=== PATIENT | male | born 1965 | race Caucasian/White ===

== ENCOUNTER 2019-01-05 03:06 | Inpatient (IN) | payer MEDICAID ==
[~2019-01-05] VITALS: Ht 180.3 cm; Wt 104.6 kg
[2019-01-05] MEDS ORDERED: PROPRANOLOL HCL20 MG PO (03:10)
[2019-01-05] MEDS ORDERED: CARAFATE1 G PO (03:10)
[2019-01-05] MEDS ORDERED: CLARITIN 10 MG10 MG PO (03:10)
[2019-01-05] MEDS ORDERED: PROTONIX40 MG PO (03:10)
[2019-01-05 03:44] LABS: BASOPHILS 0.5 % (0-2); EOSINOPHILS 2.1 % (0-7); HEMATOCRIT 45.1 % (42.0-54.0); IMMATURE GRANULOCYTES 0.6 % (0-5); LYMPHOCYTES 20.5 % (15-50); MCH 33.4 pg (26.0-34.0); MCHC 35.5 g/dL (31.0-37.0); MCV 94.2 fL (80.0-100.0); MEAN PLATELET VOLUME 11.6 fL (7.4-10.4); MONOCYTES 10.9 % (2-11); NEUTROPHILS 65.4 % (40-80); PLATELET COUNT 102 10x3/uL (130-400); RBC 4.79 10x6/uL (4.20-6.10); RDW 13.8 % (11.5-14.5); WBC 9.5 10x3/uL (4.8-10.8)
[2019-01-05 03:54] LABS: APTT 27.7 SECONDS (22.8-39.4); INR 1.24 (0.85-1.17); PROTIME 15.1 SECONDS (11.6-15.0)
[2019-01-05 03:56] LABS: ALBUMIN 2.6 g/dL (3.4-5.0); ALKALINE PHOSPHATASE 119 U/L (46-116); ALT (SGPT) 165 U/L (10-68); BILIRUBIN - TOTAL 1.63 mg/dL (0.2-1.3); CALC OSMOLALITY 281 mosm/kg (275-300); CARBON DIOXIDE 23.1 mmol/L (21.0-32.0); CHLORIDE - SERUM 108 mmol/L (98-107); CREATININE - SERUM 0.8 mg/dL (0.6-1.3); GLUCOSE 108 mg/dL (74-106); LIPASE 225 U/L (73-393); POTASSIUM - SERUM 4.3 mmol/L (3.5-5.1); PROTEIN - SERUM 7.2 g/dL (6.4-8.2); SODIUM 140 mmol/L (136-145); UREA NITROGEN 19 mg/dL (7-18); eGFR NON AFRICAN AMERICAN > 90 mL/min (90-120)
[2019-01-05 05:05] VITALS: BP 135/88
--- NOTE | 2019-01-05 05:33 | NUR ---
850 ML EMTPIED FROM URINAL
[2019-01-05 06:03] VITALS: BP 144/83
[2019-01-05 06:49] LABS: BASOPHILS 0.6 % (0-2); EOSINOPHILS 1.4 % (0-7); HEMOGLOBIN 14.9 g/dL (13.5-17.5); IMMATURE GRANULOCYTES 0.5 % (0-5); LYMPHOCYTES 26.3 % (15-50); MCH 33.3 pg (26.0-34.0); MCHC 35.5 g/dL (31.0-37.0); MCV 93.8 fL (80.0-100.0); MEAN PLATELET VOLUME 11.8 fL (7.4-10.4); MONOCYTES 11.1 % (2-11); NEUTROPHILS 60.1 % (40-80); PLATELET COUNT 100 10x3/uL (130-400); RBC 4.48 10x6/uL (4.20-6.10); RDW 13.9 % (11.5-14.5); WBC 8.4 10x3/uL (4.8-10.8)
--- NOTE | 2019-01-05 09:25 | NUR ---
VITAMIN K INFUSION COMPLETE AT 0859.
--- NOTE | 2019-01-05 09:56 | NUR ---
RECEIVED PT FROM ER ACCOMPANIED BY HOSPITAL STAFF AND PROJECT SYSTEMS ENGINEER. NS INFUSING @125ML/HR VIA L.AC PIV. PT IS AAO AND UP AD FRANCE PER PROJECT SYSTEMS ENGINEER ALLOWANCE. RR EVEN AND UNLABORED ON RA. PT DENIES ANY NEEDS AT THIS TIME. WILL CTM.
[2019-01-05 12:25] VITALS: BP 129/73; BMI 30.3
[2019-01-05 12:31] VITALS: BP 118/62
[2019-01-05 15:28] VITALS: BP 120/62
--- NOTE | 2019-01-05 18:02 | NUR ---
CONSENTS SIGNED FOR EGD TOMORROW. NS INFUSING @125ML/HR AND PROTONIX INFUSING @10ML/HR VIA R.AC PIV. RR EVEN AND UNLABORED ON RA. GUARD AT BEDSIDE. PT DENIES ANY NEEDS. WILL PASS REPORT AND CONTINUE WITH POC.
--- NOTE | 2019-01-05 19:42 | NUR ---
INITIAL ASSESSMENT COMPLETED - PT A/0 X4, REPORTS FEELING SLIGHTLY LIGHTHEADED. BP 98/65 WITH NS GOING AT 125 ML/HR. BP CHECKED 3 TIMES, STILL 98/65. WILL REASSESS IN 30-45 MINUTES AND DETERMINE IF FURTHER ACTION SHOULD BE TAKEN. MAP 76 MMHG. CL IN REACH, SR UP X2, BED IN LOWEST POSITION. RR EVEN AND UL NO S/S OF DISTRESS.
[2019-01-05 20:00] VITALS: BP 98/65
--- NOTE | 2019-01-05 23:06 | NUR ---
TO PT ROOM VIA CALL LIGHT. PT STATES "I FEEL LIKE I'M ABOUT TO PASS OUT." PT COLD AND CLAMMY TO THE TOUCH. STATES HE JUST HAD A BLACK TARRY BOWEL MOVEMENT AND IS NOT BACK IN BED. BP 118/65, HR STABLE PER SOCIAL SERVICES DESIGNEE AT 90. BLOOD SUGAR 131. SPO2 97%. LABS STABLE, CL IN REACH. WCTM. SR UP X2, BED IN LOWEST POSITION.
[2019-01-06] VITALS (28 sets, daily range): BP systolic 82–146; BP diastolic 52–80; BMI 29.9
--- NOTE | 2019-01-06 01:03 | NUR ---
TO PT ROOM VIA EMESIS SOUND. PT THROWING UP BRIGHT RED BLOOD PROFUSELY. PALE AND COLD. VSS. BP 107/62, HR 88. ADMINISTERED ANTIEMETIC AND CONTINUE PROTONIX DRIP AT 10 ML/HR AND NS AT 125 ML/HR. PT VOMITED 500 ML OF FLUID. NOTIFIED GI DOC TEST RACK OPERATOR, DR SEGAL. ORDERED STAT H&H LABS PER MD ORDER. WCTM. CL IN REACH, SR UPX2, BED IN LOWEST POSITION.
[2019-01-06 01:12] LABS: HEMATOCRIT 33.1 % (42.0-54.0); HEMOGLOBIN 11.7 g/dL (13.5-17.5)
--- NOTE | 2019-01-06 01:25 | NUR ---
RECEIVED STAT H&H LABS. HGB 11.7 AND HCT 33.1. WAS TOLD BY DR SEGAL TO NOTIFY HIM IF HGB WAS BELOW 10. WILL CONTINUE TO MONITOR CLOSELY. VSS. CL IN REACH, BED IN LOWEST POSITION.
[2019-01-06 03:19] LABS: HEMATOCRIT 31.6 % (42.0-54.0); HEMOGLOBIN 11.2 g/dL (13.5-17.5)
--- NOTE | 2019-01-06 03:42 | NUR ---
ARRIVED TO UNIT AFTER RAPID RESPONSE VIA STRETCHER ACCOMPANIED BY RN AND LICENSED GUIDE. PRESENTS PALE AND DIAPHORETIC. AAOX4. PERRLA. RT HAND 20G PIV INITIATED. + BLOOD DRAW AND RETURN. ORIENTED TO ROOM, NIGHT NURSE, AND CALL LANG SYSTEM. VERBALIZES UNDERSTANDING. SAFETY MEASURES IN PLACE. CBIR. WILL TRANFUSE PRBC PER MD ORDER.
--- NOTE | 2019-01-06 03:57 | NUR ---
TO PT ROOM AT 0300 VIA MONTRELL BUENROSTRO. PT VOMITTING BLOOD PROFUSELY. PT FILLED EMESIS BAG X3. PT DIAPHORETIC AND CLAMMY, COOL TO TOUCH. CALLED RAPID RESPONSE AT 0302. RAPID RESPONSE TEAM ARRIVED AT 0305. PT SUCTIONED WITH YONKER AND SAT UP IN BED 90 DEGREES. PT LETHERGIC, DISORIENTED. RESPONDS SLOWLY. PT LOOKS EXTREMELY PALE. 02 GOING AT 2L VIA NC. SPO2 95%. MARITIME OFFICER IN ROOM ALONG WITH ICU, RESPIRATORY, AND CHARGE NURSE. ELEVATED PTS ARMS AND LEGS. COMPLETE LINEN CHANGE DONE. NOTIFIED DR SEGAL. ORDERED STAT LABS PER MD ORDERS. MO, MARITIME OFFICER PUT IN ORDERS FOR BLOOD, ETC. PER MD. PT MAINTAINED NPO STATUS THROUGHOUT THE NIGHT. EGD WITH TIVA TO BE DONE AT 0700. TRANSFERED TO ICU AT 0345 PER MD ORDERS. NOTIFIED PRIMARY CARE PHYSICIAN AND GAVE REPORT TO MONTRELL DEVRIES AT 0350.
[2019-01-06 04:30] LABS: CKMB 0.5 U/L (0.0-3.6); CREATINE KINASE 31 UL (21-232)
[2019-01-06 04:35] LABS: TROPONIN-I 0.133 ng/mL (0.000-0.060)
--- NOTE | 2019-01-06 05:04 | NUR ---
EPISODE OF BRIGHT RED BLOODY EMESIS. APROX 100CC BLOOD LOSS.
[2019-01-06 05:53] LABS: ALBUMIN 2.2 g/dL (3.4-5.0); BILIRUBIN - TOTAL 1.49 mg/dL (0.2-1.3); CALCIUM 7.6 mg/dL (8.5-10.1); CARBON DIOXIDE 18.2 mmol/L (21.0-32.0); MAGNESIUM - SERUM 1.8 mg/dL (1.8-2.4); PROTEIN - SERUM 5.7 g/dL (6.4-8.2)
[2019-01-06 05:55] LABS: BASOPHILS 0.2 % (0-2); EOSINOPHILS 0.2 % (0-7); HEMATOCRIT 34.5 % (42.0-54.0); IMMATURE GRANULOCYTES 0.8 % (0-5); LYMPHOCYTES 21.2 % (15-50); MCH 32.3 pg (26.0-34.0); MCHC 34.8 g/dL (31.0-37.0); MEAN PLATELET VOLUME 11.7 fL (7.4-10.4); MONOCYTES 9.8 % (2-11); NEUTROPHILS 67.8 % (40-80); RBC 3.71 10x6/uL (4.20-6.10); RDW 14.2 % (11.5-14.5)
[2019-01-06 05:57] LABS: ANION GAP 16.6 mmol/L (8-16); CREATININE - SERUM 1.3 mg/dL (0.6-1.3); POTASSIUM - SERUM 5.8 mmol/L (3.5-5.1)
[2019-01-06 06:05] LABS: PLATELET COUNT 140 10x3/uL (130-400); WBC 16.6 10x3/uL (4.8-10.8)
--- NOTE | 2019-01-06 06:19 | NUR ---
DR. SEGAL NOTIFIED OVER CRITICAL LAB VALUES. UPDATE GIVEN. ALL QUESTIONS ANSWERED.
[2019-01-06 09:19] LABS: HEPATITIS C ANTIBODY >11.0 S/CO RAT (0.0-0.9)
--- NOTE | 2019-01-06 11:33 | NUR ---
0700 AM ASSESMENT DONE SEE FLOW SHEET FOR FINDINGS.. PT IS AWAKE WITH RN EMPLOYEE HEALTH AT THE BEDSIDE.. PT IS DENING C/ AT THIS TIME.. NO BOUTS OF NAUSEA AND OR VOMITING AT PRESENT.. 0800 ORAL SWABS GIVEN TO PT FOR C/O DRY MOUTH 0900 CONTINUES WIHTOUT CHANGES IN STATUS.. PT IS DOZING 1000 UNIT PRBC HUNG PER ORDER.. 1030 DR PATEL CALLED AND STATED SHE HAD ORDERED FFP... 1100 PRBC CONTINUES TO INFUSE, FFP HUNG AND STARTED INFUSION.. 1130 GI LAB AT BEDSIDE WITH DR PATEL.. DR PATEL VO SANDOSTATIN GTT..
--- NOTE | 2019-01-06 11:53 | NUR ---
4850 DR SANDY CONSULTED PER DR PATEL.. ORAL ETT IN PLACE.. DIPRIVAN INFUASING...PER ANESTHESIA AT BEDSIDE FOR GI..
--- NOTE | 2019-01-06 13:04 | NUR ---
1235 DR PATEL AND GI LAB GONE FROM BEDSIDE... PT REMAINS ORALLY INTUBATED DR SANDY IN SEEING PT SOFT RESTRAINSTS ON AT THIS TIME.. DIPRIVAN INFUSING.. GUARD AT BEDSIDE.. 3RD AND 4TH UNIT FFP STARTED PRBC CONTINUE TO INFUSE.. DR PATEL TALING TO IR RE PT... 1300 PRBC THRU INFUSING.. 1305 LAB IN TO DRAW BLOOD PER ORDER..
[2019-01-06 13:40] LABS: HEMATOCRIT 29.1 % (42.0-54.0); HEMOGLOBIN 10.1 g/dL (13.5-17.5)
--- NOTE | 2019-01-06 14:28 | NUR ---
1400 FFP AND PRBC THRU INFUSING , SANDOSTATIN DRIP INFUSING, NS HUNG AND REGLAN GIVEN. DIPRIVAN CONITNUES TO INFUSE. DR PATEL WANTS PT TO BE TOTALLY CALM AND RIDING VENT.. STATED THAT SHE WANTS DIPRIVAN TO CONTINUE TO INFUSE, SHE IS AWARE OF LIVER FUNCTION ...BUT STATES SHE CANNOT RISK ATIENT WAKING AND BREAKING CLOT IN GI TRACT LOOSE..
--- NOTE | 2019-01-06 16:00 | MORECARE ---
CASE MANAGEMENT DISCHARGE SUMMARY PATIENT: BRIAN GIRON UNIT: [id number] ADM DATE: 01/05/19 AGE: 53 : 65 SEX: M ROOM/BED: D.2306 AUTHOR: REESE HAYWARD PHYSICIAN: REFERRING PHYSICIAN: JAE FLORES DO DATE OF SERVICE: 01/06/19 Discharge Plan Patient Name: BRIAN GIRON [facility] [facility] 1965 Planned Disposition: Court\Law Enforcement Anticipated Discharge Date: Discharge Date: Expected LOS: Initial Reviewer: [email or web address] Initial Review Date: 01/05/2019 Generated: 01/06/19 5:00 pm Patient Name: BRIAN GIRON Page [phone] at 1600 All edits/amendments must be made on the electronic document DICTATION DATE: 01/06/199 CORPORATE OPERATIONS COMPLIANCE MANAGER: PERLA 01/06/19 155 RPT#: [id number] DC DATE: STATUS: ADM IN [facility] [address] [place] [address] END OF REPORT
--- NOTE | 2019-01-06 16:10 | MORECARE ---
CASE MANAGEMENT DISCHARGE SUMMARY PATIENT: BRIAN GIRON UNIT: [id number] ADM DATE: 01/05/19 AGE: 53 : 65 SEX: M ROOM/BED: D.2306 AUTHOR: REESE HAYWARD PHYSICIAN: REFERRING PHYSICIAN: JAE FLORES DO DATE OF SERVICE: 01/06/19 Discharge Plan Patient Name: BRIAN GIRON [facility] [facility] 1965 Planned Disposition: Court\Law Enforcement Anticipated Discharge Date: Discharge Date: Expected LOS: Initial Reviewer: [email or web address] Initial Review Date: 01/05/2019 Generated: 01/06/19 5:10 pm Comments DCP- Discharge Planning Updated by [email or web address]: Deana Barfield on 01/06/19 3:[address] Patient Name: BRIAN GIRON Admission Status: ER Accout number: [id number] Admission Date: 01-05-2019 : 1965 Admission Diagnosis: Attending: JAE FLORES Current LOS: 1 Anticipated DC Date: Planned Disposition: Court\Law Enforcement Primary Insurance: MEDICAID GROUP HOME PENDING Discharge Planning Comments: PATIENT IS CURRENTLY ON VENT / SEDATED. HE IS PRISONER AT [facility] AND WILL RETURN UPON DISCHARGE. GUARD IN ROOM WITH PATIENT. CM WILL CONTINUE TO FOLLOW AND ASSIST NEEDED. Atomic Process Engineer: Deana Barfield Last DP export: 01/06/19 3:00 pm Patient Name: BRIAN GIRON Page [phone] at 1610 All edits/amendments must be made on the electronic document DICTATION DATE: 01/06/19 1610 [employer] ARCHITECT: PERLA 01/06/19 1610 RPT#: [id number] DC DATE: STATUS: ADM IN [facility] [address] [place] [address] END OF REPORT
--- NOTE | 2019-01-06 17:22 | NUR ---
1500 PT REDIED AND PORTABLE VENT SET UP FOR TRANSPORT TO CT SCAN PER ORDER.. [address] SCAN RT AND RN WITH PT..25 MCG FENTANYLL GIVEN PRIOR TO TRANSPORT.. DIPRIVAN CONTINUES TO IINFUSE [address] BATH WITH COMPLETE LINEN CHANGE DONE.. INCONTINENT OF BLACK TARRY STOOL.. PT REMAINS SEDATED ON VENT ... 1615 UNIT PRBC HUNG PER ORDER.. INTO THE PICC LINE
--- NOTE | 2019-01-06 17:32 | NUR ---
6940 DR SOARES IN TO SEE PT.. SPOKE WITH DR PATEL AT BEDSIDE.. DR SANDY IN UPDATE GIVEN..
--- NOTE | 2019-01-06 18:32 | NUR ---
1800 LAB DRAWN AND AMMOMNIA LEVEL [address] PATEL.. HOLD EMEMAS FOR NOW REDRAW IN AM 1830 DR SOARES CALLED WITH AMMONIA LEVEL RESULTS..
--- NOTE | 2019-01-06 19:32 | NUR ---
BEDSIDE SHIFT REPORT GIVEN BY DEPARTING RN. PT SEDATED ON VENT. SEE VENT FLOWSHEET FOR FULL DETAILS. PERRLA. OPENS EYES TO TACTILE STIMULATION. PULSES PALPATED T/O. HYPERACTIVE BS HEARD IN ALL FOUR QUADS. ASSESSMENT COMPLETE. SEE FLOWSHEET FOR DETAILS. REPOSITIONED AND ORAL CARE PROVIDED. SAFETY MEASURES IN PLACE. CBIR.
[2019-01-06 20:38] LABS: HEMATOCRIT 27.7 % (42.0-54.0); HEMOGLOBIN 9.6 g/dL (13.5-17.5)
--- NOTE | 2019-01-06 21:48 | NUR ---
HS MEDS GIVEN. TOLERATED WELL.
--- NOTE | 2019-01-06 23:51 | NUR ---
REASSESSMENT COMPLETE. NO CHANGES IN PT CONDITION. REPOSITIONED. ORAL CARE PROVIDED.
[2019-01-07] VITALS (26 sets, daily range): BP systolic 117–191; BP diastolic 69–100
[2019-01-07 00:56] LABS: HEMOGLOBIN 10.9 g/dL (13.5-17.5)
--- NOTE | 2019-01-07 01:06 | NUR ---
REPOSITIONED. ORAL CARE PROVIDED. NO SS OF DISTRESS NOTED.
--- NOTE | 2019-01-07 03:07 | NUR ---
REPOSITIONED. ORAL CARE PROVIDED. NO CHANGE IN PT CONDITION.
[2019-01-07 04:35] LABS: HEMATOCRIT 30.9 % (42.0-54.0); HEMOGLOBIN 10.7 g/dL (13.5-17.5); MCH 30.9 pg (26.0-34.0); MCHC 34.6 g/dL (31.0-37.0); MCV 89.3 fL (80.0-100.0); PLATELET COUNT 78 10x3/uL (130-400); RBC 3.46 10x6/uL (4.20-6.10); RDW 16.3 % (11.5-14.5); WBC 21.2 10x3/uL (4.8-10.8)
[2019-01-07 04:50] LABS: ALBUMIN 2.3 g/dL (3.4-5.0); BILIRUBIN - TOTAL 1.16 mg/dL (0.2-1.3); CALCIUM 7.5 mg/dL (8.5-10.1); CARBON DIOXIDE 20.6 mmol/L (21.0-32.0); CREATININE - SERUM 1.2 mg/dL (0.6-1.3); MAGNESIUM - SERUM 1.7 mg/dL (1.8-2.4); PROTEIN - SERUM 5.3 g/dL (6.4-8.2)
[2019-01-07 04:52] LABS: POTASSIUM - SERUM 4.6 mmol/L (3.5-5.1)
[2019-01-07 04:56] LABS: LYMPHOCYTES 15 % (15-50); MONOCYTES 15 % (2-11); NEUTROPHILS 70 % (40-80)
[2019-01-07 04:57] LABS: PLATELET ESTIMATE DECREASED
[2019-01-07 06:22] LABS: INR 1.27 (0.85-1.17); PROTIME 15.3 SECONDS (11.6-15.0)
--- NOTE | 2019-01-07 06:32 | NUR ---
SEIZURE LIKE ACTIVITY. VIKA PHONED. ORDER TO INCREASE SEDATION AND GIVE PRN VERSED.
--- NOTE | 2019-01-07 06:48 | NUR ---
DYLAN INFORMED OF PT STATUS AND LAB LEVELS. ORDERS TO GIVE LACTULOSE ENEMA.
--- NOTE | 2019-01-07 09:17 | NUR ---
0700 PT RECIEVED SEDATED ON VENT, VSS, NO SIGNS OF PAIN, PICC LINE TO LUE, R HAND AND R AC PIV, SANDOSTATIN 10ML/HR, NS 100ML/HR, PROTONIX 10ML/HR, MORALES DRAINING CONCENTRATED URINE, NO SIGNS OF BLEEDING [address] PATEL AND DR SANDY, NO SINGS OF BLEEDING AFTER ENEMA, NO SIGNS OF PAIN, WILL WEAN OFF DIPROVAN AND BEGIN VENT WEANING 0915 DARK JELLO LIKE BOWEL MOVEMENT, TOTAL LINEN CHANGE AND BED BATH, DR SANDY AND AMANDA NOTIFIED PER DR PATEL LACTULOSE ENEMAS BID
--- NOTE | 2019-01-07 10:26 | NUR ---
PT REMAINS UNABLE TO FOLLOW COMMANDS OR OPEN EYES TO VERBAL STIMULI, DR SANDY AWARE
--- NOTE | 2019-01-07 10:50 | NUR ---
PT NOTED TO HAVE ANOTHER DARK LIQUID STOOL, LINENS CHANGED AND PERICARE PROVIDED, NOTED TO HAVE SHIVERING.SHAKING MOTION IN UPPER EXTRMETIES AND NO LONGER WITHDRAWING TO PAIN, DR SANDY IN UNIT AND CALLED TO ROOM TO ASSESS PT, SEDATION TO REMAIN OFF AND CT ORDERED
--- NOTE | 2019-01-07 12:17 | NUR ---
1130PT TO CT WITHRT AND MYSELF AND RETURNED TO ROOM, CONTINUES WITH INTERMITTEN SHIVERING/SHAKING MOTION
[2019-01-07 12:26] LABS: HEMATOCRIT 31.5 % (42.0-54.0); HEMOGLOBIN 10.9 g/dL (13.5-17.5)
--- NOTE | 2019-01-07 12:59 | NUR ---
NOTIFIED DR SANDY OF HR AND BP ELEVATION SINCE HEAD CT, ORDERS TO RESTART DIPROVAN, START FENTANYL, GIVE 2MG VERSED NOW.
--- NOTE | 2019-01-07 17:12 | NUR ---
1500 PT REPOSITIONED NO SIGNS OF BLEEDING, WITHDRAWS TO PAIN FROM CHEST AREA BUT NOT EXTREMETIES, PUPILS REACTIVE 1700 PUPILS FIXED AND NO LONGER REACTING TO PAIN OR GAGGING WITH SUCTION, DR RAI NOTIFIED WITH ORDERS TO CONSULT ALLAN AT [facility] AND REPEAT HEAD CT IN AM, NOTIFIED DR SANDY WELL PER DR RAI, SPOKE WITH DR LEMUS WHO SUGGESTED CEREBRAL FLOW SSTUDY IN AM INSTEAD OF CT, SPOKE WITH DR RAI AND AGREED FLOW STUDY INSTEAD OF CT IN AM.
[2019-01-07 18:25] LABS: HEMATOCRIT 29.2 % (42.0-54.0); HEMOGLOBIN 10.1 g/dL (13.5-17.5)
--- NOTE | 2019-01-07 18:41 | NUR ---
SPOKE WITH DR SANDY IN UNIT, STATED TO WEAN PROPOFOL TO SEE IF PT AWAKENS, PROPOFOL DOWN TO 15MCG,
--- NOTE | 2019-01-07 18:54 | NUR ---
SPOKE WITH REINIER FROM [facility] ON PT CONDITION
--- NOTE | 2019-01-07 19:20 | NUR ---
RECEIVED PATIENT CARE - SHIFT ASSESSMENT COMPLETED. PT UNRESPONSIVE TO PAIN, PUPILS 2 AND FIXED. SINUS TACH 120 NOTED AT THIS TIME. BP SLIGHTLY ELEVATED. CPOC
--- NOTE | 2019-01-07 22:15 | NUR ---
DR. FLORES CONTACTED BY JANETT PATIÑO RN REGARDING PATIENT BP - NEW ORDERS RECEIVED
--- NOTE | 2019-01-07 22:40 | NUR ---
REASSESSMENT COMPLETED. PT MOVING HEAD, GAG REFLEX INTACT, PUPILS REACTIVE - SEE FLOWSHEET FOR FURTHER DETAIL
--- NOTE | 2019-01-07 23:08 | NUR ---
ORDERING BOX OPERATOR CONTACTED REGARDING MEDICATIONS NEEDED
[2019-01-08] VITALS (24 sets, daily range): BP systolic 101–155; BP diastolic 59–88
--- NOTE | 2019-01-08 00:55 | NUR ---
[facility]
[2019-01-08 02:16] LABS: BASOPHILS 0.4 % (0-2); EOSINOPHILS 0.2 % (0-7); HEMATOCRIT 31.6 % (42.0-54.0); HEMOGLOBIN 10.5 g/dL (13.5-17.5); IMMATURE GRANULOCYTES 1.2 % (0-5); LYMPHOCYTES 18.6 % (15-50); MCH 30.8 pg (26.0-34.0); MCHC 33.2 g/dL (31.0-37.0); MONOCYTES 5.9 % (2-11); NEUTROPHILS 73.7 % (40-80); PLATELET COUNT 68 10x3/uL (130-400); RBC 3.41 10x6/uL (4.20-6.10); RDW 16.6 % (11.5-14.5)
--- NOTE | 2019-01-08 02:18 | NUR ---
DR. FLORES RETURNED CALLED - NEW ORDERS RECEIVED
[2019-01-08 02:21] LABS: MCV 92.7 fL (80.0-100.0); WBC 10.1 10x3/uL (4.8-10.8)
[2019-01-08 02:30] LABS: ALBUMIN 2.3 g/dL (3.4-5.0); ANION GAP 14.1 mmol/L (8-16); BILIRUBIN - TOTAL 2.18 mg/dL (0.2-1.3); CALCIUM 7.3 mg/dL (8.5-10.1); CARBON DIOXIDE 20.9 mmol/L (21.0-32.0); CREATININE - SERUM 1.3 mg/dL (0.6-1.3); MAGNESIUM - SERUM 1.9 mg/dL (1.8-2.4); PROTEIN - SERUM 5.4 g/dL (6.4-8.2)
--- NOTE | 2019-01-08 02:55 | NUR ---
REASSESSMENT COMPLETED SEE FLOWSHEET
--- NOTE | 2019-01-08 04:03 | NUR ---
TEMP REEVALUATED 99.6 PATIENT STILL SINUS TACH RATE 146
--- NOTE | 2019-01-08 07:30 | NUR ---
REC'ED REPORT FROM OUT GOING RN - R.TTl AT BEDSIDE - INFORMED THIS RN PATIENT WAS PLACED ON RESTRAINTS HE WAS RAISING ARMS TRYING TO PULL OUT INTUBATION TUBE - ORDER ENTERED PER PROTOCOL - CPOC AND MONTIOR CLOSELY
--- NOTE | 2019-01-08 07:50 | NUR ---
ASSESSMENT COMPLETE - OFFICER SCHULTZ AT [facility] FOR MONITORING - [facility]
--- NOTE | 2019-01-08 08:11 | NUR ---
ASKED CREATIVE RESOURCE MANAGER TO BRING LACTULOSE ENEMIA Rx - TECH VERBALIZED UNDERSTANDING
--- NOTE | 2019-01-08 08:36 | NUR ---
DR. SANDY AT BEDSIDE - ORDERED ONE TIME METOPROLOL - MONITOIR AND REPORT FINDINGS
--- NOTE | 2019-01-08 09:39 | NUR ---
SPOKE TO ANETTE DEL VALLE - REVIEWED PT'S CONDITION - WILL CONTINUE TO FOLLOW
--- NOTE | 2019-01-08 09:40 | NUR ---
[facility] JEREMY (JOHN) CALLED TO DISCUSS CERBREAL BLOOD FLOW STUDY - INFORMED PER REPORT DR TELLO WILL COME TO UNIT AROUND 10:00 TO REVIEW PATIENT'S CONDITION - NOTIED PLAN FOR 11:30 - ASKED TO NOTIFY JOHN IF CONTINUE PROCEDURE -
--- NOTE | 2019-01-08 09:45 | NUR ---
ELIGIO CALLED TO REVIEW GLASCOW SCALE (10) THIS A.M. - INFORMED THEY WILL STOP FOLLOWING PATIENT AT THIS TIME. CPOC
--- NOTE | 2019-01-08 10:45 | NUR ---
DR. PATEL AT BEDSIDE FOR ASSESSMENT - AWAITING NEW ORDERS - CPOC
--- NOTE | 2019-01-08 11:00 | NUR ---
CPAP AT 40% PER R.T. - DR. SANDY INFORMED
--- NOTE | 2019-01-08 11:37 | NUR ---
CONFIRMED WITH OFFICER SCHULTZ - SISTER MS. SERRANO AND BROTHER MR. GIRON HAS PERMISSION TO VISIT PATIENT. INFORMED FURRIER DESIGNER. REMINDED VISITING HOURS BEGIN AT NOON TILL 2PM. FURRIER DESIGNER WILL INFORM FAMILY
--- NOTE | 2019-01-08 11:55 | NUR ---
FAMILY CAME TO BEDSIDE - ASKED QUESITON - HOWEVER, R.T. AT BEDSIDE INSTRUCTED FAMILY A ABG TEST NEEDS TO BE DONE AND THEY CAN COME IN AFTER PROCEDURE TO VISIT. FAMILY VERBALIZED UDNERSTTANDING.
--- NOTE | 2019-01-08 12:14 | NUR ---
DR. SANDY AT BEDSIDE - ORDERS RECIEVED - SEE MAR -
--- NOTE | 2019-01-08 13:10 | NUR ---
FAMILY LEFT TO EAT AND ASKED FOR PATIENT'S BATH TO WAIT UNTIL AFTER THE CURRENT VISITATION - CPOC
[2019-01-08 13:23] LABS: HEMATOCRIT 27.3 % (42.0-54.0); HEMOGLOBIN 9.1 g/dL (13.5-17.5)
--- NOTE | 2019-01-08 13:40 | NUR ---
A FEMALE CALLED WITH [employer] - INFORMED THIS RN SHE WAS A NURSE AND WANTED TO DISCUSS MEDICAL DETIALS OF PATIENT - INFORMED HER THIS RN WAS NOT COMFORTABLE WITH THE CONVERSATION AND WOULD DISCUSS WITH FAMILY AND FACILITY STAFF TO CONFIEDENTIALITY OF PATIENT'S CARE. VERBALIZED UNDERSTANDING - CALL WAS DICONNECTED
--- NOTE | 2019-01-08 13:52 | NUR ---
INFORMED SISTER/BROTHER OF ABOVE PHONE CALL - REVIEWED CONCERNS TO PATIENT'S PRIVACY HE IS CONFIDENTAL STATUS - SISTER/BROTHER HAD SPECIAL PERMISSION TO SEE PATIENT PATIENT'S CONDITION WAS DETEROIATING - VERBALIZED UNDERSTANDING. FAMILY GAVE DIRECT PHONE NUMBERS ASKED FOR STAFF TO CALL WHEN PATIENT IS EXTUBATED - ADOLFO GIRON: [phone] - OR - [phone] ZARI SERRANO [phone]
--- NOTE | 2019-01-08 14:30 | NUR ---
TOTAL BED BATH - CHANGED LINENS/BED CLOTHES - REPOSITIONED PT - VSS - CPOC
--- NOTE | 2019-01-08 15:26 | NUR ---
Mar AT BEDSIDE FOR TREATMENT - VSS - CPOC
--- NOTE | 2019-01-08 16:00 | NUR ---
I&O COMPLTETED - LACTOSE ENEMA GIVEN
[2019-01-08 18:42] LABS: HEMOGLOBIN 8.6 g/dL (13.5-17.5)
--- NOTE | 2019-01-08 19:25 | NUR ---
CLEANED PT - CHANGED LINENS/CLOTHES WITH ASSISTX 3 REPORT TAYLOR TO DIANA HILLS
--- NOTE | 2019-01-08 19:40 | NUR ---
RECEIVED PATIENT CARE - SHIFT ASSESSMENT COMPLETED SEE FLOWSHEET
--- NOTE | 2019-01-08 20:48 | NUR ---
PATIENT IN NEED OF 1 UNIT PER GI PARAMETERS AND LAST LAB DRAW AT 1820 - CONTACTED LAB - 1 UNIT IS AVAILABLE FOR THIS PATIENT
--- NOTE | 2019-01-08 21:19 | NUR ---
1 UNIT PRBC INTIATED
--- NOTE | 2019-01-08 22:03 | NUR ---
RT AT BEDSIDE, PATIENT IS ON A RATE - LIGHT SEDATION INITIATED
--- NOTE | 2019-01-08 23:33 | NUR ---
UNIT PRBC COMPLETED AT THIS TIME, SHIFT ASSESSMENT COMPLETED 2308 - CPOC - STARTED LIGHT SEDATION MEDICATION FOR VENTILATOR COMPLIANCE PER ORDER. SEE EMAR FOR ADMINISTRATION
[2019-01-09] VITALS (25 sets, daily range): BP systolic 98–198; BP diastolic 55–107; Ht 180.3 cm; Wt 104.6 kg
[2019-01-09 01:25] LABS: HEMATOCRIT 26.2 % (42.0-54.0); HEMOGLOBIN 8.8 g/dL (13.5-17.5)
--- NOTE | 2019-01-09 05:23 | NUR ---
PT SISTER CALLED FOR UPDATE. GUARD AT BEDSIDE SAID COMMUNICATION BETWEEN NURSE AND FAMILY IS PER FACILITY PROTOCOL. IN PERSON VISITATION MUST BE APPROVED THROUGH [facility]. SISTER GAVE PASSWORD UPDATE GIVEN ALL QUESTIONS ANSWERED WILL CONTINUE TO MONITOR
[2019-01-09 06:12] LABS: INR 1.56 (0.85-1.17); PROTIME 18.1 SECONDS (11.6-15.0)
[2019-01-09 06:13] LABS: BASOPHILS 0.5 % (0-2); EOSINOPHILS 1.8 % (0-7); HEMATOCRIT 25.1 % (42.0-54.0); HEMOGLOBIN 8.4 g/dL (13.5-17.5); IMMATURE GRANULOCYTES 0.5 % (0-5); LYMPHOCYTES 22.5 % (15-50); MCHC 33.5 g/dL (31.0-37.0); MCV 92.6 fL (80.0-100.0); MEAN PLATELET VOLUME 11.7 fL (7.4-10.4); MONOCYTES 12.2 % (2-11); NEUTROPHILS 62.5 % (40-80); RDW 16.2 % (11.5-14.5)
[2019-01-09 06:15] LABS: PLATELET COUNT 29 10x3/uL (130-400); RBC 2.71 10x6/uL (4.20-6.10); WBC 4.4 10x3/uL (4.8-10.8)
[2019-01-09 06:36] LABS: ALKALINE PHOSPHATASE 48 U/L (46-116); BILIRUBIN - TOTAL 2.69 mg/dL (0.2-1.3); CALCIUM 7.1 mg/dL (8.5-10.1); CHLORIDE - SERUM 113 mmol/L (98-107); MAGNESIUM - SERUM 2.2 mg/dL (1.8-2.4); POTASSIUM - SERUM 3.6 mmol/L (3.5-5.1); PROTEIN - SERUM 4.6 g/dL (6.4-8.2); SODIUM 148 mmol/L (136-145); UREA NITROGEN 29 mg/dL (7-18); eGFR NON AFRICAN AMERICAN 83 mL/min (90-120)
[2019-01-09 06:37] LABS: ALBUMIN 1.7 g/dL (3.4-5.0); ALT (SGPT) 48 U/L (10-68); CALC OSMOLALITY 308 mosm/kg (275-300); GLUCOSE 259 mg/dL (74-106)
--- NOTE | 2019-01-09 07:25 | NUR ---
REPORT RECIEVED, SHIFT ASSESSMENT COMPLETE, PT IS RESTRAINED ON VENT, ALL PPP, VSS, WILL CON'T TO MONITOR
--- NOTE | 2019-01-09 07:40 | NUR ---
CRITICAL LAB RESULTS CALLED TO DR PATEL - NEW ORDERS RECEIVED
[2019-01-09 08:08] LABS: PLATELET ESTIMATE DECREASED
--- NOTE | 2019-01-09 11:09 | NUR ---
REASSESSMENT COMPLETE, PT MORE AWAKE AT THIS TIME, NO OTHER CHANGES NOTED, ALL PPP, VSS, WILL CON'T TO MONITOR
--- NOTE | 2019-01-09 12:10 | NUR ---
PT EXTUBATED TO 75% BIPAP
--- NOTE | 2019-01-09 13:08 | NUR ---
PT REMAINS ON BIPAP, DR. PATEL AT BEDSIDE, UPDATE GIVEN
[2019-01-09 15:02] LABS: HEMATOCRIT 29.8 % (42.0-54.0)
[2019-01-09 15:03] LABS: HEMOGLOBIN 10.1 g/dL (13.5-17.5)
--- NOTE | 2019-01-09 15:13 | NUR ---
DR. BECK AT BEDSIDE, UPDATE GIVEN, NEW ORDERS RECIEVED,
[2019-01-09 15:42] LABS: D-DIMER-QUANTITATIVE 1.83 ug/mLFEU (0.20-0.54)
--- NOTE | 2019-01-09 17:30 | NUR ---
LG BM AT THIS TIME, COMPLETE BATH AND LINEN CHANGE
--- NOTE | 2019-01-09 19:00 | NUR ---
RECEIVED PATIENT CARE, SHIFT ASSESSMENT COMPLETED SEE FLOWSHEET.
--- NOTE | 2019-01-09 20:11 | NUR ---
RECEIVED PT CARE - SHIFT ASSESSMENT COMPLETED SEE FLOWSHEET - PATIENT AAOX3 - REQUESTING COKE, NO DIET ORDERED AT THIS TIME. VSS - ELEVATED SYSTOLIC NOTED AT THIS TIME. PT STATES HE TAKES MEDICATION FOR HYPERTENSION. CPOC
--- NOTE | 2019-01-09 21:08 | NUR ---
HS MEDS RECEIVED - PT AAOX3 - VSS CPOC
[2019-01-09 21:38] LABS: HEMATOCRIT 29.5 % (42.0-54.0); HEMOGLOBIN 9.9 g/dL (13.5-17.5)
--- NOTE | 2019-01-09 22:26 | NUR ---
GUARD AT BEDSIDE, GUARD RESTRAINED PATIENT LEGS TO BED ATTEMPTING TO CLIMB OUT OF BED. PT RESTING COMFORTABLY AT THIS TIME. BIPAP @ 75 - VSS. CPOC
--- NOTE | 2019-01-09 23:08 | NUR ---
REASSESSMENT COMPLETED SEE FLOWSHEET PT TAKING OFF BIPAP - PT EDUCATED ABOUT IMPORTANCE OF MASK
[2019-01-10] VITALS (24 sets, daily range): BP systolic 97–128; BP diastolic 59–78
--- NOTE | 2019-01-10 02:08 | NUR ---
PT RECEIVED FULL BATH AND LINEN CHANGE. 600CC LIQUID BLACK STOOL NOTED. NEW STAT LOCK AND SCDS APPLIED TO PATIENT. PATIENT PERFORMED ORAL CARE WITH SET UP. VSS. CPOC
--- NOTE | 2019-01-10 03:30 | NUR ---
REASSESSMENT COMPLETED SEE FLOWSHEET
--- NOTE | 2019-01-10 04:28 | NUR ---
RT AT BEDSIDE, BIPAP REMOVED AT THIS TIME - PATIENT PUT ON NASAL CANNULA
[2019-01-10 05:30] LABS: BASOPHILS 0.2 % (0-2); EOSINOPHILS 1.5 % (0-7); HEMATOCRIT 29.3 % (42.0-54.0); HEMOGLOBIN 9.8 g/dL (13.5-17.5); IMMATURE GRANULOCYTES 1.1 % (0-5); LYMPHOCYTES 14.7 % (15-50); MCH 31.1 pg (26.0-34.0); MCHC 33.4 g/dL (31.0-37.0); MEAN PLATELET VOLUME 11.1 fL (7.4-10.4); MONOCYTES 12.8 % (2-11); NEUTROPHILS 69.7 % (40-80); RBC 3.15 10x6/uL (4.20-6.10); RDW 16.2 % (11.5-14.5); WBC 4.7 10x3/uL (4.8-10.8)
[2019-01-10 05:31] LABS: PLATELET COUNT 39 10x3/uL (130-400)
--- NOTE | 2019-01-10 05:34 | NUR ---
SISTER CALLED FOR UPDATE. ALL QUESTIONS ANSWERED UPDATE GIVEN
[2019-01-10 05:57] LABS: PLATELET ESTIMATE DECREASED; PLATELET MORPHOLOGY NORMAL PLT MORPH
[2019-01-10 06:03] LABS: ALKALINE PHOSPHATASE 61 U/L (46-116); ALT (SGPT) 49 U/L (10-68); BILIRUBIN - TOTAL 4.23 mg/dL (0.2-1.3); CALCIUM 7.7 mg/dL (8.5-10.1); CARBON DIOXIDE 26.9 mmol/L (21.0-32.0); MAGNESIUM - SERUM 2.3 mg/dL (1.8-2.4); POTASSIUM - SERUM 3.7 mmol/L (3.5-5.1); PROTEIN - SERUM 5.4 g/dL (6.4-8.2); SODIUM 154 mmol/L (136-145); UREA NITROGEN 24 mg/dL (7-18); eGFR NON AFRICAN AMERICAN 83 mL/min (90-120)
[2019-01-10 06:19] LABS: CALC OSMOLALITY 310 mosm/kg (275-300); GLUCOSE 131 mg/dL (74-106)
[2019-01-10 06:22] LABS: CHLORIDE - SERUM 119 mmol/L (98-107)
--- NOTE | 2019-01-10 07:00 | NUR ---
REPORT RECEIVED INITIAL ASSESSMENT COMPLETE. PT SITTING UP IN BED AWAKE ALERT AND ORIENTED FOLLOWS COMMANDS. RESP EVEN NONLABORED HAVE INSTRUCTED HIM TO TAKE DEEP BREATHS HIS O2 SATS DROP TO 89. O2 NC 6LPM. CM NSR ALARMS ON AND AUDIBLE. GUARD AT BEDSIDE
[2019-01-10 07:49] LABS: INR 1.3 (0.85-1.17); PROTIME 15.6 SECONDS (11.6-15.0)
--- NOTE | 2019-01-10 09:00 | NUR ---
PT HAD SMALL LIQUID BROWN STOOL, PARTIAL BED BATH
--- NOTE | 2019-01-10 10:22 | NUR ---
Nutrition follow-up: Pt extubated 01/09/19; remains NPO due to GI bleed Labs reviewed +BM; Lactulose BID to elevated NH3 Wt: 218# Will need nutrition support started if diet unable to start within [address] following.
--- NOTE | 2019-01-10 11:00 | NUR ---
REASSESSMENT MADE. VSS NO CHANGES
--- NOTE | 2019-01-10 12:15 | NUR ---
DR SCHERER HERE FOR ROUNDS
--- NOTE | 2019-01-10 14:00 | NUR ---
PT RESTING QUIETLY WITH EYES CLOSED VSS GUARD AT BEDSIDE
[2019-01-10 16:46] LABS: HEMATOCRIT 30.5 % (42.0-54.0)
--- NOTE | 2019-01-10 17:00 | NUR ---
PT HAD LARGE LIQUID DARK BROWN STOOL. COMPLETE LINEN CHANGE PARTIAL BED BATH.
--- NOTE | 2019-01-10 18:00 | NUR ---
DR PATEL ROUNDS SHE DID OK HIM TO HAVE ICE CHIPS.
[2019-01-10 21:48] LABS: HEMATOCRIT 32.5 % (42.0-54.0); HEMOGLOBIN 10.8 g/dL (13.5-17.5)
--- NOTE | 2019-01-10 22:53 | NUR ---
LACTULOSE ENEMA GIVEN AND PATIENT TOLERATED WELL. PT IS SITTING WITH HOB, COOPERATIVE, ELEVATED, AND EATING ICE CHIPS.
[2019-01-11] VITALS (24 sets, daily range): BP systolic 103–157; BP diastolic 54–94
--- NOTE | 2019-01-11 07:00 | NUR ---
SHIFT ASSESSMENT COMPLETED, PT CARE ASSUMED, MONITORS ON AND WORKING, VITALS STABLE, PT AWAKE AND ALERT, NO SIGNS/SYMPTOMS OF PAIN OR DISCOMFORT, WILL CONTINUE TO OBSERVE.
[2019-01-11 07:26] LABS: BASOPHILS 0.3 % (0-2); EOSINOPHILS 0 % (0-7); HEMATOCRIT 32.9 % (42.0-54.0); HEMOGLOBIN 10.7 g/dL (13.5-17.5); IMMATURE GRANULOCYTES 1.3 % (0-5); LYMPHOCYTES 15.6 % (15-50); MCH 30.8 pg (26.0-34.0); MCHC 32.5 g/dL (31.0-37.0); MCV 94.8 fL (80.0-100.0); MEAN PLATELET VOLUME 11.2 fL (7.4-10.4); MONOCYTES 5.3 % (2-11); NEUTROPHILS 77.5 % (40-80); RBC 3.47 10x6/uL (4.20-6.10); RDW 16.2 % (11.5-14.5); WBC 3.8 10x3/uL (4.8-10.8)
[2019-01-11 07:27] LABS: ALKALINE PHOSPHATASE 68 U/L (46-116); ALT (SGPT) 57 U/L (10-68); BILIRUBIN - TOTAL 3.62 mg/dL (0.2-1.3); CALC OSMOLALITY 312 mosm/kg (275-300); CALCIUM 7.7 mg/dL (8.5-10.1); CARBON DIOXIDE 24.8 mmol/L (21.0-32.0); CREATININE - SERUM 0.9 mg/dL (0.6-1.3); GLUCOSE 149 mg/dL (74-106); POTASSIUM - SERUM 3.7 mmol/L (3.5-5.1); PRO BNP 2220 pg/mL (0-125); PROTEIN - SERUM 5.4 g/dL (6.4-8.2); SODIUM 153 mmol/L (136-145); UREA NITROGEN 28 mg/dL (7-18); eGFR NON AFRICAN AMERICAN > 90 mL/min (90-120)
[2019-01-11 07:32] LABS: CHLORIDE - SERUM 117 mmol/L (98-107)
[2019-01-11 07:44] LABS: PLATELET COUNT 41 10x3/uL (130-400)
--- NOTE | 2019-01-11 09:00 | NUR ---
NO CHANGES, MONITORS ON AND WORKING. VITALS STABLE, PT AWAKE AND ALERT, CALL LIGHT WITHIN REACH, WILL CONTINUE TO OBSERVE.
--- NOTE | 2019-01-11 10:45 | EC ---
PATIENT:BRIAN GIRON DATE OF SERVICE: 01/05/19 SEX: M MEDICAL RECORD: [id number] DATE OF : 65 LOCATION:D[facility] D.230 AGE OF PATIENT: 53 ADMISSION DATE: 01/05/19 REFERRING PHYSICIAN: INTERPRETING PHYSICIAN: MADELINE WALDRON MD ECHOCARDIOGRAM REPORT ECHO CHARGES 4 ECHO COMPLETE Date: 01/10/19 CLINICAL DIAGNOSIS: LVF ECHOCARDIOGRAPHIC MEASUREMENTS (adult normal given) AC root (d.<3.7cm) 2.3 cm LV Septum d (<1.2 cm> 0.7 cm Valve Excursion 2.1 cm LV Septum (systole) 1.8 cm Left Atria (s.<4.0cm> 4.0 cm LVPW d(<1.2cm) 1.3 cm RV (d.<2.3cm) 3.2 cm LVPW (sytole) 1.7 cm LV diastole(<5.6CM) 5.7 cm MV E-F(>70mm/sec) cm LV systole 2.8 cm LVOT Diameter 1.5 cm MV exc.(>10mm) cm Est.ejection fraction (50-75%) % DOPPLER: LVIT cm/sec A 99 cm/sec E 94 cm/sec LA cm/sec RVSP 37.0 mmHg LVOT 148 cm/sec AOP1/2T m/s Asc. Ao 181 cm/sec RVOT 64 cm/sec RA cm/sec PA 127 cm/sec AV Gradient Peak 13.1 mmHg AV Mean 7.2 mmHg AV Area 1.6 cm MV Gradient Peak 5.8 mmHg MV Mean 3.2 mmHg MV Area cm COMMENTS: Evaluation Assistant: Hasmukh GUERRAHAL JULIANNA Executive Coordinator: Lucero Crook TAPE# PACS Pericardial Effusion N DATE OF SERVICE: FINDINGS: 1. Left ventricular chamber size is within normal limits. Left ventricular systolic function is normal. Overall ejection fraction is estimated at 55%. 2. Left atrium is within normal limits at 4.0 cm. Right atrium and right ventricular chamber sizes are mild to moderately dilated. 3. Valvular structures have normal structure and motion. 4. Doppler interrogation reveals moderate tricuspid regurgitation. No other valvular insufficiency or stenosis. Pulmonary systolic pressure is estimated at ECHOCARDIOGRAM REPORT [id number] BRIAN GIRON 37 mmHg. 5. No evidence of pericardial effusion or left ventricular thrombus. TRANSINT:[id number] Voice Confirmation ID: [id number] DOCUMENT ID: [id number] MADELINE WALDRON MD at 1045 CC: [id number] DICTATION DATE: 01/10/19 1514 AUTO WASHER: 01/10/19 1751 ADM IN [place] [id number] [place] [address]
--- NOTE | 2019-01-11 11:00 | NUR ---
NO CHANGES, SEE FLOW SHEET FOR FURTHER DETAILS, WILL CONTINUE TO OBSERVE. MONITORS ON AND WORKING. VITALS STABLE.
--- NOTE | 2019-01-11 13:00 | NUR ---
PT SITTING UP IN BED, CLEANED OF LIQUID BM, NO BLOOD NOTED. NO SIGNS/SYMPTOMS OF PAIN OR DISCOMFORT NOTED. CALL LIGHT WITHIN REACH, WILL CONTINUE TO OBSERVE.
[2019-01-11 13:49] LABS: HEMATOCRIT 32.2 % (42.0-54.0); HEMOGLOBIN 10.5 g/dL (13.5-17.5)
--- NOTE | 2019-01-11 15:00 | NUR ---
NO CHANGES, SEE FLOW SHEET FOR FURTHER DETAILS. VITALS STABLE, WILL CONTINUE TO OBSERVE.
--- NOTE | 2019-01-11 19:00 | NUR ---
PT AOX4, NO C/O PAIN, VSS. RESPIRATIONS SHALLOW, LUNG SOUNDS DIMINISHED. SPO2 92 ON 6L O2 VIA NC. S1S2 HEARD, PERIPHERAL PULSES PRESENT. BOWEL SOUNDS ACTIVE IN ALL QUADRANTS, ABD SOFT, NON TENDER. MORALES CATH INTACT, MORALES CARE COMPLETE. PT REPOSITIONS SELF INDEPENDENTLY, PARTIAL LINEN CHANGE PROVIDED. PT DENIES NEEDS AT THIS TIME. GUARD AT BEDSIDE, ROOM VISIBLE FROM NURSES STATION. CPOC.
[2019-01-11 20:31] LABS: HEMATOCRIT 34.2 % (42.0-54.0); HEMOGLOBIN 11.2 g/dL (13.5-17.5)
--- NOTE | 2019-01-11 21:00 | NUR ---
HS MEDS GIVEN, FRESH WATER TO BEDSIDE. PT REPOSITIONED FOR COMFORT. DENIES PAIN, VSS. GUARD AT BEDSIDE, ROOM VISIBLE FROM NURSES STATION. CPOC.
--- NOTE | 2019-01-11 23:00 | NUR ---
REASSESSMENT COMPLETE, NO NEW CHANGES AT THIS TIME. PT REPOSITIONED WITH MINIMAL ASSISTANCE FOR COMFORT. COUGH/DB WITH GOOD EFFORT. VSS, NO S/S OF PAIN OR ACUTE DISTRESS. GUARD AT BEDSIDE, ROOM VISIBLE FROM NURSES STATION. CPOC.
[2019-01-12] VITALS (12 sets, daily range): BP systolic 104–152; BP diastolic 47–89
--- NOTE | 2019-01-12 01:00 | NUR ---
NO CHANGES AT THIS TIME. PT RESTING QUIETLY WITH NO S/S OF PAIN OR ACUTE DISTRESS. VSS. PT REPOSITIONED SELF INDEPENDENTLY. GUARD AT BEDSIDE, ROOM VISIBLE FROM NURSES STATION. CPOC.
--- NOTE | 2019-01-12 03:00 | NUR ---
REASSESSMENT COMPLETE, NO NEW CHANGES AT THIS TIME. VSS, NO COMPLAINTS OF PAIN, DENIES NEEDS. ROOM VISIBLE FROM NURSES STATION. CPOC.
--- NOTE | 2019-01-12 05:16 | NUR ---
BLOOD DRAWN FROM PICC LINE AND SENT TO LAB AT 0500. PICC LINE FLUSHED WITH PER PROTOCOL. PATIENT DENIES ANY NEEDS AT THIS TIME.
[2019-01-12 05:23] LABS: BASOPHILS 0.1 % (0-2); EOSINOPHILS 0 % (0-7); HEMATOCRIT 32.7 % (42.0-54.0); HEMOGLOBIN 10.9 g/dL (13.5-17.5); IMMATURE GRANULOCYTES 1.9 % (0-5); LYMPHOCYTES 10.4 % (15-50); MCH 31.5 pg (26.0-34.0); MCHC 33.3 g/dL (31.0-37.0); MCV 94.5 fL (80.0-100.0); MEAN PLATELET VOLUME 10.6 fL (7.4-10.4); MONOCYTES 8.2 % (2-11); NEUTROPHILS 79.4 % (40-80); RBC 3.46 10x6/uL (4.20-6.10); RDW 15.6 % (11.5-14.5); WBC 6.8 10x3/uL (4.8-10.8)
[2019-01-12 05:24] LABS: PLATELET COUNT 41 10x3/uL (130-400)
[2019-01-12 05:43] LABS: INR 1.38 (0.85-1.17); PROTIME 16.4 SECONDS (11.6-15.0)
[2019-01-12 05:53] LABS: ALKALINE PHOSPHATASE 68 U/L (46-116); ALT (SGPT) 59 U/L (10-68); BILIRUBIN - TOTAL 2.92 mg/dL (0.2-1.3); CALC OSMOLALITY 294 mosm/kg (275-300); CALCIUM 7.5 mg/dL (8.5-10.1); CARBON DIOXIDE 25.8 mmol/L (21.0-32.0); CHLORIDE - SERUM 112 mmol/L (98-107); GLUCOSE 108 mg/dL (74-106); MAGNESIUM - SERUM 2.2 mg/dL (1.8-2.4); PHOSPHOROUS 2.5 mg/dL (2.5-4.9); POTASSIUM - SERUM 3.7 mmol/L (3.5-5.1); PROTEIN - SERUM 5.3 g/dL (6.4-8.2); SODIUM 145 mmol/L (136-145); UREA NITROGEN 27 mg/dL (7-18); eGFR NON AFRICAN AMERICAN 83 mL/min (90-120)
[2019-01-12 09:02] LABS: HEMATOCRIT 32.6 % (42.0-54.0); HEMOGLOBIN 10.7 g/dL (13.5-17.5)
--- NOTE | 2019-01-12 09:43 | NUR ---
Nutrition follow-up: Pt extubated; diet now clear liquids and will advance today to full liquids if okay with GI Labs reviewed; NH3 elevated Loose stools 2/2 lactulose WT: 215# RDN following.
--- NOTE | 2019-01-12 13:51 | NUR ---
0700 AWAKE IN BED ASSESSMENT COMPLETE TRANSITIONS MANAGER RN REMAINS AT BEDSIDE NO DISTRESS NOTED
--- NOTE | 2019-01-12 13:52 | NUR ---
0900 DECREASED SANDOSTATIN GTTs BY HALF DOWN TO 5MCG/MIN INFUSION
--- NOTE | 2019-01-12 13:57 | NUR ---
1100 STOPPED SANDOSTATIN GTT LIQUID LIGHT BROWN BM VIA BEDPAN NOTED
--- NOTE | 2019-01-12 13:59 | NUR ---
1200 LARGE LIQUID BM NO SIGNS OF BLEED CLEAR LIQUID DIET SERVED
--- NOTE | 2019-01-12 14:01 | NUR ---
1300 PICC LINE DRESSING CHANGED USING STERILE TECHNIQUE
--- NOTE | 2019-01-12 14:03 | NUR ---
1315 PATIENT RIPPED OFF PICC LINE DRESSING SAYING IT BURNED CHANGED PICC LINE DRESSING AGAIN WRAPPED ARM WITH KERLEX TO DETER PATIENT STUART AT PICC
--- NOTE | 2019-01-12 14:10 | NUR ---
1400 DR JOY UPDATING PATIENTS SISTER AND ANSWERING HER QUESTIONS AT BEDSIDE
--- NOTE | 2019-01-12 16:30 | NUR ---
ARRIVED TO ROOM 1204 AT THIS TIME ACCOMPANIED VIA ICU STAFF AND MID TEACHER. NO C/O NOTED OR VOICED. CHECKED ON OFTEN. C/L IN REACH AT BEDSIDE.
--- NOTE | 2019-01-12 19:23 | NUR ---
BEDSIDE REPORT RECEIVED. PT IS ASLEEP, GUARD AT BEDSIDE. PT ON 8L O2 NC. LEFT UPPER ARM PICC LINE WITH PROTONIX AND NS AT 10. PT HAS NO S/S OF DISTRESS. NAME AND DATE PLACED ON BOARD. BEDLOW AND CALL LIGHT IN REACH. WILL CPOC
[2019-01-12 19:56] LABS: HEMATOCRIT 34.4 % (42.0-54.0); HEMOGLOBIN 11.5 g/dL (13.5-17.5)
--- NOTE | 2019-01-12 20:00 | NUR ---
LAB DRAWN FROM PICC LINE.
--- NOTE | 2019-01-12 20:39 | NUR ---
SPOKE WITH RESP REGARDING 8L O2 NC. RESP TURNED IT DOWN TO 6L
[2019-01-13] VITALS (15 sets, daily range): BP systolic 118–144; BP diastolic 59–90
--- NOTE | 2019-01-13 02:23 | NUR ---
PT HAD O2 OFF. VERBALIZED PT TO PLACE IT BACK ON. PT FOLLOWED COMMAND. PT IS AAO. NO S/S OF DISTRESS. 6L O2 NC. PT WILL CALL FOR ASSIST WHEN NEEDED. GUARD AT BEDSIDE. WILL CPOC
--- NOTE | 2019-01-13 03:21 | NUR ---
PT IS AAO, GUARD AT BEDSIDE. PROTONIX INFUSING AT 10, PT HAS NO S/S OF DISTRESS. BEDLOW AND CALL LIGHT IN REACH. ASSESSED LEFT ANKLE THAT HAS A CUFF. SKIN INTACT. WILL CPOC
--- NOTE | 2019-01-13 04:52 | NUR ---
PT HAD A VERY SMALL BM, DIARRHEA. CLEANED PT. PT DENIES ANY OTHER NEEDS. WILL CPOC
--- NOTE | 2019-01-13 06:27 | NUR ---
PT NEEDING TO HAVE BM. ASSISTED PT TO RESTROOM X1 ASSIST. THAN BACK TO BED. PT BECAME SOB, RESP GOT 82% ON 6L O2. PT NOW ON 10L OXYMIZER. CALLING DR LANDEROS TO UPDATE ON PT STATUS. SCD'S ON BILATERAL LOWER EXTREM. WILL CPOC
--- NOTE | 2019-01-13 06:32 | NUR ---
SPOKE WITH DR LANDEROS REGARDING SOB AND LOW O2. HE ORDERED. 2MG BUMEX IV ONE TIME. CHEST XRAY 1 VIEW. PROBNP ABG'S AND AN UPDRAFT. WILL PLACE ORDERS.
--- NOTE | 2019-01-13 06:38 | NUR ---
[facility] ORDER FOR [facility]R,OR UPDRAFT BOTH ARE BEING DONE THIS MORNING.
[2019-01-13 07:15] LABS: BASOPHILS 0.3 % (0-2); EOSINOPHILS 0.4 % (0-7); HEMOGLOBIN 11.8 g/dL (13.5-17.5); IMMATURE GRANULOCYTES 4.2 % (0-5); LYMPHOCYTES 9.9 % (15-50); MCH 31.8 pg (26.0-34.0); MCHC 33.7 g/dL (31.0-37.0); MCV 94.3 fL (80.0-100.0); MEAN PLATELET VOLUME 12.1 fL (7.4-10.4); MONOCYTES 5.8 % (2-11); NEUTROPHILS 79.4 % (40-80); PLATELET COUNT 53 10x3/uL (130-400); RBC 3.71 10x6/uL (4.20-6.10); RDW 16.1 % (11.5-14.5); WBC 11.1 10x3/uL (4.8-10.8)
[2019-01-13 07:25] LABS: INR 1.39 (0.85-1.17); PROTIME 16.5 SECONDS (11.6-15.0)
[2019-01-13 07:26] LABS: ALBUMIN 1.9 g/dL (3.4-5.0); ALKALINE PHOSPHATASE 75 U/L (46-116); ALT (SGPT) 47 U/L (10-68); BILIRUBIN - TOTAL 4.92 mg/dL (0.2-1.3); CALC OSMOLALITY 284 mosm/kg (275-300); CALCIUM 7.4 mg/dL (8.5-10.1); CARBON DIOXIDE 22.7 mmol/L (21.0-32.0); CHLORIDE - SERUM 108 mmol/L (98-107); GLUCOSE 87 mg/dL (74-106); MAGNESIUM - SERUM 2.1 mg/dL (1.8-2.4); PRO BNP 604 pg/mL (0-125); PROTEIN - SERUM 5.5 g/dL (6.4-8.2); SODIUM 142 mmol/L (136-145); UREA NITROGEN 21 mg/dL (7-18); eGFR NON AFRICAN AMERICAN 83 mL/min (90-120)
[2019-01-13 07:45] LABS: POTASSIUM - SERUM 3.1 mmol/L (3.5-5.1)
[2019-01-13 07:47] LABS: PHOSPHOROUS 1.5 mg/dL (2.5-4.9)
[2019-01-13 07:58] LABS: PLATELET ESTIMATE DECREASED
--- NOTE | 2019-01-13 09:30 | NUR ---
PT LYING IN BED C/O BEING HUNGRY ADVISED PT IS NPO DUE TO POSSIBLE TIPS PROCEDURE, PT REFUSED CHRONULAC LAST NIGHT, GAVE PT CHRONULAC WITH AM MEDS, ORDERS FOR PT TO BE TRANSFERRED TO ICU DUE TO HYPOXIC, CONTINUE WITH PLAN OF CARE
--- NOTE | 2019-01-13 10:00 | NUR ---
RT CAME OUT STATED PT IS STATING AT 69% AND NOT WEARING O2, WAS NOT TOLD IN REPORT PT IS ON O2, PER IMAGING TECHNOLOGIST PT VSS AND PT WAS AT 94% PT PLACED ON 15 LITERS AND TRANSFERRED TO ICU
--- NOTE | 2019-01-13 10:25 | NUR ---
PATIENT RECEIVED PER BED FROM [facility] 3 AWAKE AND ALERT SKIN WARM AND DRY. WITH SHORTNESS OF BREATH. OXYGEN AT 15 LITERS PER HIGH JACKI PULSE OX 95%. TRANSFERED SELF TO BED. MORALES CATH PATENT AND DRAINING CLEAR SHERON URINE. MONITOR SR. LEFT UPPER ARM PICC DRESSING DRY AND INTACT INFUSING WITH PROTONIX AT 8 MG HOUR AND NS AT 10 ML HOUR. HEAD OF BED ELEVATED [address] SCHERER HERE, DR. LANDEROS HERE. NOTIFIED OF PATIENT ARRIVAL. ORDERS FOR LASIX [address] SCHERER RECEIVED
--- NOTE | 2019-01-13 12:00 | NUR ---
CLEAR LIQUID DIET SERVED. TAKING PO FLUIDS WELL. NAPPING AT INTERVALS. SHORTNESS OF BREATH IMPROVED.
--- NOTE | 2019-01-13 14:00 | NUR ---
NAPPING AT INTERVALS NO DISTRESS. DRINKING CLEAR LIQUIDS.PICC LINE INTACT. MORALES PATENT. SCD ON LOWER LEGS.
--- NOTE | 2019-01-13 16:00 | NUR ---
LIQUID STOOL URBAN YELLOW TURNING SELF FROM SIDE TO SIDE WITH ENCOURAGEMENT
--- NOTE | 2019-01-13 17:06 | NUR ---
NUMBEROUS LIQUID URBAN BROWN STOOL. STATES EVERYTIME I COUGH OR MOVE IT COMES OUT. REMINDED TO LEAVE OXYGEN ON. PATIENT WILL TAKE IT OFF AND DESAT INTO LOW 80'S. CLEAR LIQUID TRAY SERVED
--- NOTE | 2019-01-13 18:01 | NUR ---
NAPPING AT INTERVALS OXYGEN AT 10 LITERS HIGH FLOW NC. GOOD RESPONSE TO LASIX. CLEAR LIQUIDS SERVED.
--- NOTE | 2019-01-13 22:00 | NUR ---
DR. SCHERER NOTIFIED OF PT REQUIRING BIPAP AND DESAT WHEN REMOVED FOR MEDS. NEW ORDER REC'D.
[2019-01-14] VITALS (23 sets, daily range): BP systolic 111–144; BP diastolic 50–94
[2019-01-14 05:24] LABS: BASOPHILS 0.2 % (0-2); EOSINOPHILS 0.4 % (0-7); HEMATOCRIT 35.1 % (42.0-54.0); HEMOGLOBIN 11.7 g/dL (13.5-17.5); IMMATURE GRANULOCYTES 1.4 % (0-5); MCH 31.2 pg (26.0-34.0); MCHC 33.3 g/dL (31.0-37.0); MCV 93.6 fL (80.0-100.0); MEAN PLATELET VOLUME 12.8 fL (7.4-10.4); MONOCYTES 3.6 % (2-11); NEUTROPHILS 88.4 % (40-80); RBC 3.75 10x6/uL (4.20-6.10); RDW 16.7 % (11.5-14.5); WBC 11.1 10x3/uL (4.8-10.8)
[2019-01-14 05:25] LABS: PLATELET COUNT 36 10x3/uL (130-400)
[2019-01-14 05:45] LABS: ALBUMIN 1.9 g/dL (3.4-5.0); ALKALINE PHOSPHATASE 90 U/L (46-116); ALT (SGPT) 47 U/L (10-68); BILIRUBIN - TOTAL 6.18 mg/dL (0.2-1.3); CALC OSMOLALITY 286 mosm/kg (275-300); CALCIUM 7.2 mg/dL (8.5-10.1); CARBON DIOXIDE 22.8 mmol/L (21.0-32.0); CHLORIDE - SERUM 108 mmol/L (98-107); CREATININE - SERUM 0.8 mg/dL (0.6-1.3); GLUCOSE 99 mg/dL (74-106); PHOSPHOROUS 1.7 mg/dL (2.5-4.9); PRO BNP 584 pg/mL (0-125); PROTEIN - SERUM 5.6 g/dL (6.4-8.2); SODIUM 143 mmol/L (136-145); UREA NITROGEN 18 mg/dL (7-18); eGFR NON AFRICAN AMERICAN > 90 mL/min (90-120)
[2019-01-14 06:18] LABS: APTT 28.8 SECONDS (22.8-39.4); INR 1.47 (0.85-1.17); PROTIME 17.2 SECONDS (11.6-15.0)
--- NOTE | 2019-01-14 09:49 | NUR ---
Nutrition follow-up: Pt tx to ICU from M3 On BIPAP due to worsening respiratory status Labs reviewed Diet: gastric soft with poor po intake at this time WT: 238# Will need nutrition support started if po intake remains poor due to breathing. RDN following.
--- NOTE | 2019-01-14 11:29 | NUR ---
0700 AM ASSESMENT IS COMPLSTS SEE FLOW SHEET FOR FINDINGS.. PT IS AWAKE FOLLOWS COMMANDS.. ON BIPAP O2 .. RT AT BEDSIDE WITH TX... ALF GAGINGERD AT BEDSIDE PT IS WITH LEFT ANKLE SHACKLE TO BED FRAME 0800 BEDPAN USED LARGE AMOUNT OF LIQUID URBAN STOOL.. 0830 COMPLETE BATH AND LINEN CHANGE DONE WITH MORALES CARE PER PROTOCOL 0900 FLORES HARKINS IN TO ASSES PICC LINE FOR PATENCY BNLUE LINE IS NOT PATENT .. FLUID INFUSING INTO THE RED PORT.. 1000 DRESSING CHANGE TO PICC LINE, PROTOCOL FOLLOWED.. PRN HUB PORTS CHANGED...PER PROTOCOL MEDS GIEVEN 1030 BEDPAN USED WITH RESULTS OF LIQUID URBAN STOOL 1100 BLOOD CULTURES DRAWN BY GWEN X1 FROM RED PORT OF PICC LINE.. 2ND CULTURE FROM PERIFERAL DRAW BY STUDENT SERVICES COORDINATOR.. 1130 DR SCHERER IN TO SEE PT.. BIPAP REMOVED BY HIM AT THIS TIME.. 15 LITER HI FLOW O2 ON SAT 90%
--- NOTE | 2019-01-14 16:34 | NUR ---
1230 WITHOUT CHANGES 1430 PT IS RESTING QUIETLY WITHOUT CHANGES.. 1500 TEMP IS NORMAL AT THIS TIME.. 1600 URINE CULTURE OBTAINED.. 1630 RT ATTEMPTING TO OBTAIN RESP CULTURE
--- NOTE | 2019-01-14 17:12 | NUR ---
1700 USED BEDPAN LIQUID STOOL CLEAR LIQUID DIET SERVED TO PT.. FEEDING SELF
--- NOTE | 2019-01-14 17:46 | NUR ---
1730 PT O2 SAT TO 88% ON HI FLOW CANNULA.. PT IS PLACED BACK ON BIPAP BY RT
[2019-01-15] VITALS (17 sets, daily range): BP systolic 104–136; BP diastolic 59–89
--- NOTE | 2019-01-15 07:57 | NUR ---
ASSESSMENT COMPLETE - UA OBTAINED - VSS - ON BIBAP - CPOC
--- NOTE | 2019-01-15 08:28 | NUR ---
GAVE BREAKFAST TRAY TO CINTHIA - ANNIEOC
[2019-01-15 08:30] LABS: APPEARANCE CLEAR (CLEAR); BILIRUBIN 2+ (NEGATIVE); COLOR DK YELLOW (YELLOW); GLUCOSE NEGATIVE (NEGATIVE); KETONE NEGATIVE (NEGATIVE); NITRITE NEGATIVE (NEGATIVE); PROTEIN TRACE mg/dL (NEGATIVE); SPECIFIC GRAVITY 1.015 (1.005-1.020); UROBILINOGEN NORMAL (NORMAL)
[2019-01-15 08:33] LABS: BACTERIA NONE SEEN /hpf (NONE SEEN); EPITHELIAL CELLS 0-5 /hpf (0-5); RED CELLS - URINE 0-5 /hpf (0-5); WHITE CELLS - URINE 0-5 /hpf (0-5)
[2019-01-15 09:07] LABS: BASOPHILS 0 % (0-2); EOSINOPHILS 0.9 % (0-7); HEMOGLOBIN 10.1 g/dL (13.5-17.5); IMMATURE GRANULOCYTES 0.7 % (0-5); LYMPHOCYTES 5.8 % (15-50); MCH 31.3 pg (26.0-34.0); MCHC 32.6 g/dL (31.0-37.0); MEAN PLATELET VOLUME 12.3 fL (7.4-10.4); MONOCYTES 3.6 % (2-11); RBC 3.23 10x6/uL (4.20-6.10); RDW 17.7 % (11.5-14.5); WBC 10.7 10x3/uL (4.8-10.8)
[2019-01-15 09:11] LABS: PLATELET COUNT 35 10x3/uL (130-400)
[2019-01-15 09:15] LABS: INR 1.56 (0.85-1.17)
[2019-01-15 09:20] LABS: ALBUMIN 1.5 g/dL (3.4-5.0); ALKALINE PHOSPHATASE 70 U/L (46-116); BILIRUBIN - TOTAL 5.91 mg/dL (0.2-1.3); CARBON DIOXIDE 23.6 mmol/L (21.0-32.0); CHLORIDE - SERUM 109 mmol/L (98-107); MAGNESIUM - SERUM 1.8 mg/dL (1.8-2.4); PROTEIN - SERUM 5.3 g/dL (6.4-8.2); SODIUM 143 mmol/L (136-145); UREA NITROGEN 19 mg/dL (7-18); eGFR NON AFRICAN AMERICAN 83 mL/min (90-120)
[2019-01-15 09:21] LABS: CALC OSMOLALITY 289 mosm/kg (275-300); GLUCOSE 159 mg/dL (74-106); POTASSIUM - SERUM 3.1 mmol/L (3.5-5.1)
[2019-01-15 09:22] LABS: ALT (SGPT) 26 U/L (10-68); CALCIUM 6.8 mg/dL (8.5-10.1)
--- NOTE | 2019-01-15 09:30 | NUR ---
RADIOLOGY TECHS AT BEDSIDE TO TRANSFER TO CT - R.T. AT BEDSIDE ASSESMENT TO CHANGE O2 DELIVERY FROM BIPAP TO N/C - O2 SAT DOWN TO 70'S PER POX - PLACED ON NON-REBREATHER AT 15 LITERS - O2 CONTINES TO DROP 70 TO 80'S - PATIENT PLACED BACK ON BIPAP - O2 SAT UP TO 95% PER POX - R.T. TO OBTAIN PORTABLE BIPAP FOR TRANSPORT TO CT. CPOC AND REPORT FINDINGS
[2019-01-15 09:43] LABS: PLATELET ESTIMATE DECREASED
--- NOTE | 2019-01-15 09:50 | NUR ---
CALLED DR. LANDEROS - INFORMED OF PLAETET COUNT 35; CALCIUM 6.8 AND CORRECTED CALCIUM - 8.8; ALUBIN 1.5 - VERBALIZED UNDERSTANDING - NO NEW ORDERS
--- NOTE | 2019-01-15 10:22 | NUR ---
DR. RICHARDSON AT BEDSIDE FOR ASSESMENT - ORDERED KUB
--- NOTE | 2019-01-15 11:17 | NUR ---
DR. SCHERER AT BEDSIDE - REVIEWED PLAN OF CARE - AWATITING ORDERS DR. LAMAS (IR) AT BEDSIDE - SPEAKING TO DR. RICHARDSON NOW - AWAITING ORDERS
--- NOTE | 2019-01-15 11:45 | NUR ---
DR. LANDEROS AT BEDSIDE FOR ASSESSMENT - CPOC
--- NOTE | 2019-01-15 12:30 | NUR ---
BILE COLORED STOOL SHOWED DR. RICHARDSON - NO NEW ORDERS
--- NOTE | 2019-01-15 14:04 | NUR ---
MEDICATIONS GIVEN - SEE MAR - VSS - CONTINOUS BIPAPA AT 70% CPOC
--- NOTE | 2019-01-15 14:30 | NUR ---
PLACED PT ON BEDPAN = LIQUID STOOLS - BATHED PT - CHANGED LINENS -AND BED CLOTHES - GAVE PT WATER WHILE STANDING READY TO REPLACE BIPAP AND MONITORING POX - O2 DROPPED DOWN TO 93% FORM 100% - REPLACED MASK - CPOC
--- NOTE | 2019-01-15 15:00 | NUR ---
ASSESSMENT COMPLETE - PT RESTING WITH EYES CLOSED - EASILY AWAKENED BY VERBAL STIMULI - VSS CPOC
--- NOTE | 2019-01-15 16:15 | NUR ---
PT REQUESTED WATER - STOOD BY BEDSIDE WITH MASK OVER PATIETN'S FACE - MONITORING POX - DROPPED DOWN TO 90% - REPLACED BIPAP MASK - O2 UP TO 98% AFTER ON BIPAP WITHIN ONE MINUTE - CPOC
--- NOTE | 2019-01-15 17:06 | NUR ---
ATTEMPTED TO PLACE PT ON 15 L/OXYMIZER - FOR PATIENT TO EAT DINNER - LESS THANK A MINUTE POX DOWN TO 88% - PLACE PATIENT BACK ON BIPAP 70% - POX UP TO 100% - R.T. TO NOTIFY DR. SCHERER AWAITING ORDERS
--- NOTE | 2019-01-15 17:09 | NUR ---
VAPOTHERM ORDERED THREE TIMES A DAY TO FOR 10 MINUTES 40L AT 100% - R.T. AWARE
--- NOTE | 2019-01-15 17:30 | NUR ---
R.T. PLACED PT ON VAPOTHERM 40L AT 80% POX >90% - PATIET AT 75% OF DINNER TRAY - ASKED FOR BOOST OR CHOCOLTE ENSURE - NOTIFIED DIETARY OF REQUEST - CPOC
--- NOTE | 2019-01-15 17:47 | NUR ---
PT ASKED TO BE PLACED BACK ON BIPAP - POX AT 96% - PLACED PT BACK ON BIPAP PER PT.'S REQEUST
--- NOTE | 2019-01-15 17:49 | NUR ---
PT O2 AT 98% ON VAPOTHERM - PT DECCLINIED TO BE PLACED ON BIPAP - PT RESTING WATCHING T.V. - PT HAS 15 MINUTES ON VAPOTHERM AND AGREED TO CONTINUE TRIAL -
--- NOTE | 2019-01-15 18:08 | NUR ---
PLACED PT ON BED CHEN - SMALLLIQUID STOOL - PLACED PT BACK ON BIPAP POX DOWN TO 88% - POX BACK UP TO 100%
--- NOTE | 2019-01-15 18:56 | NUR ---
INFORMED R.T. OF PREVIOUS VAPOTHERM TRIAL - CPOC
[2019-01-16] VITALS (22 sets, daily range): BP systolic 103–154; BP diastolic 39–87
[2019-01-16 04:00] LABS: BASOPHILS 0.1 % (0-2); EOSINOPHILS 0 % (0-7); HEMATOCRIT 31.5 % (42.0-54.0); HEMOGLOBIN 10.1 g/dL (13.5-17.5); IMMATURE GRANULOCYTES 0.6 % (0-5); LYMPHOCYTES 5.1 % (15-50); MCH 31.2 pg (26.0-34.0); MCHC 32.1 g/dL (31.0-37.0); MCV 97.2 fL (80.0-100.0); MEAN PLATELET VOLUME 12.8 fL (7.4-10.4); NEUTROPHILS 92.2 % (40-80); PLATELET COUNT 39 10x3/uL (130-400); RBC 3.24 10x6/uL (4.20-6.10); RDW 17.9 % (11.5-14.5); WBC 8.2 10x3/uL (4.8-10.8)
[2019-01-16 04:12] LABS: INR 1.5 (0.85-1.17); PROTIME 17.5 SECONDS (11.6-15.0)
[2019-01-16 04:25] LABS: % SATURATION 26 % (15-55); IRON 31 ug/dl (35-150); TOTAL IRON BIND CAPACITY 115 ug/dl (260-445); UNSAT IRON BIND CAPACITY 84 ug/dl (150-375)
[2019-01-16 04:29] LABS: ALBUMIN 1.5 g/dL (3.4-5.0); ALKALINE PHOSPHATASE 80 U/L (46-116); ALT (SGPT) 28 U/L (10-68); BILIRUBIN - TOTAL 6.15 mg/dL (0.2-1.3); CALC OSMOLALITY 288 mosm/kg (275-300); CALCIUM 7.6 mg/dL (8.5-10.1); CARBON DIOXIDE 23.5 mmol/L (21.0-32.0); CHLORIDE - SERUM 108 mmol/L (98-107); GLUCOSE 174 mg/dL (74-106); MAGNESIUM - SERUM 2.2 mg/dL (1.8-2.4); PRO BNP 180 pg/mL (0-125); PROTEIN - SERUM 5.6 g/dL (6.4-8.2); SODIUM 141 mmol/L (136-145); UREA NITROGEN 23 mg/dL (7-18); eGFR NON AFRICAN AMERICAN 83 mL/min (90-120)
[2019-01-16 04:31] LABS: PHOSPHOROUS 2.6 mg/dL (2.5-4.9); POTASSIUM - SERUM 4.1 mmol/L (3.5-5.1)
[2019-01-16 04:43] LABS: ERYTHROCYTE SEDIMENTATION RATE 21 mm/hr (0-20)
--- NOTE | 2019-01-16 07:10 | NUR ---
REPORT RECEIVED FROM WEED CONTROLLER AND CARE ASSUMED. PATIENT LAYING IN BED ON BACK HOB ELEVATED 35 DEGREES. EYES ARE CLOSED AND BREATHING EVENLY WITH BIPAP IN PLACE. VS ARE GOOD. O2 SST GUARD ATR BEDISE.
--- NOTE | 2019-01-16 08:00 | NUR ---
PATIENT SWITCHED TO VAPORIZER FOR EATING. O2 SATS REMAIN IN 90'S. PATIENT EATS QUICKLY AND REQUEST TO BE PUT BACK ON BIPAP. ENCOURAGED PATIENT TO GIVE VAPORIZER MORE TIME AND INFORMED OF HIGH O2 SATS BUT PATIENT REFUSES AND PLACED BACK ON BIPAP. WILL CONTINUE TO MONITOR.
--- NOTE | 2019-01-16 09:00 | NUR ---
PATIENT ASSESSMENT COMPLETED. PATIENT ON BEDPAN. HAD MODERATE AMOUNT OF LIQUID RUST/BROWN STOOL. WILL CONTINUE WITH PLAN OF CARE.
--- NOTE | 2019-01-16 11:45 | NUR ---
PATIENT SITTING UP IN BED WATCHING TV. VS ARE GOOD. ATTEMPTED TO PLACE PATIENT THERMOVENT TO EAT PATIENT DECLINED STATING THAT HE WAS NOT HUNGRY.
--- NOTE | 2019-01-16 15:36 | NUR ---
PATIENT LAYING ON BACK WITH HOB ELEVATED AT 15 DEGREES. EYES ARE CLOSED AND BREATHING EVENLY VIA BIPAP.REASSESMENT COMPLETED. WILL CONTINUE TO MONITOR.
--- NOTE | 2019-01-16 19:14 | NUR ---
REPORT RECEIVED, CARE ASSUMED. INITIAL ASSESSMENT COMPLETED, SEE FLOWSHEET. PT IS SITTING UP IN BED WATCHING TV, WEARING BIPAP. NO SIGNS OF ACUTE DISTRESS. WILL CONTINUE TO MONITOR.
--- NOTE | 2019-01-16 21:14 | NUR ---
PT IS RESTING IN BED WATCHING TV AT THIS TIME. NO SIGNS OF ACUTE DISTRESS. WILL CONTINUE TO MONITOR.
--- NOTE | 2019-01-16 23:11 | NUR ---
REASSESSMENT COMPLETED, SEE FLOWSHEET. PT IS RESTING IN BED WATCHING TV AT THIS TIME. NO SIGNS OF ACUTE DISTRESS. WILL CONTINUE TO MONITOR.
[2019-01-17] VITALS (25 sets, daily range): BP systolic 101–131; BP diastolic 57–82
--- NOTE | 2019-01-17 01:11 | NUR ---
PT IS RESTING IN BED WATCHING TV AT THIS TIME. NO ACUTE CHANGES NOTED. NO SIGNS OF ACUTE DISTRESS. WILL CONTINUE TO MONITOR.
--- NOTE | 2019-01-17 03:12 | NUR ---
REASSESSMENT COMPLETED, SEE FLOWSHEET. NO ACUTE CHANGES NOTED. PT IS RESTING IN BED WATCHING TV WITH HIS EYES CLOSED OCCASIONALLY. NO SIGNS OF ACUTE DISTRESS. WILL CONTINUE TO MONITOR.
[2019-01-17 04:29] LABS: BASOPHILS 0.1 % (0-2); EOSINOPHILS 0 % (0-7); IMMATURE GRANULOCYTES 0.5 % (0-5); MCH 31.4 pg (26.0-34.0); MCHC 32.3 g/dL (31.0-37.0); MCV 97.1 fL (80.0-100.0); MEAN PLATELET VOLUME 12.9 fL (7.4-10.4); NEUTROPHILS 92.4 % (40-80); RBC 2.04 10x6/uL (4.20-6.10); RDW 17.7 % (11.5-14.5)
[2019-01-17 04:37] LABS: WBC 13.9 10x3/uL (4.8-10.8)
[2019-01-17 04:38] LABS: HEMATOCRIT 19.8 % (42.0-54.0); HEMOGLOBIN 6.4 g/dL (13.5-17.5); PLATELET COUNT 61 10x3/uL (130-400)
[2019-01-17 04:41] LABS: ALBUMIN 1.5 g/dL (3.4-5.0); ALKALINE PHOSPHATASE 86 U/L (46-116); ALT (SGPT) 32 U/L (10-68); BILIRUBIN - TOTAL 3.63 mg/dL (0.2-1.3); CALC OSMOLALITY 287 mosm/kg (275-300); CALCIUM 7.7 mg/dL (8.5-10.1); CARBON DIOXIDE 24.6 mmol/L (21.0-32.0); CHLORIDE - SERUM 107 mmol/L (98-107); GLUCOSE 162 mg/dL (74-106); MAGNESIUM - SERUM 2.2 mg/dL (1.8-2.4); PHOSPHOROUS 2.1 mg/dL (2.5-4.9); POTASSIUM - SERUM 3.8 mmol/L (3.5-5.1); PROTEIN - SERUM 5.9 g/dL (6.4-8.2); SODIUM 139 mmol/L (136-145); UREA NITROGEN 30 mg/dL (7-18); eGFR NON AFRICAN AMERICAN 83 mL/min (90-120)
[2019-01-17 05:02] LABS: INR 1.45 (0.85-1.17)
--- NOTE | 2019-01-17 05:12 | NUR ---
PT IS RESTING IN BED AT THIS TIME WITH EYES CLOSED. NO SIGNS OF ACUTE DISTRESS. WILL CONTINUE TO MONITOR.
[2019-01-17 05:34] LABS: BASOPHILS 0 % (0-2); EOSINOPHILS 0 % (0-7); IMMATURE GRANULOCYTES 0.5 % (0-5); LYMPHOCYTES 3.7 % (15-50); MCH 31.3 pg (26.0-34.0); MCHC 32.4 g/dL (31.0-37.0); MCV 96.9 fL (80.0-100.0); MEAN PLATELET VOLUME 12.5 fL (7.4-10.4); MONOCYTES 2.4 % (2-11); NEUTROPHILS 93.4 % (40-80); PLATELET COUNT 70 10x3/uL (130-400); WBC 11.3 10x3/uL (4.8-10.8)
[2019-01-17 05:40] LABS: RBC 3.51 10x6/uL (4.20-6.10)
--- NOTE | 2019-01-17 09:08 | NUR ---
NUTRITION F/U PT TOLERATING REG GASTRIC SOFT DIET. WILL ADD STRAWBERRY ENSURE TO MEALS. RD FOLLOWING
--- NOTE | 2019-01-17 10:45 | NUR ---
0700 AM ASSESMENT COMPLETE SEE FLOW SHEET FOR FINDINGS.. PT IS AWAKE ON BIPAP O2 GAURD AT BEDSIDE .. 0800 REQUEST BEDPAN.. 0815 YELLOW LIQUID STOOL IN CHEN 0830 BREAKFAT SERVED.. VAPO THERM ON AT 40 LITERS.. FEEDING SELF.. 0930 COMPLETE BATH AND LINEN CHANGE DONE AT THIS TIME.. 1000 BACK ON BIPAP O2.. DR SANDY IN TO SEE PT..
--- NOTE | 2019-01-17 13:44 | NUR ---
1130 MEDS GIVEN AND DIET SERVED TO PT.. FEEDING SELF.. 1300 1005 DIET EATEN 1330 MEDS GIVEN AND PT USIED BEDPAN LIQUID STOOL URBAN YELLOW
--- NOTE | 2019-01-17 16:42 | NUR ---
1400 PLACED ON BIPAP O2 AFTER LUNCH.. 1500 NO CHANGES.. 1600 BM IN BEDPAN .. STOOL SAMPLE SENT TO LAB FOR WBC AND CDT PER ORDER.. 1640 O2 CHANGED TO [id number] FOR DINNER
--- NOTE | 2019-01-17 18:04 | NUR ---
1800 DIET EATEN REMAINS ON VAPOTHERM.. REQUEST BEDPAN , LIQUID STOOL IN CHEN...
--- NOTE | 2019-01-17 19:14 | NUR ---
REPORT RECEIVED, CARE ASSUMED. PT IS RESTING IN BED ON THE BIPAP AT THIS TIME. NO NEEDS VOICED. NO SIGNS OF ACUTE DISTRESS. WILL CONTINUE TO MONITOR.
--- NOTE | 2019-01-17 21:14 | NUR ---
PT IS RESTING IN BED AT THIS TIME. EVENING MEDS GIVEN, SEE MAR. NO SIGNS OF ACUTE DISTRESS. PT HAD A MODERATE AMOUNT OF LIQUID BM. WILL CONTINUE TO MONITOR.
--- NOTE | 2019-01-17 23:12 | NUR ---
REASSESSMENT COMPLETED, SEE FLOWSHEET. NO ACUTE CHANGES NOTED. NO NEEDS VOICED. NO SIGNS OF ACUTE DISTRESS. WILL CONITNUE TO MONITOR.
[2019-01-18] VITALS (24 sets, daily range): BP systolic 100–140; BP diastolic 59–688
--- NOTE | 2019-01-18 01:12 | NUR ---
PT IS RESTING IN BED WATCHING TV AT THIS TIME. PT WILL SLEEP OFF AND ON. NO NEEDS VOICED AT THIS TIME. NO SIGNS OF ACUTE DISTRESS. WILL CONTINUE TO MONITOR.
--- NOTE | 2019-01-18 03:11 | NUR ---
REASSESSMENT COMPLETED, SEE FLOWSHEET. PT IS RESTING IN BED WATCHING TV AT THIS TIME. NO NEEDS VOICED AT THIS TIME. NO SIGNS OF ACUTE DISTRESS. WILL CONTINUE TO MONITOR.
[2019-01-18 05:04] LABS: BASOPHILS 0 % (0-2); EOSINOPHILS 0 % (0-7); HEMATOCRIT 33.5 % (42.0-54.0); HEMOGLOBIN 10.8 g/dL (13.5-17.5); IMMATURE GRANULOCYTES 0.3 % (0-5); LYMPHOCYTES 3.1 % (15-50); MCH 31.3 pg (26.0-34.0); MCHC 32.2 g/dL (31.0-37.0); MCV 97.1 fL (80.0-100.0); MONOCYTES 3.3 % (2-11); NEUTROPHILS 93.3 % (40-80); PLATELET COUNT 61 10x3/uL (130-400); RBC 3.45 10x6/uL (4.20-6.10); RDW 18.3 % (11.5-14.5); WBC 9.6 10x3/uL (4.8-10.8)
[2019-01-18 05:10] LABS: INR 1.6 (0.85-1.17); PROTIME 18.5 SECONDS (11.6-15.0)
--- NOTE | 2019-01-18 05:11 | NUR ---
PT IS RESTING IN BED WITH EYES CLOSED AT THIS TIME. NO NEEDS VOICED. NO SIGNS OF ACUTE DISTRESS. WILL CONTINUE TO MONITOR.
[2019-01-18 05:23] LABS: ALBUMIN 1.7 g/dL (3.4-5.0); ALKALINE PHOSPHATASE 85 U/L (46-116); BILIRUBIN - TOTAL 3.33 mg/dL (0.2-1.3); CALC OSMOLALITY 288 mosm/kg (275-300); CALCIUM 7.9 mg/dL (8.5-10.1); CARBON DIOXIDE 27.2 mmol/L (21.0-32.0); CHLORIDE - SERUM 107 mmol/L (98-107); GLUCOSE 171 mg/dL (74-106); PHOSPHOROUS 2.2 mg/dL (2.5-4.9); POTASSIUM - SERUM 4.1 mmol/L (3.5-5.1); PROTEIN - SERUM 5.9 g/dL (6.4-8.2); SODIUM 140 mmol/L (136-145); UREA NITROGEN 30 mg/dL (7-18); eGFR NON AFRICAN AMERICAN 83 mL/min (90-120)
[2019-01-18 05:37] LABS: ALT (SGPT) 46 U/L (10-68)
[2019-01-18 13:16] LABS: ANA REFLEX - DIRECT Negative (Negative)
--- NOTE | 2019-01-18 19:04 | NUR ---
REPORT RECEIVED, CARE ASSUMED. PT ATE ONLY A FEW BITES OF HIS DINNER. INITIAL ASSESSMENT COMPLETED, SEE FLOWSHEET. NO CHANGES NOTED. NO SIGNS OF ACUTE DISTRESS. WILL CONTINUE TO MONITOR.
--- NOTE | 2019-01-18 19:49 | NUR ---
0700 AWAKE IN BED WEARING BPAP AT 70% O2 ENCOURAGED TO SLOW BREATHING DOWN
--- NOTE | 2019-01-18 19:50 | NUR ---
1100 WEARING VAPOR THERM TOLERATING WELL
--- NOTE | 2019-01-18 19:50 | NUR ---
0900 LIQUID BM ON BED CHEN
--- NOTE | 2019-01-18 19:51 | NUR ---
1300 ATE 90 % OF LUNCH TRAY VOICES NO C/O PAIN
--- NOTE | 2019-01-18 19:52 | NUR ---
1700 EATING DINNER INSTRUCTED NPO AFTER MIDNIGHT VERBALIZED UNDERSTANDING
--- NOTE | 2019-01-18 19:52 | NUR ---
1500 LIQUID BM ON BED CHEN GUARD REMAINS AT BEDSIDE
--- NOTE | 2019-01-18 21:04 | NUR ---
PT REQUESTED TO USE BEDPAN. SMALL AMOUNT OF SEMI LIQUID STOOL NOTED. NO OTHER NEEDS VOICED. NO SIGNS OF ACUTE DISTRESS. WILL CONTINUE TO MONITOR.
--- NOTE | 2019-01-18 23:01 | NUR ---
REASSESSMENT COMPLETED, SEE FLOWSHEET. NO ACUTE CHANGES NOTED. NO SIGNS OF ACUTE DISTRESS. PT HAS AN ANTIBIOTIC DUE AT 2300, CAN NOT LOCATE ON FLOOR. MANAGEMENT SUPERVISOR NOTIFIED. WILL ADMINISTER UPON RECEIPT. WILL CONTINUE TO MONITOR.
[2019-01-19] VITALS (21 sets, daily range): BP systolic 99–133; BP diastolic 43–79
--- NOTE | 2019-01-19 01:01 | NUR ---
PT IS RESTING IN BED WITH EYES CLOSED AT THIS TIME. NO ACUTE CHANGES NOTED. NO SIGNS OF ACUTE DISTRESS. WILL CONTINUE TO MONITOR.
--- NOTE | 2019-01-19 03:01 | NUR ---
REASSESSMENT COMPLETED, SEE FLOWSHEET. NO ACUTE CHANGES NOTED. NO SIGNS OF ACUTE DISTRESS. PT IS RESTING IN BED WITH EYES CLOSED AT THIS TIME.
--- NOTE | 2019-01-19 05:01 | NUR ---
PT IS RESTING IN BED AT THIS TIME. SURGICIAL BATH COMPLETED. NO SIGNS OF ACUTE DISTRESS. WILL CONTINUE TO MONITOR.
[2019-01-19 05:41] LABS: INR 1.73 (0.85-1.17); PROTIME 19.6 SECONDS (11.6-15.0)
[2019-01-19 07:42] LABS: CALC OSMOLALITY 286 mosm/kg (275-300); CALCIUM 7.5 mg/dL (8.5-10.1); CARBON DIOXIDE 25.4 mmol/L (21.0-32.0); CHLORIDE - SERUM 106 mmol/L (98-107); GLUCOSE 141 mg/dL (74-106); PHOSPHOROUS 2.4 mg/dL (2.5-4.9); POTASSIUM - SERUM 4.6 mmol/L (3.5-5.1); SODIUM 139 mmol/L (136-145); UREA NITROGEN 31 mg/dL (7-18); eGFR NON AFRICAN AMERICAN 83 mL/min (90-120)
[2019-01-19 09:01] LABS: BASOPHILS 0 % (0-2); EOSINOPHILS 0 % (0-7); HEMATOCRIT 33.3 % (42.0-54.0); HEMOGLOBIN 10.9 g/dL (13.5-17.5); IMMATURE GRANULOCYTES 0.3 % (0-5); MCH 31.6 pg (26.0-34.0); MCHC 32.7 g/dL (31.0-37.0); MCV 96.5 fL (80.0-100.0); MEAN PLATELET VOLUME 13.4 fL (7.4-10.4); NEUTROPHILS 90.7 % (40-80); PLATELET COUNT 69 10x3/uL (130-400); RBC 3.45 10x6/uL (4.20-6.10); RDW 18.7 % (11.5-14.5); WBC 8.8 10x3/uL (4.8-10.8)
--- NOTE | 2019-01-19 09:02 | NUR ---
NUTRITION F/U PT CURRENTLY NPO FOR PROCEDURE TODAY. WILL PROVIDE DIET WHEN RESUMED, MONITOR PO INTAKE. RD FOLLOWING
[2019-01-19 09:13] LABS: ALBUMIN 1.9 g/dL (3.4-5.0); BILIRUBIN - DIRECT 2.56 mg/dL (0.00-0.30); BILIRUBIN - INDIRECT 1.39 mg/dL (0.00-1.00); BILIRUBIN - TOTAL 3.95 mg/dL (0.2-1.3); PROTEIN - SERUM 5.9 g/dL (6.4-8.2)
--- NOTE | 2019-01-19 09:46 | NUR ---
0700 AWAKE ALERT WEARING BPAP REMINDED OF NPO STATUS VERBALIZED UNDERSTANDING
--- NOTE | 2019-01-19 09:47 | NUR ---
09 NOTIFIED BY SCHEDULING IN OR OF ANTICIPATED SURGERY TIME OF 2PM TODAY
--- NOTE | 2019-01-19 09:49 | NUR ---
1868 DR SANDY UPDATED FAMILY AT BEDSIDE
[2019-01-19 10:20] LABS: PLATELET ESTIMATE DECREASED
--- NOTE | 2019-01-19 12:37 | NUR ---
1100 DR WELCH ORDERED LUNCH TRAY NPO STATUS IS CANCELLED
--- NOTE | 2019-01-19 19:34 | NUR ---
INTRODUCED SELF TO PATIENT, PATIENT EATING DINNER TRAY WITH GUARD AT BEDSIDE. PATIENT AO X 4, RESP EVEN AND UNLABORED. NO S/SX OF DISTRESS AT THIS TIME.
--- NOTE | 2019-01-19 20:40 | NUR ---
PUT PATIENT ON BEDPAN AND BROUGHT ENSURE, GUARD AT BEDSIDE. PATIENT DIDN'T USE BEDPAN AND PLACED PATIENT BACK ON BIPAP. NO S/SX OF DISCOMFORT OR PAIN AT THIS TIME.
--- NOTE | 2019-01-19 21:50 | NUR ---
PATIENT RESTING QUIETLY WATCHING TV, BIPAP ON 40 W/O COMPLAINT AT THIS TIME. RESP EVEN AND UNLABORED ON BIPAP, PATIENT ROOM VISIBLE FROM NURSES STATION. WILL CONTINUE PLAN OF CARE.
--- NOTE | 2019-01-19 22:42 | NUR ---
PATIENT ON BIPAP, RT CHANGED TO MEDIUM MASK, PATIENT STATES IT FITS BETTER AND HAD NO OTHER NEEDS AT THIS TIME.
--- NOTE | 2019-01-19 23:23 | NUR ---
PATIENT RESTING QUIETLY WITH EYES CLOSED, GUARD STILL AT BEDSIDE. NO S/SX OF DISCOMFORT OR PAIN AT THIS TIME.
[2019-01-20] VITALS (24 sets, daily range): BP systolic 85–122; BP diastolic 53–81
--- NOTE | 2019-01-20 | NUR ---
PATIENT CALLED FOR BEDPAN, PATIENT HAD MODERATE BM DARK BROWN, LOOSE. NO S/SX OF DISTRESS OR PAIN NOTED. PATIENT RESTING QUIETLY, WATCHING TV WITH BIPAP ON. WILL CONTINUE PLAN OF CARE.
--- NOTE | 2019-01-20 00:05 | NUR ---
PATIENT MOVES INDEPEDENTLY, CHECKED BUTTOCKS HAD SOME REDNESS APPLIED CALM. LOTION.
--- NOTE | 2019-01-20 01:03 | NUR ---
PATIENT RESTING QUIETLY WITH EYES CLOSED, RESPIRATIONS EVEN AND UNLABORED. CONTINUES ON BIPAP W/O COMPLAINT. NO S/SX OF DISTRESS OR DISCOMFORT AT THIS TIME.
--- NOTE | 2019-01-20 03:36 | NUR ---
MOVED PATIENT FROM VAPORTHERM BACK TO BIPAP @ 40. WILL CONTINUE WITH PLAN OF CARE. NO S/SX OF DISTRESS OR DISCOMFORT AT THIS TIME.
--- NOTE | 2019-01-20 04:26 | NUR ---
PATIENT REQUESTED MEDICATION FOR GAS. PATIENT CONTINUES TO WANT TO SWITCH FROM BIPAP TO VAPOTHERM BACK AND FORTH. C/O THAT VAPORTHERM IS "TOO HOT" EDUCATED IT IS BODY TEMPERATURE. WILL CONTINUE PLAN OF CARE.
--- NOTE | 2019-01-20 04:41 | NUR ---
ASSISTED PATIENT TO TURN ONTO LEFT SIDE TO INCREASE PERFUSION, PATIENT REMAINS ON BIPAP W/O COMPLAINT. RESP EVEN AND UNLABORED, BED IN LOWEST POSITION, CALL LIGHT IN REACH. EMPTIED 1000ML OF CLEAR, DARK ORANGE/LIGHT RED URINE FROM MORALES. WILL CONTINUE PLAN OF CARE.
--- NOTE | 2019-01-20 06:21 | NUR ---
PATIENT WANTED TO SWITCH BACK TO VAPORTHERM AGAIN FROM BIPAP. PATIENT STATES THAT BIPAP HURTS HIS FACE. RESP EVEN AND UNLABORED. NO S/SX OF DISCOMFORT OR PAIN. WILL CONTINUE PLAN OF CARE.
[2019-01-20 06:44] LABS: ALBUMIN 2.1 g/dL (3.4-5.0); ALKALINE PHOSPHATASE 91 U/L (46-116); ALT (SGPT) 61 U/L (10-68); BILIRUBIN - TOTAL 3.17 mg/dL (0.2-1.3); CALC OSMOLALITY 293 mosm/kg (275-300); CALCIUM 7.6 mg/dL (8.5-10.1); CARBON DIOXIDE 23.6 mmol/L (21.0-32.0); CHLORIDE - SERUM 107 mmol/L (98-107); CREATININE - SERUM 0.9 mg/dL (0.6-1.3); POTASSIUM - SERUM 4.9 mmol/L (3.5-5.1); PROTEIN - SERUM 5.8 g/dL (6.4-8.2); SODIUM 141 mmol/L (136-145); UREA NITROGEN 33 mg/dL (7-18); eGFR NON AFRICAN AMERICAN > 90 mL/min (90-120)
[2019-01-20 06:50] LABS: GLUCOSE 214 mg/dL (74-106)
[2019-01-20 08:18] LABS: INR 1.86 (0.85-1.17); PROTIME 20.8 SECONDS (11.6-15.0)
--- NOTE | 2019-01-20 19:58 | NUR ---
0700 AWAKE ALERT ASSESSMENT COMPLETE
--- NOTE | 2019-01-20 19:59 | NUR ---
1100 REMAINS ON VAPORTHERM AT 65% TOLERATING WELL
--- NOTE | 2019-01-20 20:03 | NUR ---
1300 RESTING QUIETLY FAMILY NOT IN ROOM
--- NOTE | 2019-01-20 20:04 | NUR ---
1700 APPETITE GOOD VOICES NO COMPLAINTS
--- NOTE | 2019-01-20 20:04 | NUR ---
1500 AWAKE WATCHING TV NO DISTRESS NOTED
[2019-01-21] VITALS (24 sets, daily range): BP systolic 101–127; BP diastolic 59–84
[2019-01-21 04:56] LABS: ALBUMIN 2.2 g/dL (3.4-5.0); ALKALINE PHOSPHATASE 79 U/L (46-116); ALT (SGPT) 58 U/L (10-68); BILIRUBIN - TOTAL 3.04 mg/dL (0.2-1.3); CALC OSMOLALITY 281 mosm/kg (275-300); CALCIUM 7.7 mg/dL (8.5-10.1); CARBON DIOXIDE 25.4 mmol/L (21.0-32.0); CHLORIDE - SERUM 103 mmol/L (98-107); GLUCOSE 167 mg/dL (74-106); POTASSIUM - SERUM 5.1 mmol/L (3.5-5.1); PROTEIN - SERUM 5.8 g/dL (6.4-8.2); SODIUM 135 mmol/L (136-145); UREA NITROGEN 34 mg/dL (7-18); eGFR NON AFRICAN AMERICAN 83 mL/min (90-120)
[2019-01-21 05:17] LABS: INR 1.81 (0.85-1.17); PROTIME 20.3 SECONDS (11.6-15.0)
--- NOTE | 2019-01-21 07:00 | NUR ---
REC'D REPORT AND RESUMED CARE, AAO, VSS, DENIES PAIN, ASSESSMENT COMPLETE PER FLOWSHEET, VAPOTHERM AT 65% IN USE, SAT 96%, CALL LIGHT IN REACH, GAURD AT BEDSIDE, LEFT ANKLE CUFFED TO BED, DENIES ANY NEEDS AT THIS TIME
--- NOTE | 2019-01-21 07:40 | NUR ---
BREAKFAST TRAY TO BEDSIDE, INDEPENDENT WITH SET UP AND EATING
--- NOTE | 2019-01-21 10:05 | NUR ---
MORNING MEDS GIVEN PER JAN FLOWSHEET
--- NOTE | 2019-01-21 10:21 | NUR ---
NUTRITION F/U PT REPORTS GOOD PO INTAKE, APPETITE. RECENT BM PER PT REPORT. WILL CONTINUE TO PROVIDE DIET, HONOR FOOD PREFERENCES. RD FOLLOWING
--- NOTE | 2019-01-21 11:00 | NUR ---
BATH AND LINEN CHANGE COMPLETED WITHOUT DIFFICUTY, TOLERATE WITH MINIMAL DYSPNEA, O2 SAT 92, IS AT BEDSIDE, INHALED TO 550 MMHG, NO OTHER ACUTE CHANGE FROM PREVIOUS ASSESSMENT
--- NOTE | 2019-01-21 12:15 | NUR ---
LUNCH TRAY TO BEDSIDE, INDEPENDENT WITH SET UP AND EATING
--- NOTE | 2019-01-21 13:35 | NUR ---
CALLED TO ROOM BEDPAN PLACE, LARGE SOFT MUCOUS LIKE BOWEL MOVEMENT TO BEDPAN, SKIN CAR AND PARTIAL LINEN CHANGED
--- NOTE | 2019-01-21 15:00 | NUR ---
SLEEPING WITH NO SIGNS OF DISTRESS, VSS, DENIES PAIN, CALM AND COOPERATIVE, AROUSABLE TO VERBAL STIMULI, O2 CHANGE TO 9L HF NC, SAT 96%, NO OTHER CHANGE FROM PREVIOUS ASSESSMENT
[2019-01-22] VITALS (23 sets, daily range): BP systolic 98–135; BP diastolic 63–88
[2019-01-22 05:37] LABS: BASOPHILS 0.1 % (0-2); EOSINOPHILS 0 % (0-7); HEMATOCRIT 35.2 % (42.0-54.0); HEMOGLOBIN 11.6 g/dL (13.5-17.5); IMMATURE GRANULOCYTES 1.9 % (0-5); LYMPHOCYTES 4.8 % (15-50); MCV 97.2 fL (80.0-100.0); MEAN PLATELET VOLUME 12.6 fL (7.4-10.4); MONOCYTES 4.7 % (2-11); NEUTROPHILS 88.5 % (40-80); PLATELET COUNT 70 10x3/uL (130-400); RBC 3.62 10x6/uL (4.20-6.10); RDW 19.8 % (11.5-14.5)
[2019-01-22 05:48] LABS: INR 1.77 (0.85-1.17)
[2019-01-22 05:59] LABS: APTT 26.1 SECONDS (22.8-39.4)
[2019-01-22 06:41] LABS: ALBUMIN 2.2 g/dL (3.4-5.0); ALKALINE PHOSPHATASE 90 U/L (46-116); BILIRUBIN - TOTAL 3.21 mg/dL (0.2-1.3); CALC OSMOLALITY 279 mosm/kg (275-300); CALCIUM 7.8 mg/dL (8.5-10.1); CHLORIDE - SERUM 103 mmol/L (98-107); CREATININE - SERUM 0.9 mg/dL (0.6-1.3); GLUCOSE 170 mg/dL (74-106); POTASSIUM - SERUM 5.4 mmol/L (3.5-5.1); PROTEIN - SERUM 5.7 g/dL (6.4-8.2); SODIUM 134 mmol/L (136-145); UREA NITROGEN 34 mg/dL (7-18); eGFR NON AFRICAN AMERICAN > 90 mL/min (90-120)
[2019-01-22 06:43] LABS: ALT (SGPT) 79 U/L (10-68)
--- NOTE | 2019-01-22 07:36 | NUR ---
UP IN BED AWAKE AT THIS TIME WATCHING TV. NO ACUTE DISTRESS NOTED. WILL CONTINUE PLAN OF CARE.
--- NOTE | 2019-01-22 09:35 | NUR ---
CONTINENT BOWEL MOVEMENT NOTED AT THIS TIME VIA BEDPAN, LIQUID DARK BROWN. JUAN DANIEL CARE AND MORALES CARE PROVIDED. NO ACUTE DISTRESS NOTED. CALL LIGHT IN REACH. WILL CONTINUE PLAN OF CARE.
--- NOTE | 2019-01-22 11:20 | NUR ---
UP IN BEDSIDE CHAIR AT THIS TIME WITH ASSIST FROM PHYSICAL THERAPY. NO ACUTE DISTRESS NOTED. NO SHORTNESS OF BREATH. OXYGEN SATRUATION 95% ON 9L O2. WILL CONTINUE PLAN OF CARE.
--- NOTE | 2019-01-22 15:03 | NUR ---
BACK TO BED AT THIS TIME WITH ASSIST FROM PHYSICAL THERAPY AFTER TOTAL LINEN CHANGE PROVIDED. NO ACUTE DISTRESS NOTED. WILL CONTINUE PLAN OF CARE.
--- NOTE | 2019-01-22 17:37 | NUR ---
UP IN BED EATING SUPPER AT THIS TIME. NO ACUTE DISTRESS NOTED. WILL CONTINUE PLAN OF CARE.
--- NOTE | 2019-01-22 20:27 | NUR ---
INITIAL ASSESSMENT COMPLETED - PT A/O X4. HR 74 SR, RR 19, SPO2 98%, BP 113/77. PT DENIES ANY PAIN OR DISCMOFRT AT THIS TIME. NS INFUSING INTO L UA PICC THAT IS PATENT AT 10 ML/HR, KVO. MORALES DRAINING CLEAR SHERON URINE, OUTPUT NOTED AT 200 ML. SCDS ON. O2 ON AT 5L VIA NC, PER JULIENNE, RT. NO OTHER NEEDS NOTED AT THIS TIME. CL IN REACH, SR UP X2, BED IN LOWEST POSITION.
--- NOTE | 2019-01-22 22:18 | NUR ---
PT RESTING IN BED QUIETLY WITH EYES CLOSED. AROUSES EASILY TO NOISE. DENIES BATHROOM NEEDS AT THIS TIME. NO PAIN OR DISCOMFORT NOTED. WCTM AND FOLLOW POC.
[2019-01-23] VITALS (19 sets, daily range): BP systolic 102–122; BP diastolic 67–87
--- NOTE | 2019-01-23 00:29 | NUR ---
IN PT ROOM TO GIVE SCHEDULED MEDS. PT RESTING QUIETLY WITH EYES CLOSED, RR EVEN AND UL, NO S/S OF DISTRESS. VSS. AROUSES EASILY TO NOISE. NO C/O PAIN OR DISCOMFORT. DENIES BATHROOM NEEDS AT THIS TIME. WCTM AND FOLLOW POC. CL IN REACH, SR UP X2, BED IN LOWEST POSITION, GUARD AT BEDSIDE.
--- NOTE | 2019-01-23 02:45 | NUR ---
TO PT ROOM VIA BLOOD DRAW. PT RESING IN BED WITH EYES CLOSED. RR EVEN AND UL, NO S/S OF DISTRESS. VSS. AROUSES EASILY TO NOISE. BLOOD DRAWING VERY SLOWLY, FLUSHED L UA PICC PER PROTOCOL. NS INFUSING AT 15 ML/HR, KVO. NO OTHER NEEDS NOTED AT THIS TIME. CL IN REACH, SR UP X2, BED IN LOWEST POSITION.
[2019-01-23 04:33] LABS: ALBUMIN 2.1 g/dL (3.4-5.0); ALKALINE PHOSPHATASE 94 U/L (46-116); ALT (SGPT) 82 U/L (10-68); BILIRUBIN - TOTAL 3.43 mg/dL (0.2-1.3); CALC OSMOLALITY 280 mosm/kg (275-300); CALCIUM 7.7 mg/dL (8.5-10.1); CHLORIDE - SERUM 102 mmol/L (98-107); CREATININE - SERUM 0.8 mg/dL (0.6-1.3); GLUCOSE 207 mg/dL (74-106); PROTEIN - SERUM 5.7 g/dL (6.4-8.2); SODIUM 133 mmol/L (136-145); UREA NITROGEN 38 mg/dL (7-18); eGFR NON AFRICAN AMERICAN > 90 mL/min (90-120)
[2019-01-23 04:39] LABS: POTASSIUM - SERUM 4.3 mmol/L (3.5-5.1)
--- NOTE | 2019-01-23 05:00 | NUR ---
[facility] REVIEWED, PT JUST HAD LARGE BM OF TARRY STOOL. PT STATES HE FEELS MUCH BETTER. CLEANED PT AND LINEN CHANGE DONE. BUTT PASTE APPLIED. NO OTHER NEEDS AT THIS TIME. CL IN REACH, SR UP X2, BED IN LOWEST POSITION, GUARD AT BEDSIDE.
--- NOTE | 2019-01-23 08:30 | NUR ---
UP IN BED WATCHING TV AT THIS TIME. NO ACUTE DISTRESS NOTED. CALL LIGHT IN REACH. WILL CONTINUE PLAN OF CARE.
--- NOTE | 2019-01-23 10:00 | NUR ---
UP IN CHAIR BESIDE BED AT THIS TIME WITH ASSIST FROM PHYSICAL THERAPY. NO ACUTE DISTRESS NOTED. WILL CONTINUE PLAN OF CARE.
--- NOTE | 2019-01-23 10:28 | NUR ---
PER MANUEL DUMONT TO TRANSFER TO FLOOR.
--- NOTE | 2019-01-23 12:07 | NUR ---
UP IN CHAIR EATING LUNCH AND VISITING WITH FAMILY. NO ACUTE DISTRESS NOTED. WILL CONTINUE PLAN OF CARE.
--- NOTE | 2019-01-23 14:58 | NUR ---
UP IN BED AT THIS TIME. LINEN CHANGE PROVIDED. NO ACUTE DISTRESS NOTED. WILL CONTINUE PLAN OF CARE.
--- NOTE | 2019-01-23 15:55 | NUR ---
PER DR LANDEROS, OKAY TO TRANSFER TO FLOOR.
--- NOTE | 2019-01-23 17:38 | NUR ---
UP IN BED WATCHING TV AT THIS TIME. NO ACUTE DISTRESS NOTED. CALL LIGHT IN REACH. WILL CONTINUE PLAN OF CARE.
--- NOTE | 2019-01-23 19:00 | NUR ---
Shift assessment complete. Pt is lying in bed with guard at bedside. He is in good spirits and is A&O x4 with no complaints of pain or discomfort. PERRLA, 3 mm brisk reaction to light. Refreshments brought to bedside. S1S2 audible, HR 77 NSR showing on monitor. RR even and unlabored, NC on @ 3 L/min. Clear lung sounds heard throughout upper and lower lobes, diminished at the bases, O2 sat 95%. L upper arm PICC saline loc'd, flushed with 10 cc NS, swab capped. ABD distended and firm, no tenderness noted, BS active x4. Cerda cath intact draining rica urine. Radial and pedal pulses palp. Handcuff noted on L ankle. SCDs on and functioning. Call light in reach, bed in lowest position. He denies any further needs. Will cont with POC.
--- NOTE | 2019-01-23 21:00 | NUR ---
PO meds taken without difficulty. Fresh water brought to bedside. Call light in reach, no further needs. VSS. Will cont with POC.
--- NOTE | 2019-01-23 23:00 | NUR ---
Pt states that he is having ABD pain. ABD is distended and firm. Admin PRN Mylicon. Will cont to reassess ABD pain.
--- NOTE | 2019-01-24 01:00 | NUR ---
Pt states that his ABD is gone. He is resting peacefully, guard at bedside. VSS. No signs of acute distress noted.
--- NOTE | 2019-01-24 02:30 | NUR ---
Pt complains of gas pain. PRN Mylicon admin. Refreshments brought to bedside. VSS. Will cont with POC.
[2019-01-24 03:00] VITALS: BP 118/74
--- NOTE | 2019-01-24 03:00 | NUR ---
Pt resting peacefully with no signs of acute distress noted. VSS. Call light in reach, guard at bedside.
[2019-01-24 04:43] LABS: ALBUMIN 2.2 g/dL (3.4-5.0); ALKALINE PHOSPHATASE 110 U/L (46-116); BILIRUBIN - TOTAL 3.72 mg/dL (0.2-1.3); CALC OSMOLALITY 284 mosm/kg (275-300); CALCIUM 7.7 mg/dL (8.5-10.1); CARBON DIOXIDE 26.2 mmol/L (21.0-32.0); CHLORIDE - SERUM 100 mmol/L (98-107); GLUCOSE 198 mg/dL (74-106); PROTEIN - SERUM 5.9 g/dL (6.4-8.2); SODIUM 134 mmol/L (136-145); UREA NITROGEN 44 mg/dL (7-18); eGFR NON AFRICAN AMERICAN 83 mL/min (90-120)
[2019-01-24 04:49] LABS: ALT (SGPT) 116 U/L (10-68); POTASSIUM - SERUM 5.5 mmol/L (3.5-5.1)
--- NOTE | 2019-01-24 05:00 | NUR ---
Approx 100 mL black, tarry stool noted. Partial linen change provided. Pt tolerated well. VSS. Call light in reach, bed in lowest position. Will cont with POC.
[2019-01-24 07:00] VITALS: BP 117/68
[2019-01-24 08:00] VITALS: BP 124/70
--- NOTE | 2019-01-24 10:01 | NUR ---
Nutrition follow-up: Diet: Regular PO intake ~50% of meals; pt with distended, firm abdomen at this time +BM Wt: 231# Labs reviewed Out to floor today per physicians order RDN following.
--- NOTE | 2019-01-24 11:38 | NUR ---
PATIENT ARRIVED VIA WHEELCHAIR WITH PORTABLE O2. REQUESTING A GLASS OF ICE WATER. ASSISSTED TO THE CHAIR IN THE ROOM. BED IN LOW POSITION AND CALL LIGHT IS IN REACH. PATIENT DENIES ANY NEEDS AT THIS TIME.
--- NOTE | 2019-01-24 12:14 | NUR ---
0700 REPORT RECIEVED AND CARE ASSUMED OF PT.. SEE ASSESMENT FOR FINDINGS.. PT IS AWQKE AND WITHOUT C/O AT THIS TIME.. DARI IS AT THE BEDSIDE PT WITH ANKLE SHACKLE TO THE BED.. 0800 BREAKFAST IS SERVED AND PT IS FEEDING SELF.. 0900 ECHO AT BEDSIDE.. 1000 SISTER CALLED AND UPDATE GIVEN.. 1100 PHYSICAL THERAPY HERE AND PT ASSISTED TO WHEELCHAIR.. REPORT IS CALLED TO THE FLOOR ROOM 1202 1130 TRANSPORTED VIA WHEELCHAIR... PT TOLERATED WELL..
[2019-01-24 13:00] VITALS: BP 117/70
[2019-01-24 15:57] VITALS: BP 132/73
--- NOTE | 2019-01-24 19:48 | NUR ---
PATIENT RESTING IN BE WITH EYES CLOSED AND GUARD AT BEDSIDE. NO S/S OF DISTRESS. BED IN LOWEST POSITION AND CALL LIGHT WITHIN REACH. WILL CONTINUE TO MONITOR.
[2019-01-24 20:00] VITALS: BP 106/63
[2019-01-25] VITALS: BP 104/58
[2019-01-25 04:30] VITALS: BP 106/62
[2019-01-25 07:29] LABS: BASOPHILS 0.1 % (0-2); EOSINOPHILS 0 % (0-7); HEMATOCRIT 34.8 % (42.0-54.0); HEMOGLOBIN 11.5 g/dL (13.5-17.5); IMMATURE GRANULOCYTES 4.4 % (0-5); LYMPHOCYTES 4.6 % (15-50); MCH 32.2 pg (26.0-34.0); MCV 97.5 fL (80.0-100.0); MEAN PLATELET VOLUME 12.5 fL (7.4-10.4); MONOCYTES 5.6 % (2-11); NEUTROPHILS 85.3 % (40-80); PLATELET COUNT 61 10x3/uL (130-400); RBC 3.57 10x6/uL (4.20-6.10); RDW 21.1 % (11.5-14.5); WBC 15.2 10x3/uL (4.8-10.8)
[2019-01-25 07:32] LABS: INR 1.71 (0.85-1.17); PROTIME 19.5 SECONDS (11.6-15.0)
[2019-01-25 07:48] LABS: ALKALINE PHOSPHATASE 90 U/L (46-116); ALT (SGPT) 122 U/L (10-68); BILIRUBIN - TOTAL 4.62 mg/dL (0.2-1.3); CALC OSMOLALITY 285 mosm/kg (275-300); CALCIUM 7.5 mg/dL (8.5-10.1); CARBON DIOXIDE 23.7 mmol/L (21.0-32.0); CHLORIDE - SERUM 101 mmol/L (98-107); CREATININE - SERUM 0.9 mg/dL (0.6-1.3); GLUCOSE 165 mg/dL (74-106); MAGNESIUM - SERUM 2.3 mg/dL (1.8-2.4); PROTEIN - SERUM 5.6 g/dL (6.4-8.2); SODIUM 135 mmol/L (136-145); UREA NITROGEN 45 mg/dL (7-18); eGFR NON AFRICAN AMERICAN > 90 mL/min (90-120)
[2019-01-25 09:01] VITALS: BP 122/71
[2019-01-25 09:04] LABS: PLATELET ESTIMATE DECREASED
[2019-01-25 09:07] LABS: ANISOCYTOSIS OCC; ROULEAUX OCC
[2019-01-25 12:08] VITALS: BP 117/69
[2019-01-25] MEDS ORDERED: ALDACTONE25 MG PO (14:21)
[2019-01-25] MEDS ORDERED: XIFAXAN550 MG PO (14:21)
[2019-01-25] MEDS ORDERED: IPRAT-ALBUT 0.5-3 ML UPD (14:21)
[2019-01-25] MEDS ORDERED: LASIX40 MG PO (14:22)
[2019-01-25] MEDS ORDERED: CHRONULAC30 ML PO (14:22)
[2019-01-25 15:26] VITALS: BP 127/71
--- NOTE | 2019-01-25 19:40 | NUR ---
PATIENT RESTING IN BED WITH 2 GUARDS AT BEDSIDE. PATIENT DENIES NEEDS AT THIS TIME. BED IN LOWEST POSITION AND CALL LIGHT WITHIN REACH. ENCOURAGED THE PATIENT TO CALL IF HE HAS NEEDS. WILL CONTINUE TO MONITOR.
--- NOTE | 2019-01-25 19:59 | NUR ---
CALLED [facility] FOR SQUILGEER
--- NOTE | 2019-01-25 20:15 | NUR ---
CONFIMED WITH DR. LANDEROS THAT PATIENT IS TO KEEP HIS MORALES AND PICC ON DISCHARGE.
--- NOTE | 2019-01-25 20:53 | NUR ---
PATIENT D/C'D VIA [email or web address].
--- NOTE | 2019-01-26 10:08 | MORECARE ---
CASE MANAGEMENT DISCHARGE SUMMARY PATIENT: BRIAN GIRON UNIT: [id number] ADM DATE: 01/05/19 AGE: 53 : 65 SEX: M ROOM/BED: D.1202 AUTHOR: REESE HAYWARD PHYSICIAN: REFERRING PHYSICIAN: JAE FLORES DO DATE OF SERVICE: 01/26/19 Discharge Plan Patient Name: BRIAN GIRON Facility: [facility]:[place] : 1965 Planned Disposition: Court\Law Enforcement Anticipated Discharge Date: Discharge Date: 01/25/2019 Expected LOS: Initial Reviewer: [email or web address] Initial Review Date: 01/05/2019 Generated: 01/26/19 11:08 am Comments DCP- Discharge Planning Updated by [email or web address]: Deana Barfield on 01/06/19 3:[address] Patient Name: BRIAN GIRON Admission Status: ER Accout number: [id number] Admission Date: 01-05-2019 : 1965 Admission Diagnosis: Attending: JAE FLORES Current LOS: 1 Anticipated DC Date: Planned Disposition: Court\Law Enforcement Primary Insurance: MEDICAID CARE HOME PENDING Discharge Planning Comments: PATIENT IS CURRENTLY ON VENT / SEDATED. HE IS PRISONER AT [facility] AND WILL RETURN UPON DISCHARGE. GUARD IN ROOM WITH PATIENT. CM WILL CONTINUE TO FOLLOW AND ASSIST NEEDED. Management Assistant: Deana Barfield Last DP export: 01/06/19 3:10 pm Patient Name: BRIAN GIRON Page [phone] at 1008 All edits/amendments must be made on the electronic document DICTATION DATE: 01/26/19 1008 ROTARY FURNACE OPERATOR: PERLA 01/26/19 1008 RPT#: [id number] DC DATE:01/25/19 STATUS: DIS IN [facility] [address] [place] [address] END OF REPORT
== END 2019-01-25 21:00 | DRG 368 ==
LOC: EDBD 03:06 → D.ER 03:06 → D.EDHOLD 04:37 → D.ICU 04:37 → D.M2 04:37 → D.ICU 01-06 04:14 → D.M3 01-12 16:43 → D.ICU 01-13 10:39 → D.M3 01-24 11:56
PROVIDERS: Family Medicine; General Practice; Internal Medicine Gastroenterology; Internal Medicine Hematology & Oncology; Internal Medicine Nephrology; Internal Medicine Pulmonary Disease; ADMIT Family Medicine
PROC: 05HY33Z Insertion of Infusion Device into Upper Vein, Percutaneous Approach (ICD-10-PCS; 2019-01-06)
PROC: 5A1945Z Respiratory Ventilation, 24-96 Consecutive Hours (ICD-10-PCS; 2019-01-06)
PROC: 0BH17EZ Insertion of Endotracheal Airway into Trachea, Via Natural or Artificial Opening (ICD-10-PCS; 2019-01-06)
PROC: 06L38CZ Occlusion of Esophageal Vein with Extraluminal Device, Via Natural or Artificial Opening Endoscopic (ICD-10-PCS; principal; 2019-01-06 05:34)
PROC: 5A09357 Assistance with Respiratory Ventilation, Less than 24 Consecutive Hours, Continuous Positive Airway Pressure (ICD-10-PCS; 2019-01-13)
DX: I85.11 Secondary esophageal varices with bleeding (principal); J69.0 Pneumonitis due to inhalation of food and vomit; K72.00 Acute and subacute hepatic failure without coma; G92 Toxic encephalopathy; J96.01 Acute respiratory failure with hypoxia; J15.5 Pneumonia due to Escherichia coli; J15.211 Pneumonia due to Methicillin susceptible Staphylococcus aureus; D62 Acute posthemorrhagic anemia; E87.0 Hyperosmolality and hypernatremia; D69.6 Thrombocytopenia, unspecified; I10 Essential (primary) hypertension; R19.5 Other fecal abnormalities; R79.89 Other specified abnormal findings of blood chemistry; K70.30 Alcoholic cirrhosis of liver without ascites; D50.9 Iron deficiency anemia, unspecified; B19.20 Unspecified viral hepatitis C without hepatic coma

== ENCOUNTER 2019-01-27 15:23 | Inpatient (IN) | payer MEDICAID ==
[~2019-01-27] VITALS: Ht 180.3 cm; Wt 111.2 kg
--- NOTE | ~2019-01-27 | HEMODYNAMI ---
PATIENT:BRIAN GIRON MEDICAL RECORD: [id number] : 65 LOCATION:D.MS [facility].2215 ADMISSION DATE: 01/27/19 Generatedon:02/07/201919:37 Patient name: BRIAN GIRON Patient #: [id number] SSN: : 1965 Date of study: 02/07/2019 Page: Of Hemodynamic Procedure Report Patient Data Patient Demographics Procedure consent was obtained First Name: BRIAN Gender: Male Last Name: MACK : 1965 Patient #: [id number] Age: 53 year(s) Race: Unknown Additional ID: [id number] Contact details [address]: [address] [place] [address] State: [place] City: [place] Zip code: [address] Admission Admission Data Admission Date: 01/27/2019 Admission Time: 19:06 Room #: D.2215 Procedure Procedure Types Cath Procedure Peripheral Cath Diagnostic Procedure Miscellaneous Procedure Description Procedure Date Procedure Date: 02/07/2019 Procedure Start Time: 16:28 Procedure Staff Name Function Patricio Vick MD Performing Physician Nasir Lyle RT Monitor Vashti Cardenas Scrub Awa Godwin RN Nurse Adal Emerson [employer] Additional personnel Procedure Data Cath Procedure Fluoroscopy Diagnostic fluoroscopy Total fluoroscopy Time: time: 30.4 min 30.4 min Diagnostic fluoroscopy Total fluoroscopy dose: dose: 2579 mGy 2579 mGy Procedure Medications Medication Administration Route Dosage Heparin Flush Bag added to field 3 bags (1000units/500ml NS) Lidocaine 1% added to field 20 Hemodynamics Rest Pre Cath Intra NCS Post Cath Medications Time Medication Route Dose Verified Delivered Reason Notes Effe ctiveness by by 16:21:13 Heparin Flush added 3 Patricio Curry used for Bag to bags Nava Vick MD procedure (1000units/500ml field NS) 16:21:24 Lidocaine 1% added 20ml Patricio Curry for local to vial Nava Vick MD anesthetic field Procedure Log Time Note 15:57:53 Awa Godwin RN sent for patient. Start room use. 15:58:21 Time tracking: Regular hours (M-F 7:00 - 5:00) 15:58:31 Plan of Care:Hemodynamics will remain stable., Cardiac rhythm will remain stable., Comfort level will be maintained., Respiratory function will remain adequate., Patient/ family verbilizes understanding of procedure., Procedure tolerated without complication., Recovers from procedure without complications.. 15:58:40 Patient received from Med/Surg to IR Alert and oriented. Tansferred to table in Supine position. 15:58:42 Correct patient and procedure confirmed by team. 15:58:44 Signed procedure consent form obtained from patient. 15:58:46 Full Disclosure recording started 15:58:46 - 15:59:09 SEE ANESTHESIA NOTE FOR PRE PROCEDURE TIVA 15:59:10 - 15:59:14 H&P Date Dictated: 02/07/2019 Within 30 days and on chart.. 15:59:16 Pre-procedure instructions explained to patient. 15:59:16 Pre-op teaching completed and patient verbalized understanding. 15:59:18 Family unavailable. 15:59:20 Patient NPO since Midnight. 15:59:28 Use device set IR Diagnostic 15:59:29 ACIST Syringe (41719) opened to sterile field. 15:59:30 ACIST Hand Control (17449) opened to sterile field. 15:59:30 ACIST Manifold (79654) opened to sterile field. 15:59:30 Bag Decanter () opened to sterile field. 15:59:31 Sterile Angiographic Pack opened to sterile field. 15:59:31 Tegaderm 4 x 4 (1626W) opened to sterile field. 16:21:13 Heparin Flush Bag (1000units/500ml NS) 3 bags added to field was administered by Patricio Vick MD; used for procedure; 16::24 Lidocaine 1% 20ml vial added to field was administered by Patricio Vick MD; for local anesthetic; 16:24:00 see anesthesia record 16:27:17 Right Internal jugular was prepped with chlora-prep and draped in sterile fashion. 16:27:18 Alarms reviewed by R. N. 16::19 Alarms reviewed by R. N. 16:27:20 Physician arrived 16::20 --------ALL STOP TIME OUT------ 16::21 Final Timeout: patient, procedure, and site verified with staff and physician. All members of the team are in agreement. 16::25 Right neck site verified by team. 16:27:30 Fire Safety Assessment: A--An alcohol-based skin anteseptic being used preoperatively., C--Open oxygen or nitrous oxide is being used. 16:27:40 Sedation plan: General Anesthesia Medication:General Anesthesia 16:28:04 Procedure started. 16:28:12 Local anesthetic to right IJ vein with Lidocaine 1% by Patricio Vick MD.INITIAL ACCESS ONLY 16:28:19 STOPCOCK 3-Way Large Bore (B38922) opened to sterile field. 16:28:19 TUBING Contrast Injection High Pressure (RYH458R) opened to sterile field. 16:28:20 Micropuncture VSI 4FR kit opened to sterile field. 16:28:20 DOC .035 wire (F01857) opened to sterile field. 16:28:21 SHEATH 5FR [place] (IBZ063) opened to sterile field. 16:34:01 SHEATH 6FR [place] (KFM443) opened to sterile field. 16:34:59 PACE 260 wire (P39949) opened to sterile field. 16:35:00 GLIDE CATHETER 5FR ANGLED 65cm (CG507) opened to sterile field. 16:35:31 GLIDE WIRE .038 180cm ANGLED (GJ9004) opened to sterile field. 16:35:32 TORQUE DEVICE PLASTIC .038 ( TD01) opened to sterile field. 16:39:39 Timothy 5Fr OTW embolectomy catheter opened to sterile field. 16:39:39 AMPLATZ Super stiff 180cm wire ([id number]) opened to sterile field. 16:47:08 KIT, TRANSJUGULAR LIVER ACCESS R opened to sterile field. 17:27:43 St Danielito 10FR 23CM sheath opened to sterile field. 17:43:49 CHIBA 22 X 15 needle opened to sterile field. 17:50:22 NITINOL .018 80cm wire (K189975) opened to sterile field. 18:04:04 Micropuncture VSI 4FR kit opened to sterile field. 18:06:42 SHEATH 5FR [place] (RBD030) opened to sterile field. 18:15:00 GLIDE CATHETER 5FR COBRA 65cm (CG502) opened to sterile field. 18:18:49 TRANSEND STEERABLE wire ([id number]) opened to sterile field. 18:18:49 RENEGADE STAIGHT 150CM microcatheter ([id number]) opened to sterile field. 18:24:18 IDL Instant Technical Photographer (ID1) opened to sterile field. 18:24:19 COIL Concerto 6mm x 20cm (NB263PSVYL) opened to sterile field. 18:27:39 COIL Concerto 6mm x 20cm (QL491ZTGOH) opened to sterile field. 18:36:06 COIL Concerto 5 x 20 (VY18PGNFF) opened to sterile field. 18:38:36 COIL Interlock 10 X 20 ([id number]) opened to sterile field. 18:45:42 COIL Interlock 10 X 20 ([id number]) opened to sterile field. 18:45:45 COIL Concerto 5 x 20 (GT46BLMDU) opened to sterile field. 18:50:50 COIL Concerto 5 x 20 (ZS28JLYNZ) opened to sterile field. 18:56:33 COIL Interlock 12 X 20 ([id number]) opened to sterile field. 19:00:42 COIL Tornado 4MM (N05047) opened to sterile field. 19:01:58 COIL Tornado 4MM (I03264) opened to sterile field. 19:02:55 COIL Tornado 5mm (O75147) opened to sterile field. 19:04:12 COIL Tornado 5mm (Q01323) opened to sterile field. 19:05:34 COIL Tornado 4MM (V95765) opened to sterile field. 19:21:24 COIL Interlock 12 X 20 ([id number]) opened to sterile field. 19:27:27 Procedure ended.(Physican Out) 19:27:35 Fluoroscopy time 30.40 minutes. 19:27:42 Fluoroscopy dose: 2579 mGy 19:27:42 Flurop Dose total: 2579 19:30:27 Sharps counted by scrub and verified by R.N. 19:30:35 Post-op/insertion site Right Abdominal area dressed using a 4 x 4 and Tegaderm. 19:30:43 Post Abdominal area:stable 19:30:48 Patient needs reinforcement of post procedure teaching. 19:30:50 Procedure and supply charges have been captured, reviewed, submitted an d are correct. 19:36:27 Report given to Recovery Room. 19:36:29 Patient transfered to Recovery Room with Bed. Device Usage Item Name Manufacture Quantity Catalog Number Hospital Part Current [facility] Lot# / Charge Number Stock Stock Serial# Code ACIST Syringe Acist 1 90596 413596 130018 757078 20 (19618) Medical Systems Inc ACIST Hand Acist 1 24969 312346 170082 726521 5 Control Medical (09240) Systems Inc ACIST Acist 1 85200 936342 655387 598745 5 Manifold Medical (45432) Systems Inc Bag Decanter Microtek 1 2001S 446024 26743 169088 5 (2001S) Medical Inc. Sterile Cardinal 1 [id number] 890655 960556 5 Angiographic Health Pack Tegaderm 4 x 3M 1 1626W 566078 192616 793835 5 4 (1626W) STOPCOCK Cook Medical 1 C51752 524015 0365 073315 [address] 3-Way Large Bore (V09094) TUBING Merit 1 FGT223P 143540 698166 443437 5 Contrast Medical Injection High Pressure (WMV151Y) Micropuncture VSI VASCULAR 2 7266V 308992 653547 5 VSI 4FR kit SOLUTIONS DOC .035 wire Cook Medical 1 N42792 808282 528612 5 (H37288) SHEATH 5FR Terumo 2 UKN775 071566 485226 693695 5 [place] (KKK755) SHEATH 6FR Terumo 1 YYW234 094484 894459 785048 40 [place] (ZVO633) PACE 260 Cook Medical 1 B81380 607392 51300 096292 5 wire (C71827) GLIDE Terumo 1 CG507 570181 378048 5 CATHETER 5FR ANGLED 65cm (CG507) GLIDE WIRE Terumo 1 WA9146 308629 043188 5 .038 180cm ANGLED (QP3821) TORQUE DEVICE [place] 1 TD01 054521 764747 143529 5 PLASTIC .038 Scientific ( TD01) Timothy 5Fr Acuña 1 [id number] 694115 845114 209338 5 [facility] EpochciNewsvine embolectomy catheter AMPLATZ Super [place] 1 [id number] 321594 837868 408847 5 [id number] stiff 180cm Scientific wire ([id number]) KIT, Cook [facility] 1 L32909 348527 905998 5 1663900 TRANSJUGULAR LIVER ACCESS R [facility] Danielito 10FR St Danielito 1 501497 915847 886819 5 23CM sheath CHIBA 22 X 15 [facility] 1 E89082 107686 694280 5 4051753 needle NITINOL .018 Medtronic 1 D863917 869302 037096 5 [id number] 80cm wire (Z633030) GLIDE Terumo 1 CG502 011341 634409 5 CATHETER 5FR COBRA 65cm (CG502) TRANSEND [place] 1 [id number] 574271 231566 5 19158538 STEERABLE Scientific wire ([id number]) RENEGADE [place] 1 [id number] 953142 809248 5 [id number] STAIGHT 150CM Scientific microcatheter ([id number]) IDL Instant B. Fregoso 1 ID-1 [id number] 394792 5 [id number] Technical Photographer (ID1) COIL Concerto Medtronic 2 GE-4-60-HELIX 450827 416237 460461 5 G780501 6mm x 20cm U740559 ([id number]) COIL Concerto Medtronic 3 PN-5-6-HELIX 973659 502183 222529 5 E411250 5 x 20 U747735 ([id number]) [id number] COIL [place] 2 [id number] 059042 966904 5 [id number] Interlock 10 Scientific 23137028 X 20 ([id number]) COIL [place] 2 [id number] 576836 449918 225841 5 [id number] Interlock 12 Scientific 61121687 X 20 ([id number]) COIL [facility] 3 W23609 147404 960660 5 3420015 4MM (V26249) 4288907 9456965 COIL [facility] 2 Q18029 434599 279478 5 9083370 5mm (K30595) 3279314 Signature Audit [place] Stage Time Signature Unsigned Intra-Procedure 02/07/2019 Nasir 7:36:53 PM Dariela RT (R) (CV) Signatures Monitor : Nasir Signature : Farhanaield RT Date : Time : [address] [address]
[~2019-01-27 15:23] MED LIST: ALDACTONE25 MG PO; CARAFATE1 G PO; CHRONULAC30 ML PO; CLARITIN 10 MG10 MG PO; IPRAT-ALBUT 0.5-3 ML UPD; LASIX40 MG PO; PROPRANOLOL HCL20 MG PO; PROTONIX40 MG PO; XIFAXAN550 MG PO
--- NOTE | 2019-01-27 16:00 | NUR ---
CORRECTION OFFICERS WITH THE PATIENT. HOLLI #[id number] AND CARYN #[id number].
--- NOTE | 2019-01-27 18:00 | NUR ---
ATTEMPTED TO DRAW BLOOD FROM PICC LINE UNSUCCESSFUL. BOTH LINES WILL FLUSH BUT NOT DRAW BACK.
[2019-01-27 18:15] LABS: HEMATOCRIT 31.2 % (42.0-54.0); HEMOGLOBIN 10.1 g/dL (13.5-17.5); MCHC 32.4 g/dL (31.0-37.0); MCV 98.7 fL (80.0-100.0); MEAN PLATELET VOLUME 11.9 fL (7.4-10.4); PLATELET COUNT 84 10x3/uL (130-400); RBC 3.16 10x6/uL (4.20-6.10); RDW 21.1 % (11.5-14.5)
[2019-01-27 18:25] LABS: INR 1.76 (0.85-1.17); PROTIME 19.9 SECONDS (11.6-15.0)
[2019-01-27 18:29] LABS: ALBUMIN 1.8 g/dL (3.4-5.0); ANION GAP 9.9 mmol/L (8-16); BILIRUBIN - TOTAL 5.98 mg/dL (0.2-1.3); CALCIUM 7.7 mg/dL (8.5-10.1); CARBON DIOXIDE 26.3 mmol/L (21.0-32.0); CREATININE - SERUM 1.2 mg/dL (0.6-1.3); POTASSIUM - SERUM 5.2 mmol/L (3.5-5.1); PROTEIN - SERUM 5.1 g/dL (6.4-8.2)
[2019-01-27 18:39] LABS: EOSINOPHILS 2 % (0-7); LYMPHOCYTES 8 % (15-50); MONOCYTES 14 % (2-11); NEUTROPHILS 71 % (40-80); PLATELET ESTIMATE DECREASED
[2019-01-27 19:00] VITALS: BP 104/67
[2019-01-27 19:30] VITALS: BP 101/57
[2019-01-27 19:59] LABS: APPEARANCE HAZY (CLEAR); BILIRUBIN NEGATIVE (NEGATIVE); COLOR DK YELLOW (YELLOW); GLUCOSE NEGATIVE (NEGATIVE); KETONE NEGATIVE (NEGATIVE); NITRITE NEGATIVE (NEGATIVE); PROTEIN NEGATIVE (NEGATIVE); SPECIFIC GRAVITY 1.015 (1.005-1.020); UROBILINOGEN NORMAL (NORMAL)
[2019-01-27 20:00] VITALS: BP 105/64
[2019-01-27 20:00] LABS: BACTERIA NONE SEEN /hpf (NONE SEEN); EPITHELIAL CELLS OCC /hpf (0-5); RED CELLS - URINE 25-50 /hpf (0-5); WHITE CELLS - URINE 0-5 /hpf (0-5)
[2019-01-27 20:48] VITALS: BP 106/58
[2019-01-28] VITALS (11 sets, daily range): BP systolic 96–110; BP diastolic 51–64; BMI 29.9
[2019-01-28 05:25] LABS: BASOPHILS 0.3 % (0-2); EOSINOPHILS 1.9 % (0-7); HEMATOCRIT 28.5 % (42.0-54.0); HEMOGLOBIN 9.4 g/dL (13.5-17.5); IMMATURE GRANULOCYTES 7.9 % (0-5); LYMPHOCYTES 11.8 % (15-50); MCH 32.8 pg (26.0-34.0); MCV 99.3 fL (80.0-100.0); MEAN PLATELET VOLUME 12.5 fL (7.4-10.4); MONOCYTES 9.8 % (2-11); NEUTROPHILS 68.3 % (40-80); PLATELET COUNT 70 10x3/uL (130-400); RBC 2.87 10x6/uL (4.20-6.10); RDW 21.2 % (11.5-14.5); WBC 23.3 10x3/uL (4.8-10.8)
[2019-01-28 05:36] LABS: ANION GAP 10.9 mmol/L (8-16); CALCIUM 7.2 mg/dL (8.5-10.1); CREATININE - SERUM 1.1 mg/dL (0.6-1.3); POTASSIUM - SERUM 4.9 mmol/L (3.5-5.1)
--- NOTE | 2019-01-28 08:55 | NUR ---
PAGED [phone] TO REPORT CONSULT, AWAITING A RETURN CALL
--- NOTE | 2019-01-28 08:59 | NUR ---
DR PATEL RETURNED THE CALL AND WAS NOTIFIED OF THE CONSULT, SHE STATES SHE WILL SEE THE PATIENT TONIGHT. NEW ORDER FOR ULTRAM FOR PAIN, DC TYLENOL
[2019-01-28 11:06] LABS: HEMATOCRIT 27.7 % (42.0-54.0); HEMOGLOBIN 9.2 g/dL (13.5-17.5)
--- NOTE | 2019-01-28 17:49 | NUR ---
REC'D TO ICU, GUARD AT BS. ALL CARDIO PULMONARY MONITORING EQUIPMENT ATTACHED AND ALARMS SET. VSS. DR ORTEGA HERE AND SHE SPOKE TO PT AT BS.
[2019-01-28 19:06] LABS: HEMATOCRIT 31.1 % (42.0-54.0); HEMOGLOBIN 10.1 g/dL (13.5-17.5)
--- NOTE | 2019-01-28 19:30 | NUR ---
ASSESSMENT COMPLETE, PER NURSING FLOWSHEET, VSS, NO NEEDS VOICED OR NOTED AT THIS TIME
--- NOTE | 2019-01-28 21:00 | NUR ---
PATIENT REPOSITIONED, SNACK PROVIDED PER DIET ORDER, NO OTHER NEEDS VOICED OR NOTED
--- NOTE | 2019-01-28 23:00 | NUR ---
RE-ASSESSMENT COMPLETE, PER NURSING FLOWSHEET, PATIENT REPOSITIONED, VSS, GUARD CONTINUES AT BS, CONTINUE POC
[2019-01-29] VITALS (24 sets, daily range): BP systolic 90–123; BP diastolic 44–76
--- NOTE | 2019-01-29 01:00 | NUR ---
PATIENT MORALES CARE PROVIDED, PATIENT HAD BM OF DIARRHEA, BLACK, COFFEE GROUND EMESIS APPEARING, STOOL SAMPLE TO LAB, PER MD. ORDER. PATIENT REPOSITIONED
--- NOTE | 2019-01-29 03:00 | NUR ---
RE-ASSESSMENT COMPLETE. PATIENT ON BEDPAN, REPEAT BM OF SAME APPEARANCE PREVIOUS BM AT 0100, STOOL SAMPLE SENT TO LAB. PICC LINE NOT DRAWING, THIS NURSE, PLUS OTHER RN'S WELL LAB HAVE BEEN ATTEMPTING PERIPHERAL STICKS TO OBTAIN BLOOD FOR SERIAL LABS WITHOUT SUCCESS.
--- NOTE | 2019-01-29 04:30 | NUR ---
PICC LINE FINALLY FUNCTIONING WELL ENOUGH TO DRAW BLOOD, BLOOD SAMPLES SENT
[2019-01-29 04:40] LABS: BASOPHILS 0.1 % (0-2); EOSINOPHILS 2.3 % (0-7); HEMATOCRIT 26.5 % (42.0-54.0); HEMOGLOBIN 8.8 g/dL (13.5-17.5); IMMATURE GRANULOCYTES 6.2 % (0-5); LYMPHOCYTES 9.9 % (15-50); MCH 33.1 pg (26.0-34.0); MCHC 33.2 g/dL (31.0-37.0); MCV 99.6 fL (80.0-100.0); MEAN PLATELET VOLUME 11.1 fL (7.4-10.4); NEUTROPHILS 71.5 % (40-80); RBC 2.66 10x6/uL (4.20-6.10); RDW 21.8 % (11.5-14.5); WBC 19.6 10x3/uL (4.8-10.8)
[2019-01-29 04:41] LABS: PLATELET COUNT 51 10x3/uL (130-400)
[2019-01-29 04:58] LABS: ALBUMIN 1.5 g/dL (3.4-5.0); ANION GAP 8.2 mmol/L (8-16); BILIRUBIN - DIRECT 3.36 mg/dL (0.00-0.30); BILIRUBIN - INDIRECT 1.34 mg/dL (0.00-1.00); BILIRUBIN - TOTAL 4.7 mg/dL (0.2-1.3); CALCIUM 7.2 mg/dL (8.5-10.1); CARBON DIOXIDE 27.3 mmol/L (21.0-32.0); CREATININE - SERUM 1.3 mg/dL (0.6-1.3); POTASSIUM - SERUM 4.5 mmol/L (3.5-5.1); PROTEIN - SERUM 4.7 g/dL (6.4-8.2)
--- NOTE | 2019-01-29 05:00 | NUR ---
PATIENT REPOSITIONED, NO OTHER NEEDS VOICED OR NOTED AT THIS TIME, C/L IN REACH
[2019-01-29 05:26] LABS: INR 1.56 (0.85-1.17); PROTIME 18.1 SECONDS (11.6-15.0)
[2019-01-29 05:38] LABS: PLATELET ESTIMATE DECREASED
[2019-01-29 06:11] LABS: HEMATOCRIT 26.8 % (42.0-54.0); HEMOGLOBIN 8.7 g/dL (13.5-17.5)
--- NOTE | 2019-01-29 07:00 | NUR ---
REPORT RECEIVED INITIAL ASSESSMENT COMPLETED. PT ALERT AND ORIENTED X4. DENIES DISCOMFORT OR DISTRESS. RESP EVEN AND NONLABORED ROOM AIR WITH SATS 99. CHEST CLEAR TO ASCULTATE. SHOPPING INSPECTOR ALARMS ON AND AUDIBLE READING SR WITHOUT ECTOPY. GENERALIZED EDEMA PPP. BUTTOCKS RED AND EXCORIATED BOUDREOUX BUTT PASTE APPLIED. LEFT UPPER ARM PICC LINE WITH NS INFUSING SEE IV FLOWSHEET. PPP BED IN LOW POSITION SIDE RAILS UP TIMES 3 FOR BED MOBILITY AND SAFETY. GUARD FROM CORRECTIONS AT BEDSIDE. PT HUNGRY AND REQUESTING BREAKFAST. INFORMED I WOULD BRING SOON TRAYS ARRIVED.
--- NOTE | 2019-01-29 07:45 | NUR ---
1 UNIT OF PRBC STARTED AFTER BEING CHECKED AND VERIFIED WITH KYLAH STOCK PER ORDERS.
--- NOTE | 2019-01-29 10:00 | NUR ---
PRBC COMPLETED WILL CHECK H&H HOUR AFTER
--- NOTE | 2019-01-29 11:00 | NUR ---
REASSESSMENT COMPLETE SEE FLOWSHEET. SR PER CM. VSS NO DISTRESS OR C/O AT THIS TIME. GUARD REMAINS AT BEDSIDE
--- NOTE | 2019-01-29 11:30 | NUR ---
PT REQUESTING BED CHEN HAD LARGE LIQUID BROWN STOOL NO RONA BLEEDING NO DARK OLD BLOOD SIGNS EITHER.
--- NOTE | 2019-01-29 13:30 | NUR ---
PT HAD LARGE LIQUID BROWN STOOL BEFORE ABLE TO CALL FOR BEDPAN. COMPLETE BED BATH AND LINEN CHANGE.
--- NOTE | 2019-01-29 13:40 | NUR ---
POST TRANSFUSION LAB DRAWN FROM PICC LINE
[2019-01-29 14:19] LABS: HEMATOCRIT 28.2 % (42.0-54.0); HEMOGLOBIN 9.2 g/dL (13.5-17.5)
--- NOTE | 2019-01-29 15:00 | NUR ---
REASSESSMENT COMPLETED VSS NO DISTRESS NOTED ENCOURAGED PT TO TURN AND REPOSITION OFTEN TO RELIEVE PRESSURE TO EXCORIATED AREAS OF BUTTOCKS. GUARD REMAINS POSTED AT BEDSIDE
--- NOTE | 2019-01-29 16:15 | NUR ---
PT REQUESTING BED CHEN LARGE LIQUID BROWN STOOL. AFTER CLEANING APPLIED BOUDREOUX BUTT PASTE TO IRRITATED EXCORIATED AREAS OF BUTTOCKS
--- NOTE | 2019-01-29 18:30 | NUR ---
ANSWERED CALL LIGHT PT C/O BURNING IN STOMACH AND NAUSEA. MEDICATED WITH PRN TRAMADOL FOR PAIN AND ZOFRAN FOR NAUSEA ALSO GAVE PROTONIX THAT IS SCHEDULED FOR 1914.
--- NOTE | 2019-01-29 18:40 | NUR ---
DR PATEL ROUNDS, INFORMED OF PT C/O SEVERE ABD BURNING/PAIN AND THAT I HAD MEDICATED WITH PRN TRAMADOL, ZOFRAN AND PROTONIX EARLY. PT HAD JUST FINISHED EATING APPROXIMATELY 45MIN-AN HOUR BEFORE PAIN STARTED. THE DINNER MEAL WAS THE MOST PATIENT HAD EATEN TODAY IT WAS FULL LIQUIDS. DR PATEL STATED SHE WOULD PUT ORDERS IN FOR STRONGER PAIN MED THAN THE ULTRAM.
--- NOTE | 2019-01-29 19:15 | NUR ---
DR PATEL PUTTING DIFFERENT STRONGER PAIN MED ORDERS IN
--- NOTE | 2019-01-29 19:20 | NUR ---
ANSWERED CALL LIGHT PT HAD LARGE LIQUID BROWN STOOL UNABLE TO GET BED CHEN. COMPLETE LINEN CHANGE AND PARTIAL BED BATH
--- NOTE | 2019-01-29 19:30 | NUR ---
ASSESSMENT COMPLETE, PER NURSING FLOWSHEET, PATIENT REPOSITIONED, NO OTHER NEEDS VOICED OR NOTED AT THIS TIME.
--- NOTE | 2019-01-29 21:00 | NUR ---
PATIENT REPOSITIONED, WATCHING TV, GUARD CONTINUES AT BEDSIDE, NO OTHER NEEDS VOICED OR NOTED
[2019-01-29 22:09] LABS: HEMATOCRIT 28.8 % (42.0-54.0); HEMOGLOBIN 9.4 g/dL (13.5-17.5)
--- NOTE | 2019-01-29 23:00 | NUR ---
RE-ASSESSMENT COMPLETED PER NURSING FLOWSHEET, PATIENT REPOSITIONED, NO OTHER NEEDS VOICED OR NOTED AT THIS TIME
[2019-01-30] VITALS (24 sets, daily range): BP systolic 90–118; BP diastolic 50–75
[2019-01-30 06:02] LABS: BASOPHILS 0.2 % (0-2); EOSINOPHILS 2.9 % (0-7); HEMATOCRIT 28.7 % (42.0-54.0); HEMOGLOBIN 9.4 g/dL (13.5-17.5); IMMATURE GRANULOCYTES 6.8 % (0-5); LYMPHOCYTES 11.2 % (15-50); MCH 32.8 pg (26.0-34.0); MCHC 32.8 g/dL (31.0-37.0); MEAN PLATELET VOLUME 11.3 fL (7.4-10.4); MONOCYTES 10.1 % (2-11); NEUTROPHILS 68.8 % (40-80); RBC 2.87 10x6/uL (4.20-6.10); RDW 22.3 % (11.5-14.5)
[2019-01-30 06:07] LABS: WBC 12.7 10x3/uL (4.8-10.8)
[2019-01-30 06:08] LABS: PLATELET COUNT 42 10x3/uL (130-400)
[2019-01-30 06:37] LABS: CALC OSMOLALITY 272 mosm/kg (275-300); CALCIUM 7.3 mg/dL (8.5-10.1); CARBON DIOXIDE 25.7 mmol/L (21.0-32.0); CHLORIDE - SERUM 104 mmol/L (98-107); GLUCOSE 105 mg/dL (74-106); POTASSIUM - SERUM 4.2 mmol/L (3.5-5.1); SODIUM 132 mmol/L (136-145); UREA NITROGEN 34 mg/dL (7-18); eGFR NON AFRICAN AMERICAN 83 mL/min (90-120)
--- NOTE | 2019-01-30 07:00 | NUR ---
REPORT RECEIVED ASSESSMENT COMPLETE SEE FLOWSHEET. PT AWAKE ALERT AND ORIENTED STATES HE FEELS BETTER WITH THE IV PAIN MED DR PATEL HAD ORDERED LAST PM. METAL FLOW COORDINATOR ON AND ALARMS ON AND AUDIBLE READING SR NO ECTOPY AT THIS TIME. RESP SHALLOW, SOB WITH EVEN MINIMAL EXERTION ENCOURAGED PT TO TAKE DEEP BREATHS AND TO COUGH, MOVE AROUND EVEN IF UNCOMFORTABLE HE VERBALIZES UNDERSTANDING. LEFT UPPER ARM PICC LINE WITH IV FLUIDS INFUSING WITHOUT DIFFICULTY SEE IV FLOWSHEETS AND EMAR. PICC DRESSING CLEAN DRY AND INTACT WITH BIOPATCH AND SWAB CAPS NOTED. PT BUTTOCKS REDDENED AND EXCORIATED FROM FREQUENT LOOSE STOOLS. MEAGAN BUTT PASTE APPLIED. GUARD AT BEDSIDE 22/06. BED LOW POSITION CALL LIGHT IN REACH AND SIDE RAILS UP TIMES 3 FOR BED MOBILITY AND SAFETY. VSS AT THIS TIME NO DISTRESS NOTED.
--- NOTE | 2019-01-30 08:10 | NUR ---
PT C/O PAIN 7 ON 1-10 SCALE REQUESTING PAIN MED. DILAUDID 1 MG GIVEN SIVP PER PRN ORDERS. VSS
--- NOTE | 2019-01-30 08:45 | NUR ---
PT DID GET RELIEF FROM DILAUDID, PAIN NOW 3 ON 1-10 SCALE
--- NOTE | 2019-01-30 11:00 | NUR ---
REASSESSMENT MADE SEE FLOWSHEETS, VSS NO DISTRESS OR C/O NOTED AT THIS TIME. GUARD REMAINS AT BEDSIDE.
--- NOTE | 2019-01-30 13:30 | NUR ---
DR PATEL HERE ROUNDING, NEW ORDERS NOTED.
--- NOTE | 2019-01-30 16:00 | NUR ---
PT C/O ABD PAIN. MEDICATED WITH DILAUDID [address] GONZALEZ
--- NOTE | 2019-01-30 20:00 | NUR ---
REPOSITIONED TO LEFT SIDE AT THIS TIME. DISCUSSED PLAN OF CARE FOR THIS SHIFT WITH THE PATIENT. DENIES ANY NEEDS AT THIS TIME.
--- NOTE | 2019-01-30 22:00 | NUR ---
PATIENT REPOSITIONED TO RIGHT SIDE AT THIS TIME. VSS. DENIES ANY NEEDS AT THIS TIME.
--- NOTE | 2019-01-30 22:52 | NUR ---
DR LANDEROS NOTIFIED. VANC TROUGH 27.5. DO NOT GIVE. PHARMACY TO RE-DOSE IN AM.
--- NOTE | 2019-01-30 23:00 | NUR ---
RE-ASSESSMENT COMPLETE PER NURSING FLOWSHEET, PATIENT REPOSITIONED, NO OTHER NEEDS VOICED OR NOTED AT THIS TIME
[2019-01-31] VITALS (25 sets, daily range): BP systolic 96–111; BP diastolic 51–83
--- NOTE | 2019-01-31 00:01 | NUR ---
PATIENT REPOSITIONED. VSS. NO NEEDS AT THIS TIME.
--- NOTE | 2019-01-31 01:00 | NUR ---
PATIENT REPOSITIONED, MORALES CARE PROVIDED, NO OTHER NEEDS VOICED OR NOTED
--- NOTE | 2019-01-31 02:00 | NUR ---
VSS. DENIES ANY NEEDS AT THIS TIME
--- NOTE | 2019-01-31 03:00 | NUR ---
RE-ASSESSMENT COMPLETE, PATIENT REPOSITIONED, C/L, IN REACH
--- NOTE | 2019-01-31 04:00 | NUR ---
DENIES ANY NEEDS AT THIS TIME
--- NOTE | 2019-01-31 05:00 | NUR ---
PATIENT REPOSITIONED, ORAL CARE PROVIDED, NO OTHER NEEDS VOICED OR NOTED AT THIS TIME
[2019-01-31 05:18] LABS: INR 1.49 (0.85-1.17); PROTIME 17.4 SECONDS (11.6-15.0)
[2019-01-31 05:22] LABS: ALBUMIN 1.5 g/dL (3.4-5.0); ALKALINE PHOSPHATASE 109 U/L (46-116); ALT (SGPT) 147 U/L (10-68); BILIRUBIN - DIRECT 3.56 mg/dL (0.00-0.30); BILIRUBIN - TOTAL 4.96 mg/dL (0.2-1.3); CALC OSMOLALITY 277 mosm/kg (275-300); CALCIUM 7.2 mg/dL (8.5-10.1); CARBON DIOXIDE 28.8 mmol/L (21.0-32.0); CHLORIDE - SERUM 102 mmol/L (98-107); CREATININE - SERUM 0.9 mg/dL (0.6-1.3); GLUCOSE 154 mg/dL (74-106); POTASSIUM - SERUM 4.3 mmol/L (3.5-5.1); SODIUM 135 mmol/L (136-145); UREA NITROGEN 26 mg/dL (7-18); eGFR NON AFRICAN AMERICAN > 90 mL/min (90-120)
[2019-01-31 05:28] LABS: BASOPHILS 0.1 % (0-2); EOSINOPHILS 1.5 % (0-7); HEMATOCRIT 28.3 % (42.0-54.0); HEMOGLOBIN 9.1 g/dL (13.5-17.5); IMMATURE GRANULOCYTES 1.8 % (0-5); LYMPHOCYTES 5.2 % (15-50); MCH 32.7 pg (26.0-34.0); MCHC 32.2 g/dL (31.0-37.0); MCV 101.8 fL (80.0-100.0); NEUTROPHILS 84.4 % (40-80); RBC 2.78 10x6/uL (4.20-6.10); RDW 22.2 % (11.5-14.5); WBC 14.5 10x3/uL (4.8-10.8)
[2019-01-31 05:30] LABS: PLATELET COUNT 45 10x3/uL (130-400)
--- NOTE | 2019-01-31 06:00 | NUR ---
VSS. DENIES ANY NEEDS AT THIS TIME.
[2019-01-31 07:16] LABS: MAGNESIUM - SERUM 1.9 mg/dL (1.8-2.4); PHOSPHOROUS 2.3 mg/dL (2.5-4.9)
--- NOTE | 2019-01-31 07:20 | NUR ---
REPORT RECIEVED, SHIFT ASSESSMENT COMPLETE, PT IS ALERT AND ORIENTED, ON 2L NC WITH 97% O2 SAT. ALL PPP, VSS, CALL LIGHT IN REACH
--- NOTE | 2019-01-31 09:00 | NUR ---
PT DENIES ANY NEEDS AT THIS TIME, WILL CON'T TO MONITOR
--- NOTE | 2019-01-31 09:55 | NUR ---
Nutrition follow-up: Diet: Regular; NPO at this time for TIPS PO intake ~80% of meals Labs reviewed +BM Wt: 245# RDN following.
--- NOTE | 2019-01-31 11:15 | NUR ---
REASSESSMENT COMPLETE, NO CHANGES NOTED, VSS, CALL LIGHT IN REACH
--- NOTE | 2019-01-31 11:51 | NUR ---
Mr. De Los Santos was admitted on 01/27/19 with a stage 2 pressure injury present. It is located on the right side of coccyx and measures 1cm x 1cm x 0.2cm. The wound bed is red. There is no odor. There is a small amount of sanguinous drainage. Pt is A&Ox3 and follows instructions. He is able to assist with turning/repositioning. After instruction provided about importance of relieving pressure from the wound site, he voiced his understanding about pressure relief and stated he wound reposition himself frequently. Mepilex dressing was applied to cover the wound. Wound care will continue monitoring.
--- NOTE | 2019-01-31 13:15 | NUR ---
NO NEEDS NOTED AT THIS TIME, PT RESTING COMFORTABLY, WILL CON'T TO MONITOR
--- NOTE | 2019-01-31 15:25 | NUR ---
PT TO IR AT THIS TIME
--- NOTE | 2019-01-31 16:00 | NUR ---
PT BACK FROM IR AT THIS TIME, HOOKED TO MONITORS,
[2019-01-31 16:39] LABS: PROTEIN - BODY FLUID 0.2 G/DL
[2019-01-31 20:01] LABS: NEUT - BF 52 %
[2019-01-31 20:02] LABS: EOS BF 4 %; MACROPHAGES BF 13 %; MESOTHELIALS BF 3 %
[2019-02-01] VITALS (21 sets, daily range): BP systolic 98–121; BP diastolic 47–73
[2019-02-01 04:43] LABS: INR 1.6 (0.85-1.17); PROTIME 18.5 SECONDS (11.6-15.0)
[2019-02-01 04:58] LABS: ALBUMIN 1.6 g/dL (3.4-5.0); ALKALINE PHOSPHATASE 102 U/L (46-116); BILIRUBIN - TOTAL 3.75 mg/dL (0.2-1.3); CALC OSMOLALITY 280 mosm/kg (275-300); CALCIUM 7.2 mg/dL (8.5-10.1); CARBON DIOXIDE 28.7 mmol/L (21.0-32.0); CHLORIDE - SERUM 104 mmol/L (98-107); GLUCOSE 124 mg/dL (74-106); POTASSIUM - SERUM 4.3 mmol/L (3.5-5.1); SODIUM 138 mmol/L (136-145); UREA NITROGEN 23 mg/dL (7-18); eGFR NON AFRICAN AMERICAN 83 mL/min (90-120)
[2019-02-01 05:00] LABS: BASOPHILS 0.2 % (0-2); EOSINOPHILS 1.5 % (0-7); HEMATOCRIT 24.8 % (42.0-54.0); IMMATURE GRANULOCYTES 1.5 % (0-5); LYMPHOCYTES 11.3 % (15-50); MCH 33.1 pg (26.0-34.0); MCHC 32.3 g/dL (31.0-37.0); MCV 102.5 fL (80.0-100.0); MONOCYTES 8.3 % (2-11); NEUTROPHILS 77.2 % (40-80); RBC 2.42 10x6/uL (4.20-6.10); RDW 22.6 % (11.5-14.5)
[2019-02-01 05:01] LABS: WBC 5.3 10x3/uL (4.8-10.8)
[2019-02-01 05:03] LABS: PLATELET COUNT 34 10x3/uL (130-400)
[2019-02-01 05:06] LABS: ALT (SGPT) 105 U/L (10-68)
[2019-02-01 05:49] LABS: PLATELET ESTIMATE DECREASED
--- NOTE | 2019-02-01 07:10 | NUR ---
REPORT RECIEVED, SHIFT ASSESSMENT COMPLETE, PT IS ALERT AND ORIENTED, ALL PPP, VSS, WILL CON'T TO MONITOR
--- NOTE | 2019-02-01 08:45 | NUR ---
DR. NOEL AT BEDSIDE, UPDATE GIVEN
--- NOTE | 2019-02-01 11:00 | NUR ---
REASSESSMENT COMPLETE PER FLOW SHEET. VSS. NO NEW CHAGNES WILL CONTINUE TO MONTIIR
--- NOTE | 2019-02-01 11:15 | NUR ---
PT RESTING AT THIS TIME, NO NEEDS NOTED, WILL CON'T TO MONITOR
--- NOTE | 2019-02-01 12:15 | NUR ---
PT AWAKE GIVEN LUNCH TRAY ATE 75%
--- NOTE | 2019-02-01 13:15 | NUR ---
UPDATE GIVEN TO DR. PATEL OVER PHONE, NEW ORDERS RECIEVED,
--- NOTE | 2019-02-01 14:51 | MORECARE ---
CASE MANAGEMENT DISCHARGE SUMMARY PATIENT: BRIAN GIRON UNIT: [id number] ADM DATE: 01/27/19 AGE: 53 : 65 SEX: M ROOM/BED: D.2305 AUTHOR: REESE HAYWARD PHYSICIAN: REFERRING PHYSICIAN: AKBAR LANDEROS MD DATE OF SERVICE: 02/01/19 Discharge Plan Patient Name: BRIAN GIRON [facility] [facility] 1965 Planned Disposition: Court\Law Enforcement Anticipated Discharge Date: Discharge Date: Expected LOS: Initial Reviewer: [email or web address] Initial Review Date: 02/01/2019 Generated: 02/01/19 3:51 pm Comments DCP- Discharge Planning Updated by [id number]: Deana Barfield on 02/01/19 1:[address] PATIENT WILL RETURN [facility]ON DISCHARGE. CM WILL CONTINUE TO FOLLOW AND ASSIST NEEDED WITH DISCHARGE PLANNING / NEEDS. Patient Name: BRIAN GIRON Page [phone] at 1451 All edits/amendments must be made on the electronic document DICTATION DATE: 02/01/19 145 MANAGER SITE: PERLA 02/01/19 145 RPT#: [id number] DC DATE: STATUS: ADM IN [facility] [address] [place] [address] END OF REPORT
--- NOTE | 2019-02-01 15:00 | NUR ---
REASSESSMENT COMPLETE PER FLOW SHEET VSS NO NEW CHANGES PT RESTING COMFORTABLY WILL CONTINUE TO MONITO R
--- NOTE | 2019-02-01 17:00 | NUR ---
DINNER TRAY GIVEN ATE 20% DENIES NEEDS WILL CONTNIUE TO MONITOR
--- NOTE | 2019-02-01 17:32 | NUR ---
DR. PATEL AT BEDSIDE, UPDATE GIVEN
[2019-02-02] VITALS (10 sets, daily range): BP systolic 93–108; BP diastolic 55–68
[2019-02-02 05:04] LABS: BASOPHILS 0 % (0-2); EOSINOPHILS 1.5 % (0-7); HEMATOCRIT 27.1 % (42.0-54.0); HEMOGLOBIN 8.8 g/dL (13.5-17.5); IMMATURE GRANULOCYTES 0.6 % (0-5); LYMPHOCYTES 14.4 % (15-50); MCH 32.4 pg (26.0-34.0); MCHC 32.5 g/dL (31.0-37.0); MEAN PLATELET VOLUME 11.5 fL (7.4-10.4); MONOCYTES 9.9 % (2-11); NEUTROPHILS 73.6 % (40-80); RBC 2.72 10x6/uL (4.20-6.10); RDW 22.4 % (11.5-14.5); WBC 4.7 10x3/uL (4.8-10.8)
[2019-02-02 05:12] LABS: MCV 99.6 fL (80.0-100.0)
[2019-02-02 05:14] LABS: PLATELET COUNT 27 10x3/uL (130-400)
[2019-02-02 05:23] LABS: CALCIUM 7.2 mg/dL (8.5-10.1); CARBON DIOXIDE 28.1 mmol/L (21.0-32.0); CHLORIDE - SERUM 101 mmol/L (98-107); GLUCOSE 103 mg/dL (74-106); POTASSIUM - SERUM 3.9 mmol/L (3.5-5.1); SODIUM 135 mmol/L (136-145); VANCOMYCIN - RANDOM 20.5 ug/mL (10.0-20.0)
[2019-02-02 05:25] LABS: CALC OSMOLALITY 270 mosm/kg (275-300); CREATININE - SERUM 0.7 mg/dL (0.6-1.3); UREA NITROGEN 16 mg/dL (7-18); eGFR NON AFRICAN AMERICAN > 90 mL/min (90-120)
--- NOTE | 2019-02-02 06:20 | NUR ---
PICC LINE DRESSING CHANGE COMPLETE, BED BATH GIVEN, AND COCCYX DRESSING CHANGED WITH 1X1 CM STAGE TWO ULCERATION WITH NO DRAINAGE NOTED.
--- NOTE | 2019-02-02 07:10 | NUR ---
REPORT RECIEVED, SHIFT ASSESSMENT COMPLETE, PT IS ALERT AND ORIENTED, ALL PPP, VSS, CALL LIGHT IN REACH
--- NOTE | 2019-02-02 08:15 | NUR ---
DR. PATEL AT BEDSIDE, UPDATE GIVEN, OK TO TRANSFER TO FLOOR
--- NOTE | 2019-02-02 09:52 | NUR ---
Nutrition follow-up: Diet: Regular PO intake good per nurse Labs reviewed Wt: 245# RDN following.
--- NOTE | 2019-02-02 10:20 | NUR ---
ATE 50% BREAKFAST DENIES NEEDS
--- NOTE | 2019-02-02 11:30 | NUR ---
PT FOOT PRESS OPERATOR LIGHT GIVEN PRN ULTRAM PER REQUEST DENIES FURTHER NEEDS
--- NOTE | 2019-02-02 12:40 | NUR ---
GIVEN LUNCH TRAY. ATE 75%.
--- NOTE | 2019-02-02 15:34 | NUR ---
REPORT CALLED TO EMMY ON MED SURG
--- NOTE | 2019-02-02 17:38 | NUR ---
I have reviewed this patient and I concur with the Shift Assessment completed by the Licensed Practical Nurse today this shift.
--- NOTE | 2019-02-02 20:39 | NUR ---
LYING QUIELTY WITH NO COMPLAITNS VOICED. RESP EVEN AND UNALBORED. NO DISTRESS NOTED.O2 @ 2L PER NC ON. ABD DISTENDED. PICC LINE INTACT TO SAI WITHOUT REDNESS OR EDEMA NOTED. CL IN REACH. DARI AT BEDSIDE
--- NOTE | 2019-02-03 04:02 | NUR ---
I have reviewed this patient and I concur with the Shift Assessment completed by the Licensed Practical Nurse today this shift.
[2019-02-03 05:33] LABS: BASOPHILS 0.2 % (0-2); EOSINOPHILS 2.3 % (0-7); HEMATOCRIT 29.1 % (42.0-54.0); HEMOGLOBIN 9.3 g/dL (13.5-17.5); IMMATURE GRANULOCYTES 1.2 % (0-5); LYMPHOCYTES 14.1 % (15-50); MCH 32.5 pg (26.0-34.0); MEAN PLATELET VOLUME 11.2 fL (7.4-10.4); MONOCYTES 9.8 % (2-11); NEUTROPHILS 72.4 % (40-80); RBC 2.86 10x6/uL (4.20-6.10); RDW 22.2 % (11.5-14.5); WBC 4.3 10x3/uL (4.8-10.8)
[2019-02-03 05:34] LABS: MCV 101.7 fL (80.0-100.0)
[2019-02-03 05:35] LABS: INR 1.52 (0.85-1.17); PROTIME 17.7 SECONDS (11.6-15.0)
[2019-02-03 05:36] LABS: PLATELET COUNT 24 10x3/uL (130-400)
[2019-02-03 05:56] LABS: ALBUMIN 1.7 g/dL (3.4-5.0); ALKALINE PHOSPHATASE 92 U/L (46-116); ALT (SGPT) 81 U/L (10-68); BILIRUBIN - INDIRECT 1.92 mg/dL (0.00-1.00); BILIRUBIN - TOTAL 4.12 mg/dL (0.2-1.3); CALC OSMOLALITY 270 mosm/kg (275-300); CALCIUM 7.3 mg/dL (8.5-10.1); CARBON DIOXIDE 30.8 mmol/L (21.0-32.0); CHLORIDE - SERUM 100 mmol/L (98-107); CREATININE - SERUM 0.8 mg/dL (0.6-1.3); GLUCOSE 111 mg/dL (74-106); POTASSIUM - SERUM 3.7 mmol/L (3.5-5.1); PROTEIN - SERUM 5.7 g/dL (6.4-8.2); SODIUM 135 mmol/L (136-145); UREA NITROGEN 13 mg/dL (7-18); eGFR NON AFRICAN AMERICAN > 90 mL/min (90-120)
--- NOTE | 2019-02-03 09:24 | NUR ---
PATIENT RESTING COMFORTABLY. NO COMPLAINTS. STATED SCD'S ARE NOT ON DUE TO LEG SWELLING. GAURD AT BEDSIDE. ALL NEEDS MET AT THIS TIME.
[2019-02-03 09:36] VITALS: BP 104/52
[2019-02-03 13:01] VITALS: BP 102/59
[2019-02-03 17:31] VITALS: BP 102/59
--- NOTE | 2019-02-03 19:37 | NUR ---
I have reviewed this patient and I concur with the Shift Assessment completed by the Licensed Practical Nurse today this shift.
[2019-02-03 20:00] VITALS: BP 105/60
[2019-02-04] VITALS: BP 99/59
--- NOTE | 2019-02-04 03:31 | NUR ---
RESTING IN BED NO APPARENT DISTRESS CALL LIGHT IN REACH, DENIES ANY NEEDS AT THIS TIME, REMINDED TO BE NPO AFTER MN
[2019-02-04 04:00] VITALS: BP 93/51
[2019-02-04 04:35] LABS: BASOPHILS 0.7 % (0-2); EOSINOPHILS 2.5 % (0-7); HEMATOCRIT 27.7 % (42.0-54.0); IMMATURE GRANULOCYTES 1.1 % (0-5); LYMPHOCYTES 21.6 % (15-50); MCH 32.6 pg (26.0-34.0); MCHC 32.5 g/dL (31.0-37.0); MCV 100.4 fL (80.0-100.0); MEAN PLATELET VOLUME 11.4 fL (7.4-10.4); MONOCYTES 11.3 % (2-11); NEUTROPHILS 62.8 % (40-80); RBC 2.76 10x6/uL (4.20-6.10)
[2019-02-04 04:39] LABS: APTT 36.8 SECONDS (22.8-39.4); INR 1.59 (0.85-1.17); PROTIME 18.4 SECONDS (11.6-15.0)
[2019-02-04 04:51] LABS: ALBUMIN 1.6 g/dL (3.4-5.0); ALKALINE PHOSPHATASE 79 U/L (46-116); ALT (SGPT) 68 U/L (10-68); BILIRUBIN - TOTAL 3.27 mg/dL (0.2-1.3); CALC OSMOLALITY 269 mosm/kg (275-300); CALCIUM 7.1 mg/dL (8.5-10.1); CARBON DIOXIDE 31.7 mmol/L (21.0-32.0); CHLORIDE - SERUM 100 mmol/L (98-107); CREATININE - SERUM 0.7 mg/dL (0.6-1.3); GLUCOSE 94 mg/dL (74-106); POTASSIUM - SERUM 3.7 mmol/L (3.5-5.1); PROTEIN - SERUM 5.3 g/dL (6.4-8.2); SODIUM 135 mmol/L (136-145); UREA NITROGEN 12 mg/dL (7-18); eGFR NON AFRICAN AMERICAN > 90 mL/min (90-120)
[2019-02-04 04:54] LABS: WBC 2.8 10x3/uL (4.8-10.8)
[2019-02-04 04:55] LABS: PLATELET COUNT 19 10x3/uL (130-400)
[2019-02-04 05:48] LABS: EOSINOPHILS 2 % (0-7); LYMPHOCYTES 18 % (15-50); MONOCYTES 13 % (2-11); NEUTROPHILS 67 % (40-80); PLATELET ESTIMATE DECREASED
[2019-02-04 08:47] VITALS: BP 91/45
[2019-02-04 12:59] VITALS: BP 97/50
--- NOTE | 2019-02-04 14:42 | NUR ---
I have reviewed this patient and I concur with the Shift Assessment completed by the Licensed Practical Nurse today this shift.
[2019-02-04 16:00] VITALS: BP 113/65
--- NOTE | 2019-02-04 16:13 | NUR ---
SPOKE TO PATIENT'S SISTER, ZARI SERRANO, ON TELEPHONE. SHE SATED THAT EU[facility]IA WAS APPROVED FOR A MEDICATION TO TREAT LIVER DISEASE, PROBABLY HEP C, BEFORE GOING TO PRISON BUT THE STATE DEPT OF CORRECTIONS WOULD NOT GIVE THAT MED. SISTER DOES NOT KNOW WHAT THE MEDICATION IS CALLED. I EXPLAINED THAT HE IS IN END STAGE LIVER DISEASE AND THERE ARE MORE FACTORS TO HIS ILLNESS THAN HEPC C ALONE. SHE STATED SHE IS TRYING TO GET HIM APPROVED TO TAKE THE MEDICATION IN PRISON. STATED SHE CONTACTED THE STATE SENETOR FOR HELP IN THE MATTER. SHE IS CURRENTLY TRYING TO ARRANGE A VISIT WITH THE PATIENT SO SHE CAN ALSO TALK TO THE DOCTORS ON HIS CASE.
--- NOTE | 2019-02-04 19:00 | NUR ---
REPORT RECEIVED AND CARE OF PT ASSUMED. PT LYING IN LOW DAUGHERTY'S POSITION WITH BLE ELEVATED. LEFT PICC LINE PATENT WITH NS INFUSING AT AT KVO. MORALES CATHETER DRAINING TO GRAVITY WITH DARK YELLOW URINE IN COLLECTION BAG. ETCHER PHOTOENGRAVING AT BEDSIDE. WILL MONITOR FOR NEEDS.
[2019-02-04 19:46] VITALS: BP 100/53
--- NOTE | 2019-02-04 21:23 | NUR ---
HS MEDICATIONS GIVEN TO INCLUDE TRAMADOL FOR PAIN. WILL CONTINUE TO MONITOR FOR NEEDS.
[2019-02-05] VITALS (7 sets, daily range): BP systolic 94–141; BP diastolic 49–66
--- NOTE | 2019-02-05 00:09 | NUR ---
PT HAD LARGE LOOSE STOOL SOILING THE DRESSING ON BUTTOCKS. REMOVED OLD DRESSING AND CLEANED WOUND ON RIGHT INNER BUTTOCK CHEEK WITH WOULD CLEANSER AND PLACED NEW MEPILEX HEART. CHANGED BEDPAD. POSITIONED FOR COMFORT.
--- NOTE | 2019-02-05 02:15 | NUR ---
GAVE SANDWICH TRAY AND LEMON ONEIDA SODA PER REQUEST. WILL CONTINUE TO MONITOR FOR NEEDS.
--- NOTE | 2019-02-05 05:00 | NUR ---
VINCENT SET UP PT TO SHAVE...HE SHAVED HIMSELF.
[2019-02-05 06:29] LABS: BASOPHILS 1.1 % (0-2); EOSINOPHILS 2.7 % (0-7); HEMATOCRIT 27.9 % (42.0-54.0); IMMATURE GRANULOCYTES 0.8 % (0-5); LYMPHOCYTES 28.2 % (15-50); MCH 32.3 pg (26.0-34.0); MCHC 32.3 g/dL (31.0-37.0); MEAN PLATELET VOLUME 12.2 fL (7.4-10.4); MONOCYTES 12.2 % (2-11); RBC 2.79 10x6/uL (4.20-6.10); RDW 20.4 % (11.5-14.5); WBC 2.6 10x3/uL (4.8-10.8)
[2019-02-05 06:32] LABS: PLATELET COUNT 19 10x3/uL (130-400)
[2019-02-05 06:59] LABS: ALBUMIN 1.4 g/dL (3.4-5.0); ALKALINE PHOSPHATASE 82 U/L (46-116); ALT (SGPT) 59 U/L (10-68); BILIRUBIN - TOTAL 2.51 mg/dL (0.2-1.3); CALC OSMOLALITY 269 mosm/kg (275-300); CALCIUM 7.3 mg/dL (8.5-10.1); CARBON DIOXIDE 27.1 mmol/L (21.0-32.0); CHLORIDE - SERUM 101 mmol/L (98-107); CREATININE - SERUM 0.8 mg/dL (0.6-1.3); GLUCOSE 118 mg/dL (74-106); POTASSIUM - SERUM 3.7 mmol/L (3.5-5.1); PROTEIN - SERUM 5.4 g/dL (6.4-8.2); SODIUM 135 mmol/L (136-145); UREA NITROGEN 9 mg/dL (7-18); eGFR NON AFRICAN AMERICAN > 90 mL/min (90-120)
--- NOTE | 2019-02-05 19:00 | NUR ---
REPORT RECEIVED AND CARE OF PT ASSUMED. PT LYING IN SUPINE POSITION WATCHING TV. LEFT PICC PATENT WITH NS INFUSING AT KVO. O2 IN USE VIA NC AT 2L. CLEAN UP HELPER BANQUET AT BEDSIDE. WILL MONITOR FOR NEEDS.
--- NOTE | 2019-02-05 19:48 | NUR ---
GAVE DILAUDID 1 MG IVP FOR C/O PAIN AT 09/08. WILL MONITOR FOR EFFECITVENESS. SIDE RAILS UP X2 FOR SAFETY. CORRRECTIONAL OFFICER IS AT BEDSIDE.
--- NOTE | 2019-02-05 20:35 | NUR ---
HS MEDICATIONS GIVEN. WILL CONTINUE TO MONITOR FOR NEEDS.
[2019-02-06 04:20] VITALS: BP 98/60
[2019-02-06 07:20] LABS: ALBUMIN 1.4 g/dL (3.4-5.0); ALKALINE PHOSPHATASE 86 U/L (46-116); ALT (SGPT) 59 U/L (10-68); BILIRUBIN - TOTAL 2.39 mg/dL (0.2-1.3); CALC OSMOLALITY 273 mosm/kg (275-300); CALCIUM 7.1 mg/dL (8.5-10.1); CARBON DIOXIDE 28.6 mmol/L (21.0-32.0); CHLORIDE - SERUM 101 mmol/L (98-107); CREATININE - SERUM 0.9 mg/dL (0.6-1.3); GLUCOSE 136 mg/dL (74-106); POTASSIUM - SERUM 3.4 mmol/L (3.5-5.1); PROTEIN - SERUM 5.5 g/dL (6.4-8.2); SODIUM 137 mmol/L (136-145); UREA NITROGEN 7 mg/dL (7-18); eGFR NON AFRICAN AMERICAN > 90 mL/min (90-120)
[2019-02-06 08:07] LABS: HEMATOCRIT 26.5 % (42.0-54.0); HEMOGLOBIN 8.5 g/dL (13.5-17.5); MCH 32.4 pg (26.0-34.0); MCHC 32.1 g/dL (31.0-37.0); MCV 101.1 fL (80.0-100.0); RBC 2.62 10x6/uL (4.20-6.10); WBC 2.3 10x3/uL (4.8-10.8)
[2019-02-06 08:16] LABS: PLATELET COUNT 10 10x3/uL (130-400)
[2019-02-06 08:59] VITALS: BP 109/57
[2019-02-06 09:17] LABS: EOSINOPHILS 2 % (0-7); HYPOCHROMASIA 2+; LYMPHOCYTES 27 % (15-50); MONOCYTES 7 % (2-11); NEUTROPHILS 63 % (40-80); PLATELET ESTIMATE DECREASED
[2019-02-06 13:09] VITALS: BP 113/69
--- NOTE | 2019-02-06 15:19 | NUR ---
I have reviewed this patient and I concur with the Shift Assessment completed by the Licensed Practical Nurse today this shift.
[2019-02-06 16:47] VITALS: BP 115/58
--- NOTE | 2019-02-06 19:15 | NUR ---
RECEIVED CARE FROM DAY NURSE. LYING IN BED WITH GAURD AT SIDE. NO NEEDS VOICED. CALL LIGHT AT SIDE. MORALES TO GRAVITY. SCROTUM SLINGED. IV INFUSING PER ORDER TO LEFT PICC.
[2019-02-06 20:00] VITALS: BP 99/55
[2019-02-07] VITALS (22 sets, daily range): BP systolic 91–146; BP diastolic 42–76
[2019-02-07 06:00] LABS: BASOPHILS 0.4 % (0-2); EOSINOPHILS 4.3 % (0-7); HEMATOCRIT 27.6 % (42.0-54.0); HEMOGLOBIN 8.8 g/dL (13.5-17.5); IMMATURE GRANULOCYTES 0.9 % (0-5); LYMPHOCYTES 45.1 % (15-50); MCH 32.2 pg (26.0-34.0); MCHC 31.9 g/dL (31.0-37.0); MCV 101.1 fL (80.0-100.0); MEAN PLATELET VOLUME 11.1 fL (7.4-10.4); MONOCYTES 10.7 % (2-11); NEUTROPHILS 38.6 % (40-80); RBC 2.73 10x6/uL (4.20-6.10); RDW 20.1 % (11.5-14.5); WBC 2.3 10x3/uL (4.8-10.8)
[2019-02-07 06:07] LABS: INR 1.45 (0.85-1.17)
[2019-02-07 06:41] LABS: ALBUMIN 1.3 g/dL (3.4-5.0); ALKALINE PHOSPHATASE 84 U/L (46-116); ALT (SGPT) 55 U/L (10-68); BILIRUBIN - TOTAL 2.31 mg/dL (0.2-1.3); CALC OSMOLALITY 272 mosm/kg (275-300); CALCIUM 7.4 mg/dL (8.5-10.1); CHLORIDE - SERUM 102 mmol/L (98-107); CREATININE - SERUM 0.7 mg/dL (0.6-1.3); POTASSIUM - SERUM 3.5 mmol/L (3.5-5.1); PROTEIN - SERUM 5.5 g/dL (6.4-8.2); SODIUM 138 mmol/L (136-145); UREA NITROGEN 6 mg/dL (7-18); eGFR NON AFRICAN AMERICAN > 90 mL/min (90-120)
[2019-02-07 06:45] LABS: GLUCOSE 82 mg/dL (74-106)
--- NOTE | 2019-02-07 06:55 | NUR ---
I have reviewed this patient and I concur with the Shift Assessment completed by the Licensed Practical Nurse today this shift.
[2019-02-07 06:58] LABS: PLATELET COUNT 18 10x3/uL (130-400)
--- NOTE | 2019-02-07 15:58 | NUR ---
PATIENT GONE TO PROCEDURE
--- NOTE | 2019-02-07 17:17 | NUR ---
OT NOTE: PT OCMPLETED BED MOB WITH CGA. PT COMPLETED SIT TO STAND WITH CGA.PT COMPLETED BUE AROM AXS. THANK YOU, SYLVIA METZGER
--- NOTE | 2019-02-07 20:20 | NUR ---
PT RESTING IN BED. ALERT AND ORIENTED. NO SIGNS OF DISTRESS. BREATHING EVEN AND UNLABORED. PT STATES NO PROBLEMS AT THIS TIME. IV SITE LT UPPER ARM PICC. DRESSING CLEAN DRY AND INTACT. NO SIGNS OF INFECTION. RT SHOULDER/NECK DRESSING CLEAN DRY AND INTACT. 3LO2 NASAL CANNULA. RT SIDE/ABD DRESSING CLEAN DRY AND INTACT. MORALES IN PLACE AND DRAINING. SOME LOWER SCROTUM AND LOWER LEG SWELLING PRESENT. WILL CONTINUE PLAN OF CARE. CALL LIGHT IN REACH. BED LOWERED AND LOCKED. BED RAILS UP X3. GUARD AT BEDSIDE.
[2019-02-07 20:23] LABS: HEMATOCRIT 20.5 % (42.0-54.0); MCH 32.7 pg (26.0-34.0); MCHC 32.2 g/dL (31.0-37.0); MCV 101.5 fL (80.0-100.0); MEAN PLATELET VOLUME 9.5 fL (7.4-10.4); RBC 2.02 10x6/uL (4.20-6.10); RDW 19.8 % (11.5-14.5)
[2019-02-07 20:28] LABS: HEMOGLOBIN 6.6 g/dL (13.5-17.5); PLATELET COUNT 43 10x3/uL (130-400); WBC 1.9 10x3/uL (4.8-10.8)
[2019-02-07 22:57] LABS: LYMPHOCYTES 33 % (15-50); NEUTROPHILS 67 % (40-80); PLATELET ESTIMATE DECREASED
--- NOTE | 2019-02-07 23:41 | NUR ---
CALLED BLOOD BANK TO SEE IF [facility] WAS READY. THEY ARE STILL NOT READY AT THIS TIME. WILL FALLOW UP WHEN BLOOD IS READY.
[2019-02-08] VITALS (9 sets, daily range): BP systolic 94–115; BP diastolic 53–65; Ht 180.3 cm; Wt 111.2 kg
--- NOTE | 2019-02-08 02:00 | NUR ---
STARTED [facility]. VITALS STABLE. WILL FALLOW UP.
--- NOTE | 2019-02-08 04:46 | NUR ---
I have reviewed this patient and I concur with the Shift Assessment completed by the Licensed Practical Nurse today this shift.
--- NOTE | 2019-02-08 07:46 | NUR ---
RECIEVED BEDSIDE REPORT. AM ROUNDS COMPLETED. VSS, AAOX4, NO S/S OF DISTRESS, RR EVEN AND UNLABORED. PT HAVE DRESSING TO THE RIGHT NECK, C/D/I. LEFT LEG CUFFED TO BED. SECURITY AT BEDSIDE. PT RECIEVING UNITS OF [facility] AT THIS TIME. DENIES ANY FURTHER NEEDS AT THIS TIME. WILL CPOC. CL IN REACH, BED IN LOW, SR UP X2. WILL CT,.
--- NOTE | 2019-02-08 11:00 | NUR ---
PT C/O PAIN. IV 1MG DILAUDID GIVEN. WILL CTM. CL IN REACH, BED IN LOW.
--- NOTE | 2019-02-08 11:38 | NUR ---
DR WELCH STATES PT CAN BE PUT ON A REGULAR DIET. PT CURRENTLY ON REGULAR DIET. DIET COKE GIVEN TO PT PER PT REQUEST. WILL CTM. CL IN REACH, SR UP X2.
[2019-02-08 12:51] LABS: BASOPHILS 0.3 % (0-2); HEMATOCRIT 26.7 % (42.0-54.0); HEMOGLOBIN 8.6 g/dL (13.5-17.5); IMMATURE GRANULOCYTES 0.6 % (0-5); LYMPHOCYTES 31.7 % (15-50); MCH 31.5 pg (26.0-34.0); MCHC 32.2 g/dL (31.0-37.0); MCV 97.8 fL (80.0-100.0); MEAN PLATELET VOLUME 9.4 fL (7.4-10.4); MONOCYTES 10.5 % (2-11); NEUTROPHILS 52.9 % (40-80); PLATELET COUNT 69 10x3/uL (130-400); RBC 2.73 10x6/uL (4.20-6.10); RDW 21.4 % (11.5-14.5); WBC 3.5 10x3/uL (4.8-10.8)
--- NOTE | 2019-02-08 13:00 | NUR ---
PT HAD A DIARRHEA BM. CLEANED PT UP, PT STATES HE IS FEELING MUCH BETTER. ASSESED PT R/L LOWER EXTREMITIES PT LEGS SWOLLEN WITH +2 EDEMA. REINFORCED PT DRESSING ON RIGHT NECK. WILL CPOC. CL IN REACH, BED IN LOW, SR UP X2.
[2019-02-08 13:16] LABS: ALKALINE PHOSPHATASE 93 U/L (46-116); ALT (SGPT) 59 U/L (10-68); BILIRUBIN - TOTAL 3.38 mg/dL (0.2-1.3); CALCIUM 7.5 mg/dL (8.5-10.1); CARBON DIOXIDE 32.1 mmol/L (21.0-32.0); CHLORIDE - SERUM 101 mmol/L (98-107); CREATININE - SERUM 0.8 mg/dL (0.6-1.3); POTASSIUM - SERUM 3.5 mmol/L (3.5-5.1); PROTEIN - SERUM 5.7 g/dL (6.4-8.2); SODIUM 135 mmol/L (136-145); eGFR NON AFRICAN AMERICAN > 90 mL/min (90-120)
[2019-02-08 13:18] LABS: CALC OSMOLALITY 268 mosm/kg (275-300); GLUCOSE 140 mg/dL (74-106); UREA NITROGEN 4 mg/dL (7-18)
[2019-02-08 13:27] LABS: INR 1.38 (0.85-1.17); PROTIME 16.4 SECONDS (11.6-15.0)
--- NOTE | 2019-02-08 16:36 | NUR ---
OT NOTE: PT COMPLETED BED MOB TASKS WITH MIN A. THANK YOU, SYLVIA METZGER
[2019-02-08 19:23] LABS: HEMATOCRIT 26.8 % (42.0-54.0); HEMOGLOBIN 8.6 g/dL (13.5-17.5)
--- NOTE | 2019-02-08 20:10 | NUR ---
PT RESTING IN BED. ALERT AND ORIENTED. NO SIGNS OF DISTRESS. BREATHING EVEN AND UNLBAORED. PT STATES NO PROBLEMS AT THIS TIME. DRESSING ON RT NECK COMING OFF. REINFORCED DRESSING. IV SITE LT UPPER ARM PICC. DRESSING CLEAN DRY AND INTACT. NO SIGNS OF INFECTION. SIDE ABD DRESSING CLEAN DRY AND INTACT. MORALES IN PLACE. LOWER LEG SWELLING. WILL CONTINUE PLAN OF CARE. CALL LIGHT IN REACH. BED LOWERED AND LOCKED. BED RAILS UP X3. GUARD AT BEDSIDE.
--- NOTE | 2019-02-08 20:29 | NUR ---
DR BECK ORDERED NEUPOGEN 300MCG. NEUPOGEN ADMINISTRED PER PROVIDER'S ORDERS.
[2019-02-09 01:33] VITALS: BP 105/55
[2019-02-09 04:48] VITALS: BP 124/64
[2019-02-09 05:17] LABS: BASOPHILS 0.3 % (0-2); EOSINOPHILS 2.9 % (0-7); HEMATOCRIT 28.5 % (42.0-54.0); HEMOGLOBIN 9.1 g/dL (13.5-17.5); IMMATURE GRANULOCYTES 0.3 % (0-5); LYMPHOCYTES 19.8 % (15-50); MCH 31.3 pg (26.0-34.0); MCHC 31.9 g/dL (31.0-37.0); MCV 97.9 fL (80.0-100.0); MEAN PLATELET VOLUME 10.5 fL (7.4-10.4); MONOCYTES 6.6 % (2-11); NEUTROPHILS 70.1 % (40-80); PLATELET COUNT 58 10x3/uL (130-400); RBC 2.91 10x6/uL (4.20-6.10)
[2019-02-09 05:37] LABS: ALBUMIN 1.9 g/dL (3.4-5.0); ALKALINE PHOSPHATASE 99 U/L (46-116); ALT (SGPT) 52 U/L (10-68); BILIRUBIN - TOTAL 3.87 mg/dL (0.2-1.3); CALC OSMOLALITY 270 mosm/kg (275-300); CALCIUM 7.5 mg/dL (8.5-10.1); CARBON DIOXIDE 34.1 mmol/L (21.0-32.0); CHLORIDE - SERUM 99 mmol/L (98-107); CREATININE - SERUM 0.6 mg/dL (0.6-1.3); GLUCOSE 128 mg/dL (74-106); POTASSIUM - SERUM 3.4 mmol/L (3.5-5.1); PROTEIN - SERUM 6.2 g/dL (6.4-8.2); SODIUM 136 mmol/L (136-145); UREA NITROGEN 4 mg/dL (7-18); eGFR NON AFRICAN AMERICAN > 90 mL/min (90-120)
[2019-02-09 05:40] LABS: WBC 6.5 10x3/uL (4.8-10.8)
[2019-02-09 06:06] LABS: PLATELET ESTIMATE DECREASED
--- NOTE | 2019-02-09 07:30 | NUR ---
PATIENT ADMITTED FOR ESOPHAGEAL VARICES WITH BANDING, HCAP, CHIRRHOSIS WITH ELEVATED AMONIA LEVELS. SUTURES AND DRESSING CHANGE TO RIGHT UPPER ABD QUADRANT AND RIGHT SIDE OF NECK BY PORTFOLIO LEAD THIS AM. DRESSINGS REMAIN C/D/I. GUARD AT BEDSIDE UNIVERSAL PRECAUTIONS USED. CL IN REACH
[2019-02-09 09:07] VITALS: BP 117/69
[2019-02-09 13:29] VITALS: BP 129/73
--- NOTE | 2019-02-09 15:30 | NUR ---
BLE EXTREMITIES WITH ULCERS SLIGHT DRAINAGE FOLLOWING SHOWER. ADAPTIC APPLIED TO OPEN AREAS, LEFT ANTERIOR AND MEDIAL, RIGHT LATERAL COVERED WITH ADAPTIC, 4X4, AND WRAPPED WITH KERLIX AND SECURED WITH TAPE
--- NOTE | 2019-02-09 15:30 | NUR ---
PIC DRESSING CHANGED USING STERILE TECHNIQUE
[2019-02-09 17:07] VITALS: BP 116/68
--- NOTE | 2019-02-09 20:30 | NUR ---
PT RESTING IN BED. ALERT AND ORIENTED. NO SIGNS OF DISTRESS. BREATHING EVEN AND UNLABORED. IV SITE LT FA DRESSING CLEAN DRY AND ITNACT. NO SIGNS OF INFECTION. BOWEL SOUNDS ACTIVE. DRESSING RT NECK CLEAN DRY AND ITNACT. 3LO2 NASAL CANNULA. RT ABD DRESSING CLEAN DRY AND INTACT. MORALES IN PLACE AND DRAINING. SWELLING PRESENT SCROTUM AND LOWER LEGS. GUARD AT BEDSIDE. BED LOWERED AND LOCKED. BED RAILS UP X3. WILL CONTINUE PLAN OF CARE. CALL LIGHT IN REACH.
[2019-02-09 21:47] VITALS: BP 110/66
--- NOTE | 2019-02-10 03:35 | NUR ---
I have reviewed this patient and I concur with the Shift Assessment completed by the Licensed Practical Nurse today this shift.
[2019-02-10 04:37] VITALS: BP 131/80
[2019-02-10 05:26] LABS: BASOPHILS 0.3 % (0-2); EOSINOPHILS 3.5 % (0-7); HEMATOCRIT 30.2 % (42.0-54.0); HEMOGLOBIN 9.5 g/dL (13.5-17.5); IMMATURE GRANULOCYTES 0.5 % (0-5); LYMPHOCYTES 26.7 % (15-50); MCHC 31.5 g/dL (31.0-37.0); MCV 98.7 fL (80.0-100.0); MEAN PLATELET VOLUME 10.5 fL (7.4-10.4); MONOCYTES 9.6 % (2-11); NEUTROPHILS 59.4 % (40-80); PLATELET COUNT 59 10x3/uL (130-400); RBC 3.06 10x6/uL (4.20-6.10); RDW 20.4 % (11.5-14.5)
[2019-02-10 05:47] LABS: ALBUMIN 1.9 g/dL (3.4-5.0); ALKALINE PHOSPHATASE 105 U/L (46-116); ALT (SGPT) 51 U/L (10-68); BILIRUBIN - TOTAL 2.95 mg/dL (0.2-1.3); CALC OSMOLALITY 269 mosm/kg (275-300); CALCIUM 7.5 mg/dL (8.5-10.1); CARBON DIOXIDE 32.8 mmol/L (21.0-32.0); CHLORIDE - SERUM 101 mmol/L (98-107); GLUCOSE 111 mg/dL (74-106); POTASSIUM - SERUM 3.4 mmol/L (3.5-5.1); PROTEIN - SERUM 6.4 g/dL (6.4-8.2); SODIUM 136 mmol/L (136-145); UREA NITROGEN 3 mg/dL (7-18)
[2019-02-10 05:48] LABS: CREATININE - SERUM 0.8 mg/dL (0.6-1.3); eGFR NON AFRICAN AMERICAN > 90 mL/min (90-120)
--- NOTE | 2019-02-10 07:35 | NUR ---
PATIENT ADMITTED FOR LIVER STENT AND BANDING OF ESOPHAGEAL VARICES. DRESSING C/D/I TO RIGHT SIDE OF NECK AND UPPER RIGHT ABDOMEN. RESPIRATIONS NONLABORED. MORALES PATENT WITH DARK YELLOW URINE TO BEDSIDE DRAINAGE. GUARD AT BEDSIDE, CL IN REACH
[2019-02-10 10:39] VITALS: BP 117/66
--- NOTE | 2019-02-10 12:23 | NUR ---
OT NOTE: PT DOING MUCH BETTER TODAY. EAGER TO GET UP OUT OF BED. PERFORMED BED MOB WITH MIN ASSIST; ABLE TO DOLORES GOWN WITH SET UP; SET UP FOR SIMPLE GROOMING. ABLE TO AMB INTO HALLWAY APPROX 30-40 FT WITH INCREASED SOB, WALKER, GAIT BELT AND MIN ASSIST. PT VERY FATIGED AND SOB FOLLOWING AMBULAITON. ROSI VO, OTR/L
--- NOTE | 2019-02-10 12:41 | NUR ---
NUTRITION F/U CHART REVIEWED, PT VISIT. PT TOLERATING REG DIET. REFUSED BREAKFAST BUT WAS READY FOR LUNCH. WILL CONTINUE TO HONOR FOOD PREFERENCES, MONITOR PT PROGRESS. RD FOLLOWING
[2019-02-10 17:59] VITALS: BP 110/66
--- NOTE | 2019-02-10 19:00 | NUR ---
REPORT RECEIVED AND CARE OF PT ASSUMED. PT LYING IN MID DAUGHERTY'S POSITION WATCHING TV. LEFT PICC LINE SALINE LOCKED. O2 IN USE VIA NC AT 3L. MORALES CATHETER DRAINING TO GRAVITY WITH SHERON URINE IN COLLECTION BAG. WILL MONITOR FOR NEEDS. TREE CARE FOREMAN AT BEDSIDE.
--- NOTE | 2019-02-10 19:17 | NUR ---
GAVE DILAUDID 1 MG IVP PER REQUEST FOR PAIN AT LEVEL 10/10. WILL MONITOR FOR EFFECTIVENESS. SIDE RAILS UP X2 FOR SAFETY.
--- NOTE | 2019-02-10 20:07 | NUR ---
HS MEDICATIONS GIVEN. WILL CONTINUE TO MONITOR FOR NEEDS. CALL LIGHT WITHIN REACH.
[2019-02-10 20:20] VITALS: BP 114/69
--- NOTE | 2019-02-10 20:54 | NUR ---
OT NOTE: PT COMPLETED BED MOB WITH CGA. PT COMPLETED EOB SITTING BALANCE WITH SBA. PT COMPLETED BUE AROM AXS. THANK YOU,SYLVIA METZGER
--- NOTE | 2019-02-11 04:50 | NUR ---
DISCUSSED REMOVING MORALES CATHETER WITH PT, PER DISCUSSION DAY SHIFT NURSE HAD WITH MD...BLADDER TRAINING DONE LAST EVENING. PT WANTS TO KEEP MORALES UNTIL HE HAS BEEN UP AMBULATING WITH PT MORE...HE WILL DISCUSS WITH .
[2019-02-11 04:59] LABS: BASOPHILS 0.7 % (0-2); EOSINOPHILS 3.9 % (0-7); HEMATOCRIT 29.2 % (42.0-54.0); HEMOGLOBIN 9.2 g/dL (13.5-17.5); IMMATURE GRANULOCYTES 0.7 % (0-5); LYMPHOCYTES 39.1 % (15-50); MCH 31.2 pg (26.0-34.0); MCHC 31.5 g/dL (31.0-37.0); MEAN PLATELET VOLUME 10.2 fL (7.4-10.4); MONOCYTES 15.3 % (2-11); NEUTROPHILS 40.3 % (40-80); PLATELET COUNT 56 10x3/uL (130-400); RBC 2.95 10x6/uL (4.20-6.10)
[2019-02-11 05:03] LABS: WBC 3.2 10x3/uL (4.8-10.8)
[2019-02-11 05:19] LABS: INR 1.43 (0.85-1.17); PROTIME 16.9 SECONDS (11.6-15.0)
[2019-02-11 05:20] VITALS: BP 115/64
[2019-02-11 05:34] LABS: ALBUMIN 1.8 g/dL (3.4-5.0); ALKALINE PHOSPHATASE 111 U/L (46-116); ALT (SGPT) 43 U/L (10-68); BILIRUBIN - TOTAL 2.77 mg/dL (0.2-1.3); CALC OSMOLALITY 264 mosm/kg (275-300); CALCIUM 7.6 mg/dL (8.5-10.1); CARBON DIOXIDE 30.7 mmol/L (21.0-32.0); CHLORIDE - SERUM 100 mmol/L (98-107); CREATININE - SERUM 0.6 mg/dL (0.6-1.3); GLUCOSE 146 mg/dL (74-106); MAGNESIUM - SERUM 1.6 mg/dL (1.8-2.4); POTASSIUM - SERUM 3.6 mmol/L (3.5-5.1); PROTEIN - SERUM 6.5 g/dL (6.4-8.2); SODIUM 133 mmol/L (136-145); eGFR NON AFRICAN AMERICAN > 90 mL/min (90-120)
[2019-02-11 05:39] LABS: UREA NITROGEN 2 mg/dL (7-18)
--- NOTE | 2019-02-11 08:30 | NUR ---
PATIENT IN BED WITH IV INTACT. NO COMPLAINTS OR SIGNS OF DISTRESS. GAURD AT BEDSIDE. CALL LIGHT WITHIN REACH.
[2019-02-11 08:42] LABS: PLATELET ESTIMATE DECREASED
[2019-02-11 08:43] LABS: ANISOCYTOSIS 1+; POLYCHROMASIA OCC
[2019-02-11 09:38] VITALS: BP 114/69
--- NOTE | 2019-02-11 12:08 | NUR ---
OT NOTE: MOD ASSIST TO AMB WITH WALKER TO SHOWER; TRANSFER WITH USE OF GRAB BARS AND WALKER WITH MOD ASSIST; BATHING WITH MIN ASSIST. FATIGUED FOLLOWING SHOWER. ROSI VO, OTR/L
[2019-02-11 13:55] VITALS: BP 109/67
[2019-02-11 18:07] VITALS: BP 117/72
--- NOTE | 2019-02-11 18:18 | NUR ---
PATIENT IN BED WITH ICC LINE INTACT. NO COMPLAINTS OR SIGNS OF DISTRESS. ARABELLA AT BEDSIDE. CALL LIGHT WITHIN REACH.
--- NOTE | 2019-02-11 19:00 | NUR ---
REPORT RECEIVED AND CARE OF PT ASSUMED. PT LYING IN SUPINE POSITION WATCHING TV. LEFT PICC LINE SALINE LOCKED. MORALES CATHETER DRAINING TO GRAVITY WITH SHERON URINE IN COLLECTION BAG. WILL MONITOR FOR NEEDS. GLASS CHECKER AT BEDSIDE.
--- NOTE | 2019-02-11 20:43 | NUR ---
HS MEDICATIONS GIVEN TO INCLUDE DILAUDID 1 MG IVP PER REQUEST FOR PAIN. WILL CONTINUE TO MONITOR FOR NEEDS. PT DECLINES HS SNACK AT THIS TIME.
[2019-02-11 20:53] VITALS: BP 115/68
[2019-02-12 01:19] VITALS: BP 123/67
--- NOTE | 2019-02-12 02:10 | NUR ---
ASSISTED PT IN USING BEDPAN TO HAVE LARGE LOOSE BM. BEDPADS CHANGED AND JUAN DANIEL CARE PERFORMED. GAVE DILAUDID 1 MG IVP PER REQUEST FOR PAIN. WILL CONTINUE TO MONITOR FOR NEEDS.
[2019-02-12 05:27] VITALS: BP 109/63
[2019-02-12 07:12] LABS: HEMATOCRIT 28.8 % (42.0-54.0); HEMOGLOBIN 9.2 g/dL (13.5-17.5); MCH 31.2 pg (26.0-34.0); MCHC 31.9 g/dL (31.0-37.0); MCV 97.6 fL (80.0-100.0); MEAN PLATELET VOLUME 10.8 fL (7.4-10.4); PLATELET COUNT 59 10x3/uL (130-400); RBC 2.95 10x6/uL (4.20-6.10); RDW 19.8 % (11.5-14.5); WBC 2.4 10x3/uL (4.8-10.8)
[2019-02-12 07:36] LABS: ALBUMIN 1.8 g/dL (3.4-5.0); ALKALINE PHOSPHATASE 113 U/L (46-116); ALT (SGPT) 43 U/L (10-68); BILIRUBIN - TOTAL 2.29 mg/dL (0.2-1.3); CALC OSMOLALITY 265 mosm/kg (275-300); CALCIUM 7.4 mg/dL (8.5-10.1); CARBON DIOXIDE 29.1 mmol/L (21.0-32.0); CHLORIDE - SERUM 99 mmol/L (98-107); CREATININE - SERUM 0.7 mg/dL (0.6-1.3); GLUCOSE 123 mg/dL (74-106); POTASSIUM - SERUM 3.2 mmol/L (3.5-5.1); PROTEIN - SERUM 6.7 g/dL (6.4-8.2); SODIUM 134 mmol/L (136-145); UREA NITROGEN 3 mg/dL (7-18); eGFR NON AFRICAN AMERICAN > 90 mL/min (90-120)
[2019-02-12 08:00] LABS: EOSINOPHILS 6 % (0-7); LYMPHOCYTES 45 % (15-50); MONOCYTES 22 % (2-11); NEUTROPHILS 25 % (40-80); PLATELET ESTIMATE DECREASED
--- NOTE | 2019-02-12 08:00 | NUR ---
PATIENT IN BED WITH NO COMPLAINTS OR SIGNS OF DISTRESS AT THIS TIME. IV INTACT. GAURD AT BEDSIDE. SCDS ON AND WORKING. CALL LIGHT WITHIN REACH.
[2019-02-12 09:19] VITALS: BP 117/73
[2019-02-12 14:25] VITALS: BP 104/64
[2019-02-12] MEDS ORDERED: PROPRANOLOL HCL20 MG PO (15:42)
[2019-02-12] MEDS ORDERED: ALDACTONE100 MG PO (15:42)
[2019-02-12] MEDS ORDERED: CHRONULAC30 ML PO (16:06)
--- NOTE | 2019-02-12 17:00 | NUR ---
PATIENT MORALES REMOVED AT THIS TIME. PATIENT TOLERATED WITH SMALL AMOUNT OF PAIN. BOUDREUXS PLACED ON BUTTOCKS DUE TO EXCORIATION FROM FREQUENT STOOLS. WAS TOLD BY DC NURSE THAT PATIENT IS NOT BEING DISCHARGED TODAY BC THE LONG-TERM DOES NOT TAKE BACK PATIENTS ON THE WEEKENDS. EXPLAINED TO PATIENT. LEAVING PICC LINE IN UNTIL DC. DARI AT BEDSIDE. CALL LIGHT WITHIN REACH.
[2019-02-12 18:05] VITALS: BP 108/66
--- NOTE | 2019-02-12 18:17 | MORECARE ---
CASE MANAGEMENT DISCHARGE SUMMARY PATIENT: BRIAN GIRON UNIT: [id number] ADM DATE: 01/27/19 AGE: 53 : 65 SEX: M ROOM/BED: D.2215 AUTHOR: REESE HAYWARD PHYSICIAN: REFERRING PHYSICIAN: AKBAR LANDEROS MD DATE OF SERVICE: 02/12/19 Discharge Plan Patient Name: BRIAN GIRON [facility] [facility] 1965 Planned Disposition: Court\Law Enforcement Anticipated Discharge Date: Discharge Date: Expected LOS: Initial Reviewer: [email or web address] Initial Review Date: 02/01/2019 Generated: 02/12/19 7:16 pm Comments DCP- Discharge Planning Updated by [email or web address]: Madison Eaton on 02/12/19 5:[address] PATIENT FOR DISCHARGE TODAY TO [facility]. DR ISABEL AT FACILITY STATED PATIENT COULD NOT RETURN UNTIL THURSDAY DUE TO STAFFING AND LACK OF AVAILABLE SERVICES. DCP- Discharge Planning Updated by [email or web address]: Deana Barfield on 02/01/19 12:[address] PATIENT WILL RETURN [facility] UPON DISCHARGE. CM WILL CONTINUE TO FOLLOW AND ASSIST NEEDED WITH DISCHARGE PLANNING / NEEDS. Last DP export: 02/01/19 12:51 pm Patient Name: BRIAN GIRON Page [phone] at 1817 All edits/amendments must be made on the electronic document DICTATION DATE: 02/12/191815 CERTIFICATION OFFICER: PERLA 02/12/191815 RPT#: [id number] DC DATE: STATUS: ADM IN [facility] [address] [place] [address] END OF REPORT
--- NOTE | 2019-02-12 19:00 | NUR ---
REPORT RECEIVED AND CARE OF PT ASSUMED. PT LYING IN LOW DAUGHERTY'S POSITION WATCHING TV. LEFT PICC LINE SALINE LOCKED. O2 IN USE VIA NC AT 3L. WILL MONITOR FOR NEEDS. ROUGHING MILL OPERATOR AT BEDSIDE.
--- NOTE | 2019-02-12 23:30 | NUR ---
PT C/O SHORTNESS OF BREATH...RESPIRATIONS 20 AND O2 SAT 95%
[2019-02-13 00:19] VITALS: BP 107/62
[2019-02-13 04:32] VITALS: BP 116/63
[2019-02-13 05:57] LABS: BASOPHILS 0.6 % (0-2); EOSINOPHILS 2.3 % (0-7); HEMATOCRIT 31.7 % (42.0-54.0); HEMOGLOBIN 9.9 g/dL (13.5-17.5); IMMATURE GRANULOCYTES 1.7 % (0-5); LYMPHOCYTES 27.7 % (15-50); MCH 30.6 pg (26.0-34.0); MCHC 31.2 g/dL (31.0-37.0); MCV 97.8 fL (80.0-100.0); MEAN PLATELET VOLUME 11.1 fL (7.4-10.4); MONOCYTES 16.7 % (2-11); RBC 3.24 10x6/uL (4.20-6.10); RDW 19.8 % (11.5-14.5)
[2019-02-13 06:05] LABS: WBC 6.6 10x3/uL (4.8-10.8)
[2019-02-13 06:06] LABS: PLATELET COUNT 71 10x3/uL (130-400)
[2019-02-13 06:29] LABS: ALBUMIN 1.8 g/dL (3.4-5.0); ALKALINE PHOSPHATASE 120 U/L (46-116); ALT (SGPT) 38 U/L (10-68); BILIRUBIN - TOTAL 2.64 mg/dL (0.2-1.3); CALC OSMOLALITY 263 mosm/kg (275-300); CALCIUM 7.7 mg/dL (8.5-10.1); CHLORIDE - SERUM 99 mmol/L (98-107); CREATININE - SERUM 0.8 mg/dL (0.6-1.3); GLUCOSE 117 mg/dL (74-106); POTASSIUM - SERUM 3.4 mmol/L (3.5-5.1); PROTEIN - SERUM 6.9 g/dL (6.4-8.2); SODIUM 133 mmol/L (136-145); UREA NITROGEN 3 mg/dL (7-18); eGFR NON AFRICAN AMERICAN > 90 mL/min (90-120)
--- NOTE | 2019-02-13 09:41 | NUR ---
PT ALERT X 4. BREATH SOUNDS CLEAR BILAT. SCAB/SORE TO RUQ OF ABDOMEN. PICC LINE TO LEFT UPPER ARM. PT REPORTING PAIN OF 4/10, WILL MONITOR. GUARD AT BEDSIDE. BED LOW, CALL LIGHT IN REACH. NO OTHER NEEDS AT THIS TIME.
[2019-02-13 10:10] VITALS: BP 109/67
[2019-02-13 14:23] VITALS: BP 104/63
[2019-02-13 16:00] VITALS: BP 109/64
--- NOTE | 2019-02-13 19:00 | NUR ---
REPORT RECEIVED AND CARE OF PT ASSUMED. PT LYING IN LOW DAUGHERTY'S POSITION WATCHING TV. LEFT PICC LINE SALINE LOCKED. PARALLEL COMPUTING SOFTWARE ENGINEER AT BEDSIDE. WILL MONITOR FOR NEEDS.
[2019-02-13 20:00] VITALS: BP 103/62
--- NOTE | 2019-02-13 21:24 | NUR ---
HS MEDICATIONS GIVEN TO INCLUDE DILAUDID PER PRN ORDER, PER REQUEST. WILL CONTINUE TO MONITOR FOR NEEDS.
[2019-02-14] VITALS: BP 110/58
[2019-02-14 03:00] VITALS: BP 111/60
[2019-02-14 04:51] LABS: BASOPHILS 0.9 % (0-2); EOSINOPHILS 2.4 % (0-7); HEMATOCRIT 31.3 % (42.0-54.0); HEMOGLOBIN 9.9 g/dL (13.5-17.5); IMMATURE GRANULOCYTES 4.4 % (0-5); LYMPHOCYTES 35.4 % (15-50); MCH 30.9 pg (26.0-34.0); MCHC 31.6 g/dL (31.0-37.0); MCV 97.8 fL (80.0-100.0); MEAN PLATELET VOLUME 10.3 fL (7.4-10.4); MONOCYTES 15.9 % (2-11); PLATELET COUNT 71 10x3/uL (130-400); RDW 19.8 % (11.5-14.5); WBC 5.4 10x3/uL (4.8-10.8)
[2019-02-14 05:07] LABS: ALBUMIN 1.9 g/dL (3.4-5.0); ALKALINE PHOSPHATASE 127 U/L (46-116); ALT (SGPT) 36 U/L (10-68); BILIRUBIN - TOTAL 2.25 mg/dL (0.2-1.3); CALC OSMOLALITY 269 mosm/kg (275-300); CALCIUM 7.9 mg/dL (8.5-10.1); CARBON DIOXIDE 29.7 mmol/L (21.0-32.0); CHLORIDE - SERUM 101 mmol/L (98-107); CREATININE - SERUM 0.7 mg/dL (0.6-1.3); GLUCOSE 131 mg/dL (74-106); POTASSIUM - SERUM 3.4 mmol/L (3.5-5.1); PROTEIN - SERUM 7.2 g/dL (6.4-8.2); SODIUM 136 mmol/L (136-145); eGFR NON AFRICAN AMERICAN > 90 mL/min (90-120)
[2019-02-14 05:08] LABS: UREA NITROGEN 2 mg/dL (7-18)
[2019-02-14 09:23] VITALS: BP 118/79
--- NOTE | 2019-02-14 10:15 | NUR ---
PT LYING IN BED, ASSISTED PT WITH BEDPAN, PT TO BE DC TODAY. ADMINISTERED PRN PAIN MEDICATION AT 10, PT STATED PAIN AT A 10, GUARD AT BEDSIDE, CONTINUE WITH PLAN OF CARE
[2019-02-14 13:49] VITALS: BP 109/67
--- NOTE | 2019-02-15 12:15 | MORECARE ---
CASE MANAGEMENT DISCHARGE SUMMARY PATIENT: BRIAN GIRON UNIT: [id number] ADM DATE: 01/27/19 AGE: 53 : 65 SEX: M ROOM/BED: D.2215 AUTHOR: REESE HAYWARD PHYSICIAN: REFERRING PHYSICIAN: AKBAR LANDEROS MD DATE OF SERVICE: 02/15/19 Discharge Plan Patient Name: BRIAN GIRON Facility: [facility]:[place] : 1965 Planned Disposition: Court\Law Enforcement Anticipated Discharge Date: Discharge Date: 02/14/2019 Expected LOS: 0 Initial Reviewer: [email or web address] Initial Review Date: 02/01/2019 Generated: 02/15/19 1:15 pm Comments DCP- Discharge Planning Updated by [email or web address]: Madison Eaton on 02/12/19 5:[address] PATIENT FOR DISCHARGE TODAY TO [facility]. DR ISABEL AT FACILITY STATED PATIENT COULD NOT RETURN UNTIL THURSDAY DUE TO STAFFING AND LACK OF AVAILABLE SERVICES. DCP- Discharge Planning Updated by [email or web address]: Deana Barfield on 02/01/19 12:[address] PATIENT WILL RETURN [facility] UPON DISCHARGE. CM WILL CONTINUE TO FOLLOW AND ASSIST NEEDED WITH DISCHARGE PLANNING / NEEDS. Last DP export: 02/12/19 5:16 p Patient Name: BRIAN GIRON Page [phone] at 1215 All edits/amendments must be made on the electronic document DICTATION DATE: 02/15/19 1215 REFERRAL NURSE: PERLA 02/15/19 1215 RPT#: [id number] DC DATE:02/14/19 STATUS: DIS IN [facility] [address] [place] [address] END OF REPORT
== END 2019-02-14 14:25 | DRG 981 ==
LOC: D.ER 15:23 → D.EDHOLD 19:06 → D.MS 19:06 → D.ICU 19:06 → D.M3 19:06 → D.ICU 01-28 17:47 → D.MS 02-02 16:12
PROVIDERS: Emergency Medicine; Family Medicine; General Practice; Internal Medicine Gastroenterology; Radiology Diagnostic Radiology; ADMIT Internal Medicine Nephrology; ATTEND Internal Medicine Nephrology
PROC: 0DJ08ZZ Inspection of Upper Intestinal Tract, Via Natural or Artificial Opening Endoscopic (ICD-10-PCS; principal; 2019-01-28 16:22)
PROC: 0W9G3ZZ Drainage of Peritoneal Cavity, Percutaneous Approach (ICD-10-PCS; 2019-01-31)
PROC: 03LY3DZ Occlusion of Upper Artery with Intraluminal Device, Percutaneous Approach (ICD-10-PCS; 2019-02-07)
PROC: B51 Imaging, Veins, Fluoroscopy (ICD-10-PCS; 2019-02-07)
DX: J69.0 Pneumonitis due to inhalation of food and vomit (principal); G92 Toxic encephalopathy; J96.01 Acute respiratory failure with hypoxia; I85.11 Secondary esophageal varices with bleeding; D62 Acute posthemorrhagic anemia; D68.9 Coagulation defect, unspecified; E87.0 Hyperosmolality and hypernatremia; D61.818 Other pancytopenia; J18.1 Lobar pneumonia, unspecified organism; K70.31 Alcoholic cirrhosis of liver with ascites; B19.20 Unspecified viral hepatitis C without hepatic coma; I10 Essential (primary) hypertension; D50.9 Iron deficiency anemia, unspecified; D69.6 Thrombocytopenia, unspecified; K72.90 Hepatic failure, unspecified without coma

== ENCOUNTER 2019-08-30 05:16 | Day surgery (SDC) | payer OTHER ==
[~2019-08-30] VITALS: Ht 180.3 cm; Wt 92.3 kg
[~2019-08-30 05:16] MED LIST changes: +ALDACTONE100 MG PO
[2019-08-30 06:14] LABS: HEMATOCRIT 36.5 % (42.0-54.0); HEMOGLOBIN 12.3 g/dL (13.5-17.5); MCHC 33.7 g/dL (31.0-37.0); MCV 95.1 fL (80.0-100.0); RBC 3.84 10x6/uL (4.20-6.10); RDW 14.2 % (11.5-14.5); WBC 3.5 10x3/uL (4.8-10.8)
[2019-08-30] MEDS ORDERED: VITAMIN B-12100 MCG PO (06:15)
[2019-08-30] MEDS ORDERED: ZOFRAN8 MG PO (06:16)
[2019-08-30] MEDS ORDERED: HYDROCODON-ACE1 EAC7 PO (06:16)
[2019-08-30 06:22] VITALS: BP 102/69; Ht 180.3 cm; Wt 92.3 kg
[2019-08-30 06:25] LABS: APTT 30.7 SECONDS (22.8-39.4); INR 1.23 (0.85-1.17)
[2019-08-30 06:42] LABS: ALBUMIN 2.7 g/dL (3.4-5.0); ALKALINE PHOSPHATASE 103 U/L (46-116); ALT (SGPT) 68 U/L (10-68); BILIRUBIN - TOTAL 0.79 mg/dL (0.2-1.3); CALC OSMOLALITY 279 mosm/kg (275-300); CALCIUM 8.4 mg/dL (8.5-10.1); CARBON DIOXIDE 27.8 mmol/L (21.0-32.0); CHLORIDE - SERUM 107 mmol/L (98-107); CREATININE - SERUM 0.9 mg/dL (0.6-1.3); GLUCOSE 107 mg/dL (74-106); POTASSIUM - SERUM 3.8 mmol/L (3.5-5.1); PROTEIN - SERUM 6.3 g/dL (6.4-8.2); SODIUM 140 mmol/L (136-145); UREA NITROGEN 14 mg/dL (7-18); eGFR NON AFRICAN AMERICAN > 90 mL/min (90-120)
--- NOTE | 2019-08-30 11:20 | HP ---
PATIENT: BRIAN GIRON MEDICAL RECORD: [id number] ACCOUNT: [id number] LOCATION:[facility] : 65 ADMISSION DATE: 08/30/19 PCP: No PCP HISTORY AND PHYSICAL EXAMINATION CHIEF COMPLAINT: Esophageal varices. HISTORY OF PRESENT ILLNESS: The patient has recently undergone upper endoscopy. This revealed danger signs such as red spots and boy signs. These indicate impending rupture of varices. We are going to plan for an elective banding of these varices in the hopes we can help prevent a life-threatening bleeding as occurred in the past with this patient. The main risk is bleeding. I told the patient if he began bleeding, we would have to insert an endotracheal tube and in order to protect his lungs. He understands this. PAST MEDICAL AND SURGICAL HISTORY: COPD, asthma, hypertension, cirrhosis, liver failure, history of hepatitis C, history of pulmonary edema, nasal polyps. History of esophageal variceal rupture, which was a life-threatening situation. SOCIAL HISTORY: Nonsmoker. HOME MEDICINES: Please see the nursing list. PHYSICAL EXAMINATION: GENERAL: The patient does not appear acutely ill. He does not appear chronically ill. VITAL SIGNS: Reviewed. EARS: External ears appear normal. EYES: Extraocular movements are intact. NECK: Trachea is midline. CHEST: No intercostal retractions. PULMONARY: Nonlabored, no stridor. IMPRESSION: History of liver failure with esophageal varices with danger signs indicating an impending rupture of the varices. PLAN: EGD with esophageal banding. TRANSINT:[id number] Voice Confirmation ID: [id number] DOCUMENT ID: [id number] YURI GALLARDO MD at 1120 CC: HANDY ROSENTHAL MD and JACQUELINE ISABEL [id number] DICTATION DATE: 08/30/19 1025 DEVICE PROCESSING ENGINEER: 08/30/19 1043 REG [facility] [address] [place] [address]
--- NOTE | 2019-08-30 11:45 | NUR ---
DC INSTRUCTIONS GIVEN TO PT. STATES UNDERSTANDING.
--- NOTE | 2019-08-30 12:31 | NUR ---
DC'D IV CATH FULLY INTACT. VOIDED. PT LEFT UNIT VIA WC AT 1227
--- NOTE | 2019-08-30 12:57 | OP ---
PATIENT NAME: BRIAN GIRON MEDICAL RECORD: [id number] :65 LOCATION:D.[facility] ADMISSION DATE: SURGEON: YURI GALLARDO MD DATE OF OPERATION: 08/30/2019 PREOPERATIVE DIAGNOSES: 1. History of esophageal variceal bleeding. 2. Cirrhosis. 3. Portal hypertension. 4. Thrombocytopenia. 5. Hepatitis C. POSTOPERATIVE DIAGNOSES: 1. History of esophageal variceal bleeding. 2. Cirrhosis. 3. Portal hypertension. 4. Thrombocytopenia. 5. Hepatitis C. PROCEDURES: EGD with endoscopic banding of esophageal varices times 6. SURGEON: Yuri Gallardo MD SENIOR INTERACTIVE PRODUCER: None. BLOOD LOSS: Minimal. ANESTHESIA: IV sedation. COMPLICATIONS: None. The possible risks, possible complications, and alternatives to the procedure were explained to the patient. He elects to proceed. It was necessary for the anesthesia staff to be present, so that they can be available to perform endotracheal intubation should the patient develop a life-threatening bleeding and hematemesis from the banding procedure. ENDOSCOPIC COURSE: The patient was conveyed to the endoscopy electively on 08/30/2019. IV sedation was induced by the anesthesia staff. A bite block was inserted. A gastroscope with an endoscopic band lining bander was inserted into the mouth. It was advanced easily into the hypopharynx. The esophagus was easily intubated as were the stomach and duodenum. Upon withdrawal, retroflexed and angulus views were obtained. I then withdrew the band lining bander into the esophagus. There were "danger signs" such as boy signs and red spots. I banded the most worrisome varices. The patient has grade IV esophageal varices. There was virtually no bleeding. The endoscope was then withdrawn under direct vision. The patient was then conveyed to the endoscopy recovery room. There is no need for the patient to follow up with me in the office unless he develops complication related to this operative procedure. I could see the patient in consultation out at the half-way. I would recommend that his next surveillance upper endoscopy to take place in 1 year. TRANSINT:[id number] Voice Confirmation ID: [id number] DOCUMENT ID: [id number] OPERATIVE REPORT [id number] BRIAN GIRON YURI GALLARDO MD at 1257 CC: HANDY ROSENTHAL MD and JACQUELINE ISABEL [id number] DICTATION DATE: 08/30/19 1141 SENIOR DATABASE ENGINEER: 08/30/19 1155 [facility] [place] 08/30/19 [facility] [address] [place] [address]
== END 2019-08-30 12:27 | disposition home or self-care (01) ==
LOC: D.OPS 05:16
PROVIDERS: Anesthesiology; ATTEND Surgery
DX: I85.00 Esophageal varices without bleeding (principal); K74.60 Unspecified cirrhosis of liver; K76.6 Portal hypertension; D69.6 Thrombocytopenia, unspecified; B19.20 Unspecified viral hepatitis C without hepatic coma

== ENCOUNTER 2020-07-24 09:16 | Day surgery (SDC) | payer MEDICAID ==
[~2020-07-24] VITALS: Ht 180.3 cm; Wt 104.5 kg
--- NOTE | ~2020-07-24 | OP ---
PATIENT NAME: BRIAN DE LOS SANTOS MEDICAL RECORD: [id number] :65 LOCATION:D.OPS ADMISSION DATE: SURGEON: YURI GALLARDO MD DATE OF OPERATION: 07/24/2020 PREOPERATIVE DIAGNOSES: Portal hypertension with esophageal varices, some of which have ominous signs such as boy signs and pimentel red spots. These are indicative of impending rupture. POSTOPERATIVE DIAGNOSES: 1. Portal hypertension with esophageal varices, some of which have ominous signs such as boy signs and pimentel red spots. These are indicative of impending rupture. 2. Mild antral gastritis. PROCEDURE: 1. Esophagogastroduodenoscopy with antral cold endoscopic biopsies. 2. Endoscopic esophageal banding times 3 (endoscopic variceal ligation). SURGEON: Yuri Gallardo MD LEAD INFORMATICA DEVELOPER: None. BLOOD LOSS: Minimal. ANESTHESIA: IV sedation. COMPLICATIONS: None. The risks, possible complications and alternatives to the procedure were explained to the patient. He elects to proceed. The discussion specifically included, but was not limited to, bleeding requiring emergency reoperation, infection, delayed bleeding and the possible need for additional banding procedures in the future. ENDOSCOPIC COURSE: The patient was conveyed to the endoscopy suite electively on 07/24/2020. IV sedation was induced by the anesthesia staff. A bite block was inserted. A gastroscope was inserted into the mouth. It was advanced easily into the hypopharynx. The esophagus was easily intubated as were the stomach and duodenum. Upon withdrawal, retroflexed and angulus views were obtained. Cold endoscopic biopsies were obtained in the antrum. I went back and utilizing the hot biopsy forceps technique, I cauterized the biopsy sites until they were completely hemostatic. The gastroscope was then withdrawn under direct vision. An endoscopic type copyist was placed. I readvanced the gastroscope and down the esophagus. I identified 3 of the largest varices, all of which had either boy sign or pimentel red spots. These were successfully banded utilizing 3 endoscopic bands. There was no bleeding. The gastroscope was then withdrawn under direct vision. The patient lives down in [place]. It is going to be hassle for him to come all the way to [place] just so that I can review the results of the gastric biopsies. He is already on a proton pump inhibitor as well as Carafate. I have OPERATIVE REPORT [id number] BRIAN DE LOS SANTOS instructed Larisa, my nurse, to let me know in a week or two what the pathology shows and also should give Mr. De Los Santos a call. I warned him that he is to call me immediately if he starts to develop upper GI bleeding with hematemesis. The patient was thrombocytopenic today and during the procedure, received intravenous platelets. TRANSINT:[id number] Voice Confirmation ID: [id number] DOCUMENT ID: [id number] YURI GALLARDO MD CC: TERESA SALCEDO [facility] [id number] DICTATION DATE: 07/24/[address] VENDOR: 07/25/20 0204 [facility] 07/24/20 [facility] [address] [place] [address]
--- NOTE | ~2020-07-24 | HP ---
PATIENT: BRIAN GIRON MEDICAL RECORD: [id number] ACCOUNT: [id number] LOCATION:[facility] : 65 ADMISSION DATE: 07/24/20 PCP: TERESA SALCEDO HISTORY AND PHYSICAL EXAMINATION PRINCIPAL DIAGNOSIS: History of esophageal varices. HISTORY OF PRESENT ILLNESS: The patient has history of bleeding from esophageal varices. I have performed an endoscopic variceal ligation on the patient in the past. He has been treated for his hepatitis C and reportedly has a negative viral load for hepatitis C. He is thrombocytopenic today and will be receiving packed red blood cells. There is a history of portal hypertension. PAST MEDICAL AND SURGICAL HISTORY: COPD, asthma, hypertension, history of liver failure. SOCIAL HISTORY: Nonsmoker. HOME MEDICATIONS: Please see the nursing list. PHYSICAL EXAMINATION: GENERAL: The patient does not appear acutely ill. He does not appear chronically ill. VITAL SIGNS: Reviewed. EARS: External ears appear normal. EYES: The patient has disconjugate gaze. PULMONARY: Nonlabored. IMPRESSION: History of life threatening variceal bleeding in a patient with portal hypertension. PLAN: EGD with esophageal variceal ligation. The risks, possible complications and alternatives to the procedure were explained to the patient. He elects to proceed. TRANSINT:[id number] Voice Confirmation ID: [id number] DOCUMENT ID: [id number] YURI GALLARDO MD CC: TERESA SALCEDO [facility] [id number] DICTATION DATE: 07/24/20 1444 MANAGED SERVICES CONSULTANT: 07/24/20 1705 [facility] 07/24/20 [place] [id number] [place] [id number]
[~2020-07-24 09:16] MED LIST changes: +HYDROCODON-ACE1 EAC7 PO; +VITAMIN B-12100 MCG PO; +ZOFRAN8 MG PO
[2020-07-24] MEDS ORDERED: PROPRANOLOL HCL20 MG PO (10:32)
[2020-07-24] MEDS ORDERED: FOLIC ACID1 MG PO (10:34)
[2020-07-24] MEDS ORDERED: CARAFATE1 G (10:35)
[2020-07-24] MEDS ORDERED: K-DUR20 MEQ PO (10:37)
[2020-07-24 10:53] VITALS: BP 109/49; Ht 180.3 cm; Wt 104.5 kg
[2020-07-24 11:09] LABS: BASOPHILS 0.6 % (0-2); HEMATOCRIT 42.1 % (42.0-54.0); HEMOGLOBIN 14.4 g/dL (13.5-17.5); IMMATURE GRANULOCYTES 0.3 % (0-5); MCH 32.4 pg (26.0-34.0); MCHC 34.2 g/dL (31.0-37.0); MCV 94.6 fL (80.0-100.0); MEAN PLATELET VOLUME 10.8 fL (7.4-10.4); NEUTROPHILS 47.1 % (40-80); RBC 4.45 10x6/uL (4.20-6.10); RDW 13.2 % (11.5-14.5); WBC 3.3 10x3/uL (4.8-10.8)
[2020-07-24 11:10] LABS: PLATELET COUNT 61 10x3/uL (130-400)
[2020-07-24 11:12] LABS: APTT 24.9 SECONDS (22.8-39.4); INR 1.11 (0.85-1.17); PROTIME 14.3 SECONDS (11.6-15.0)
[2020-07-24 11:24] LABS: ALBUMIN 3.4 g/dL (3.4-5.0); ANION GAP 8.5 mmol/L (8-16); BILIRUBIN - TOTAL 1.18 mg/dL (0.2-1.3); CALCIUM 8.8 mg/dL (8.5-10.1); CARBON DIOXIDE 26.8 mmol/L (21.0-32.0); CREATININE - SERUM 1.2 mg/dL (0.6-1.3); POTASSIUM - SERUM 4.3 mmol/L (3.5-5.1)
[2020-07-24 13:02] LABS: PLATELET ESTIMATE DECREASED
[2020-07-24 13:03] LABS: ROULEAUX OCC
--- NOTE | 2020-07-24 16:30 | NUR ---
DISCHARGE INSTRUCTIONS REVIEWED WITH PATIENT AND SISTER. LEFT WRIST PIV DC'D WITH TIP INTACT. DISCHARGED VIA WHEELCHAIR TO PRIVATE VEHICLE WITH SISTER
== END 2020-07-24 16:32 | disposition home or self-care (01) ==
LOC: D.OPS 09:16
PROVIDERS: ATTEND Surgery
DX: I85.00 Esophageal varices without bleeding (principal); K29.60 Other gastritis without bleeding; J44.9 Chronic obstructive pulmonary disease, unspecified; J45.909 Unspecified asthma, uncomplicated; I10 Essential (primary) hypertension; K72.90 Hepatic failure, unspecified without coma